=== PATIENT | male | born 1935 | race Caucasian/White ===

== ENCOUNTER 2017-11-22 22:45 | Inpatient (IN) | payer MEDICARE ==
[2017-11-22 22:46] VITALS: BMI 25.8
--- NOTE | 2017-11-22 23:19 | ED PDOC ---
HPI:STROKE - Time Time: 22:50 (on arrival in ED) - Historian Historian: Patient, Family (daughter) - Chief Complaint Chief Complaint: Weakness - Onset Date: 11/22/17 (82 year old male with altered mental status was brought into the ED by family members complaining of weakness onset three days ago. 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 Reports patient has decreased in response, PO intake, and is unresponsive. Patient take daily Plavix. ) NIHSS Stroke Scale - Date/Time Evaluation Performed Date Performed: 11/22/17 Time Performed: 22:50 When Was NIHSS Performed: Baseline - How Severe is the Stroke Level of Consciousness: 1=Drowsy LOC to Questions: 2=Neither correct LOC to commands: 2=Neither correct Best Gaze: 0=Normal Visual: 1=Partial hemianopia Facial: 0=Normal Motor Arm - Left: 1=Drift noted before 10 sec (from prior stroke) Motor Arm - Right: 0=No drift Motor Leg - Left: 1=Drift before 5 sec Motor Leg - Right: 0=No drift Limb Ataxia: 0=Absent Sensory: 1=Mild to moderate loss Best Language: 2=Severe aphasia Dysarthia: 2=Severe, near unintelligible or worse Extinction & Inattention (Neglect): 1=Partial neglect (mild partha-attention) Score: 14 Severity Of Stroke: 5-15 = Moderate Stroke rTPA Inclusion/Exclusion - Refusal of Treatment Patient Refused Treatment: No - Inclusion Criteria for Altepase Patient is 18 years or Older: Yes The Clinical Diagnosis of Ischemic Stroke That is Causing a Potentially Disabling Neurological Deficit: No Time of Onset is Well Established to be Less Than 270 Minute Before Treatment Would Begin: No Risk/Benefit Discussed With Patient/Family Member Present: No - Exclusion Criteria for Altepase Uncontrolled Hypertension at Time of Treatment (Systolic BP above 185 or Diastolic BP above 110 mmHg): No Active Internal Bleeding: No Known Bleeding Diathesis Including but Not Limited to: Platelets Below 100,000/ mm,PTT Above 40 sec After Heparin Use, Current Use of Oral Anitcoagulant With INR Greater Than 1.7 or PT Greater Than 15 secs: No Evidence of an Intracranial Hemorrhage: No Evidence of Major Acute Infarct With Signs Greater Than 1/3 MCA Territory: No Suspicion of Subarachnoid Hemorrhage on Pretreatment Evaluation Even if CT Head Negative For Hemorrhage: No - Warning to TPA With Conditions Following Conditions Weighed Against Anticipated Benefit: No Past Medical History Reviewed: Historical Data, Nursing Documentation, Vital Signs Vital Signs: Last Vital Signs Temp Pulse 74 11/22/17 23:05 Resp 18 11/22/17 23:05 BP 135/87 11/22/17 23:05 Pulse Ox 94 L 11/22/17 23:05 - Medical History PMH: CVA (2003), HTN Denies: Chronic Kidney Disease - Surgical History Surgical History: No Surg Hx - Family History Family History: States: Unknown Family Hx - Social History Current smoker - smoking cessation education provided: No Alcohol: None Drugs: Denies - Home Medications Home Medications: Ambulatory Orders Medication Instructions Recorded Clopidogrel [Plavix] 75 mg PO DAILY #0 tab 02/11/15 Metoprolol Succinate [Toprol XL] 50 mg PO DAILY #0 tab 02/11/15 - Allergies Allergies/Adverse Reactions: Allergies Allergy/AdvReac Type Severity Reaction Status Date / Time No Known Allergies Allergy Verified 02/08/15 17:24 Review of Systems ROS Statement: Except As Marked, All Systems Reviewed And Found Negative Gastrointestinal: Positive for: Other (decreased PO intake) Neurological: Positive for: Weakness, Other (decreased response; unresponsive) Psych: Negative for: Suicidal ideation (homicidal ideation) Physical Exam - Reviewed Nursing Documentation Reviewed: Yes Vital Signs Reviewed: Yes - Physical Exam Appears: Positive for: Well, No Acute Distress (thin elderly male) Head Exam: Positive for: ATRAUMATIC, NORMAL INSPECTION, NORMOCEPHALIC Skin: Positive for: Normal Color, Dry (dry mucous membranes) Eye Exam: Positive for: EOMI, Normal appearance, PERRL Neck: Positive for: Normal, Painless ROM Cardiovascular/Chest: Positive for: Regular Rate, Rhythm Respiratory: Positive for: Decreased Breath Sounds Gastrointestinal/Abdominal: Positive for: Normal Exam, Soft Neurologic/Psych: Negative for: Alert, Oriented - Laboratory Results Result Diagrams: 11/23/17 05:10 11/23/17 05:10 - ECG O2 Sat by Pulse Oximetry: 94 (RA) Pulse Ox Interpretation: Normal - Critical Care Total Time (In Min): 30 Medical Decision Making Medical Decision Making: Time: 2304 Initial Plan: altered mental status, apahasia for 3 days rule out stroke rule out electrolye abnormalities rule out infection --BBK --Head w/o (code stroke) [CT] --EKG --CMP --Hemoglobin A1C --Lipid Panel --Troponin I --CBC w/ differential --Partial Thromboplastin Time [COAG] --Prothrombin Time [COAG] --Chest portable [RAD] --Glucose, POC Routine --awake overnight monitor --ED obtain labs --Glucose, Blood, POC --Nursing Swallow Screen once --Vital Signs --Swallow Eval & Treat Routine --Reevaluation Time: 2329 EXAM: CT Head Without Intravenous Contrast FINDINGS: Brain: Prominence of the sulci and ventricular system consistent with atrophy. Diffuse hypodensity throughout the white matter consistent with chronic small vessel disease. No intracranial mass, mass effect, or midline shift. No hemorrhage. Ventricles: See above. Bones/joints: Unremarkable. No acute fracture. Soft tissues: Unremarkable. Sinuses: Left maxillary sinus mucous retention cyst versus polyp. Mastoid air cells: Unremarkable as visualized. No mastoid effusion. IMPRESSION: 1. No acute intracranial abnormality. 2. Remainder of findings as above. Time: [address] Ojeda. service correspondent Dr. Ojeda wanted to administer 300mg ASA rectally and perform MRI of the brain and CTA in the morning. Time: [address] Enriquez and intensive care dr , Dr. Haider who will accept patient. Time: 99 Rectal temperature was 96 so bear-huggers placed. fole yplace for urine as well. iv fluids ordered NA resulted 160. pt hypernatremic, with renal failure as well. VBG shows acidosis. ordered ABG as well. changed fluids to 1/2NS due to hypernatremia. Dr Haider came to bedside to see patient. DX hypernatremia, alterred mental status Scribe Attestation: Documented by Rakesh Willett, acting as a scribe for Makenzie Johnson MD Provider Scribe Attestation: All medical record entries made by the Scribe were at my direction and personally dictated by me. I have reviewed the chart and agree that the record accurately reflects my personal performance of the history, physical exam, medical decision making, and the department course for this patient. I have also personally directed, reviewed, and agree with the discharge instructions and disposition. Disposition - Clinical Impression Clinical Impression: Acute renal failure, Hypernatremia - Patient ED Disposition Is Patient to be Admitted: Yes - Disposition Disposition Time: 00:00 Condition: SERIOUS
[2017-11-22] MEDS ORDERED: Sodium Chloride 0.9% 1,000 ML IV STA (23:24)
--- NOTE | 2017-11-22 23:30 | CT ---
EXAM: CT Head Without Intravenous Contrast CLINICAL HISTORY: 82 years old, male; Signs and symptoms; Altered mental status/memory loss; Other: Weakness; Patient HX: HX of aneurysm; Additional info: Altered mental status for 3 days TECHNIQUE: Axial computed tomography images of the head/brain without intravenous contrast. All CT scans at this facility use one or more dose reduction techniques, viz.: automated exposure control; ma/kV adjustment per patient size (including targeted exams where dose is matched to indication; i.e. head); or iterative reconstruction technique. Coronal and sagittal reformatted images were created and reviewed. COMPARISON: No relevant prior studies available. FINDINGS: Brain: Prominence of the sulci and ventricular system consistent with atrophy. Diffuse hypodensity throughout the white matter consistent with chronic small vessel disease. No intracranial mass, mass effect, or midline shift. No hemorrhage. Ventricles: See above. Bones/joints: Unremarkable. No acute fracture. Soft tissues: Unremarkable. Sinuses: Left maxillary sinus mucous retention cyst versus polyp. Mastoid air cells: Unremarkable as visualized. No mastoid effusion. IMPRESSION: 1. No acute intracranial abnormality. 2. Remainder of findings as above.
[2017-11-22 23:37] LABS: BASO % 0.4 % (0.0-2.0); HEMOGLOBIN 19.4 g/dL (12.0-18.0); LYMPH # 1.3 K/uL (1.0-4.3); LYMPH % 9.8 % (20.0-40.0); MEAN CELL VOLUME 93.8 fl (80.0-94.0); MEAN CORPUSCULAR HEMOGLOBIN 30.2 pg (27.0-31.0); MEAN CORPUSCULAR HGB CONC 32.2 g/dL (33.0-37.0); MONO # 0.8 K/uL (0.0-0.8); MONO % 6.1 % (0.0-10.0); NEUT # 11.3 K/uL (1.8-7.0); NEUT % 83.7 % (50.0-75.0); PLATELET COUNT 167 K/uL (130-400); RBC 6.41 Mil/uL (4.40-5.90); RED CELL DISTRIBUTION WIDTH 13.9 % (11.5-14.5); WHITE BLOOD COUNT 13.5 K/uL (4.8-10.8)
[2017-11-23 00:01] LABS: TROPONIN I 0.102 ng/mL (0.00-0.120)
[2017-11-23 00:26] LABS: ALB/GLOB RATIO 0.9 (1.0-2.1); ALBUMIN 4.6 g/dL (3.5-5.0); CALCIUM 10.3 mg/dL (8.4-10.2)
--- NOTE | 2017-11-23 00:55 | CP.PCM.CON ---
History of Present Illness - History of Present Illness History of Present Illness: CC: AMS History obtained from family HPI: This is an 82 y/o male with prior CVA and L sided paralysis and HTN who was brought in by family after they noted him to not be eating very well the last 3 days and becoming significantly less communicative since this AM. Per family, patient has not complained of anything specific -- no CP, no f/c/n/v/d. Patient has not been drinking much fluid last few days either. ROS: Patient cannot perform due to AMS MHx: CVA in 2003 with L side paralysis, HTN SHx: None noted Allergies: NKDA Medications: Per med rec, completion pending Family Hx: Cannot provide, prior history in chart notes no important family Hx Social Hx: Lives with family, no tobacco or EtOH Past Patient History - Past Medical History & Family History Past Medical History?: Yes - Past Social History Alcohol: None Drugs: Denies - CARDIAC Hx Hypertension: Yes - PULMONARY Hx Respiratory Disorders: No - NEUROLOGICAL HX Cerebrovascular Accident: Yes (CVA 2003) - HEENT Hx HEENT Problems: No - RENAL Hx Chronic Kidney Disease: No - ENDOCRINE/METABOLIC Hx Endocrine Disorders: No - HEMATOLOGICAL/ONCOLOGICAL Hx Blood Disorders: No - INTEGUMENTARY Hx Dermatological Problems: No - MUSCULOSKELETAL/RHEUMATOLOGICAL Hx Musculoskeletal Disorders: No Hx Falls: No - GASTROINTESTINAL Hx Gastrointestinal Disorders: No - GENITOURINARY/GYNECOLOGICAL Hx Genitourinary Disorders: No - PSYCHIATRIC Hx Psychophysiologic Disorder: No Hx Substance Use: No - SURGICAL HISTORY Hx Surgeries: No - ANESTHESIA Hx Anesthesia: Yes Hx Anesthesia Reactions: No Hx Malignant Hyperthermia: No Meds Allergies/Adverse Reactions: Allergies Allergy/AdvReac Type Severity Reaction Status Date / Time No Known Allergies Allergy Verified 02/08/15 17:24 - Medications Medications: Current Medications Aspirin (Aspirin Supp) 300 mg NV DAILY ALANNAH Heparin Sodium (Porcine) (Heparin) 5,000 units SC Q8 ALANNAH PRN Reason: Protocol Sodium Chloride (Sodium Chloride 0.45%) 1,000 mls @ 200 mls/hr IV .Q5H ALANNAH Stop: 11/23/17 10:59 Insulin Human Lispro (Humalog) 0 units SC Q6H ALANNAH PRN Reason: Protocol Physical Exam - Constitutional Appears: Confused - Head Exam Head Exam: ATRAUMATIC, NORMOCEPHALIC - Eye Exam Eye Exam: EOMI, PERRL - ENT Exam ENT Exam: Mucous Membranes Dry - Neck Exam Neck exam: Positive for: Full Rom - Respiratory Exam Respiratory Exam: Clear to Auscultation Bilateral, NORMAL BREATHING PATTERN - Cardiovascular Exam Cardiovascular Exam: REGULAR RHYTHM, +S1, +S2 - GI/Abdominal Exam GI & Abdominal Exam: Normal Bowel Sounds, Soft - Extremities Exam Additional comments: Patient with paralysis of L side of body - Neurological Exam Additional comments: altered, does not answer questions, but does follow some commands - Skin Skin Exam: Dry, Warm Results - Vital Signs Recent Vital Signs: Last Vital Signs Temp Pulse 109 H 11/22/17 23:37 Resp 18 11/22/17 23:37 BP 109/76 11/22/17 23:37 Pulse Ox 94 L 11/23/17 00:43 - Labs Result Diagrams: 11/22/17 23:34 11/22/17 23:34 Labs: Laboratory Results - last 24 hr 11/22/17 11/22/17 11/22/17 22:58 23:34 23:34 WBC 13.5 H RBC 6.41 H Hgb 19.4 H Hct 60.1 H MCV 93.8 MCH 30.2 MCHC 32.2 L RDW 13.9 Plt Count 167 MPV 12.0 H Neut % (Auto) 83.7 H Lymph % (Auto) 9.8 L [place] % (Auto) 6.1 Eos % (Auto) 0.0 Baso % (Auto) 0.4 Neut # (Auto) 11.3 H Lymph # (Auto) 1.3 [place] # (Auto) 0.8 Eos # (Auto) 0.0 Baso # (Auto) 0.0 Sodium 166 H* Potassium 4.2 Chloride 114 H Carbon Dioxide 18 L Anion Gap 38 H BUN 99 H Creatinine 2.6 H Est GFR ( Amer) 29 Est GFR (Non-Af Amer) 24 POC Glucose (mg/dL) 188 H Random Glucose 249 H Calcium 10.3 H Total Bilirubin 1.6 H AST 96 H ALT 65 Alkaline Phosphatase 123 Troponin I 0.1020 Total Protein 9.7 H Albumin 4.6 Globulin 5.2 H Albumin/Globulin Ratio 0.9 L Triglycerides 217 H Cholesterol 232 H LDL Cholesterol Direct 140 H HDL Cholesterol 42 - Imaging and Cardiology CT scan - head Status: Image reviewed by me, Report reviewed by me (IMPRESSION:) Assessment & Plan (1) Altered mental status Assessment and Plan: 82 y/o male with AMS being admitted to ICU because of severe hypernatremia, possible CVA. 1) AMS/possible CVA vs. electrolyte abnormality -admit ICU -NPO, IVF for now -ASA 300 NV x 1 now -Neuro Consult (Ojeda) in AM -Possible CTA and MRI (some of this may depend on renal function) -Consider Carotid doppler if unable to do CTA, and obtain echo as well -Serial trops -Swallow eval in AM given patient with difficulty swallowing 2) Likely ARF as well as electrolyte abn (hypernatremia) -Per calculation, FW deficit is about 5 L; will use 1/2 NS for now, which will require about 10 L total; to correct at only 0.5 mEq/hr and avoid complication do to overly rapid correction, max per hour is 240 cc; will start at 200 cc/hr and repeat BMP this AM and re-assess -UA, Ulytes, UCr, Uosms, serum osms 3) DM2 -NPO for now -q6h accucheck with SSI 4) DVT PPx -- SQ heparin Status: Acute (2) CVA (cerebral vascular accident) Status: Acute (3) Hypernatremia Status: Acute (4) Acute renal failure Status: Acute (5) DM2 (diabetes mellitus, type 2) Status: Acute (6) DVT prophylaxis Status: Acute
[2017-11-23] MEDS ORDERED: Insulin Lispro (humaLOG) 100 Units/ml Inj SC SCH (01:00)
[2017-11-23] MEDS ORDERED: Sodium Chloride 0.45% 1,000 ML IV SCH (01:00)
[2017-11-23 01:14] LABS: VENOUS BLOOD GAS BASE EXCESS -9.9 mmol/L (0.0-2.0); VENOUS BLOOD GAS PCO2 79 mmHg (40-60); VENOUS BLOOD GAS PO2 39 mm/Hg (30-55); VENOUS BLOOD PH 7.07 (7.32-7.43)
[2017-11-23 01:20] LABS: INR 1.2 (0.9-1.2); PARTIAL THROMBOPLASTIN TIME 31.3 Seconds (25.6-37.1); PROTHROMBIN TIME 12.8 Seconds (9.8-13.1); SQUAMOUS EPITHIAL < 1 /hpf (0-5); URINE BACTERIA RARE (<OCC); URINE BILIRUBIN NEGATIVE (NEGATIVE); URINE BLOOD SMALL (NEGATIVE); URINE CLARITY SLIGHTY-CLOUDY (Clear); URINE COLOR AMBER (YELLOW); URINE GLUCOSE (UA) NEG (Normal); URINE LEUKOCYTE ESTERASE NEG Leu/uL (Negative); URINE PROTEIN 30 mg/dL (NEGATIVE)
[2017-11-23 01:56] LABS: ANISOCYTOSIS SLIGHT; LYMPHOCYTE 9 % (20-50); MONOCYTE 1 % (0-10); NEUTROPHIL 88 % (42-75); PLATELET ESTIMATE NORMAL (NORMAL); REACTIVE LYMPHOCYTES 2 % (0-0); TEARDROP CELLS SLIGHT; TOTAL CELLS COUNTED 100
[2017-11-23 02:00] LABS: CREATININE, RANDOM URINE 314.5 mg/dL
[2017-11-23 05:59] LABS: HEMOGLOBIN 16.9 g/dL (12.0-18.0); MEAN CELL VOLUME 93.5 fl (80.0-94.0); MEAN CORPUSCULAR HEMOGLOBIN 30.1 pg (27.0-31.0); MEAN CORPUSCULAR HGB CONC 32.2 g/dL (33.0-37.0); RBC 5.59 Mil/uL (4.40-5.90); RED CELL DISTRIBUTION WIDTH 13.9 % (11.5-14.5); WHITE BLOOD COUNT 12.3 K/uL (4.8-10.8)
[2017-11-23 06:27] LABS: CALCIUM 8.1 mg/dL (8.4-10.2)
--- NOTE | 2017-11-23 09:09 | RAD ---
HISTORY: Code Stroke COMPARISON: No prior. FINDINGS: LUNGS: No active pulmonary disease. PLEURA: No significant pleural effusion identified, no pneumothorax apparent. CARDIOVASCULAR: Atherosclerotic aortic calcifications. Cardiomediastinal silhouette within normal limits. OSSEOUS STRUCTURES: Degenerative changes. VISUALIZED UPPER ABDOMEN: Normal. OTHER FINDINGS: None. IMPRESSION: No active disease.
[2017-11-23] MEDS: Insulin Lispro (humaLOG) 100 Units/ml Inj SC SCH ×3 (12:00→23:15)
--- NOTE | 2017-11-23 12:28 | CP.PCM.HP ---
History of Present Illness - History of Present Illness History of Present Illness: Cc: Weakness An 82 y/o male with prior CVA and L sided paralysis and HTN who was brought in by family after they noted him to not be eating very well the last 3 days and becoming significantly less communicative since this AM. Per family, patient has not complained of anything specific -- no CP, no f/c/n/v/d. Patient has not been drinking much fluid past few days. Present on Admission - Present on Admission Any Indicators Present on Admission: No Review of Systems - Review of Systems Review of Systems: Unable to perform ROS because patient cannot provide information Past Patient History - Past Medical History & Family History Past Medical History?: Yes - Past Social History Alcohol: None Drugs: Denies - CARDIAC Hx Hypertension: Yes - PULMONARY Hx Respiratory Disorders: No - NEUROLOGICAL HX Cerebrovascular Accident: Yes (CVA 2003) - HEENT Hx HEENT Problems: No - RENAL Hx Chronic Kidney Disease: No - ENDOCRINE/METABOLIC Hx Endocrine Disorders: No - HEMATOLOGICAL/ONCOLOGICAL Hx Blood Disorders: No Hx AIDS: No Hx Human Immunodeficiency Virus (HIV): No - INTEGUMENTARY Hx Dermatological Problems: No - MUSCULOSKELETAL/RHEUMATOLOGICAL Hx Musculoskeletal Disorders: No Hx Falls: No - GASTROINTESTINAL Hx Gastrointestinal Disorders: No - GENITOURINARY/GYNECOLOGICAL Hx Genitourinary Disorders: No - PSYCHIATRIC Hx Psychophysiologic Disorder: No Hx Substance Use: No - SURGICAL HISTORY Hx Surgeries: No - ANESTHESIA Hx Anesthesia: Yes Hx Anesthesia Reactions: No Hx Malignant Hyperthermia: No Meds Allergies/Adverse Reactions: Allergies Allergy/AdvReac Type Severity Reaction Status Date / Time No Known Allergies Allergy Verified 02/08/15 17:24 Physical Exam - Constitutional Appears: Well, No Acute Distress - Head Exam Head Exam: ATRAUMATIC, NORMOCEPHALIC - Eye Exam Eye Exam: EOMI, Normal appearance - ENT Exam ENT Exam: Mucous Membranes Moist - Neck Exam Neck exam: Positive for: Normal Inspection - Respiratory Exam Respiratory Exam: Clear to Auscultation Bilateral, NORMAL BREATHING PATTERN - Cardiovascular Exam Cardiovascular Exam: REGULAR RHYTHM, +S1, +S2 - GI/Abdominal Exam GI & Abdominal Exam: Normal Bowel Sounds, Soft - Extremities Exam Additional comments: moves extremities but has left sided weakness - Back Exam Back exam: NORMAL INSPECTION - Neurological Exam Neurological exam: Altered - Skin Skin Exam: Normal Color, Warm Results - Vital Signs Recent Vital Signs: Last Vital Signs Temp 97.6 F 04/20/18 08:00 Pulse 93 H 11/23/17 10:00 Resp 16 11/23/17 10:00 BP 114/81 11/23/17 10:00 Pulse Ox 98 11/23/17 10:00 - Labs Result Diagrams: 11/26/17 05:00 11/26/17 05:00 Labs: Laboratory Results - last 24 hr 11/22/17 11/22/17 11/22/17 22:58 23:34 23:34 WBC 13.5 H RBC 6.41 H Hgb 19.4 H Hct 60.1 H MCV 93.8 MCH 30.2 MCHC 32.2 L RDW 13.9 Plt Count 167 MPV 12.0 H Neut % (Auto) 83.7 H Lymph % (Auto) 9.8 L [place] % (Auto) 6.1 Eos % (Auto) 0.0 Baso % (Auto) 0.4 Neut # (Auto) 11.3 H Lymph # (Auto) 1.3 [place] # (Auto) 0.8 Eos # (Auto) 0.0 Baso # (Auto) 0.0 Neutrophils % (Manual) 88 H Lymphocytes % (Manual) 9 L Reactive Lymphs % 2 H Monocytes % (Manual) 1 Platelet Estimate Normal Anisocytosis (manual) Slight Tear Drop Cells Slight PT INR APTT pO2 ABG Carboxyhemoglobin POC ABG HHb (Measured) ABG Methemoglobin VBG pH VBG pCO2 VBG HCO3 VBG O2 Sat (Calc) VBG Base Excess VBG Hgb O2 Saturation Hemoglobin Crit Value Called To Crit Value Called By Crit Value Read Back Blood Gas Notified Time Sodium 166 H* Potassium 4.2 Chloride 114 H Carbon Dioxide 18 L Anion Gap 38 H BUN 99 H Creatinine 2.6 H Est GFR ( Amer) 29 Est GFR (Non-Af Amer) 24 POC Glucose (mg/dL) 188 H Random Glucose 249 H Serum Osmolality Calcium 10.3 H Total Bilirubin 1.6 H AST 96 H ALT 65 Alkaline Phosphatase 123 Troponin I 0.1020 Total Protein 9.7 H Albumin 4.6 Globulin 5.2 H Albumin/Globulin Ratio 0.9 L Triglycerides 217 H Cholesterol 232 H LDL Cholesterol Direct 140 H HDL Cholesterol 42 Urine Color Urine Clarity Urine pH Ur Specific [place] Urine Protein Urine Glucose (UA) Urine Ketones Urine Blood Urine Nitrate Urine Bilirubin Urine Urobilinogen Ur Leukocyte Esterase Urine RBC (Auto) Urine Microscopic WBC Ur Squamous Epith Cells Urine Bacteria Hyaline Casts Urine Osmolality Ur Random Creatinine Ur Random Sodium Ur Random Potassium Blood Type Blood Type Confirm Antibody Screen BBK History Checked 11/23/17 11/23/17 11/23/17 00:50 01:09 01:09 WBC RBC Hgb Hct MCV MCH MCHC RDW Plt Count MPV Neut % (Auto) Lymph % (Auto) [place] % (Auto) Eos % (Auto) Baso % (Auto) Neut # (Auto) Lymph # (Auto) [place] # (Auto) Eos # (Auto) Baso # (Auto) Neutrophils % (Manual) Lymphocytes % (Manual) Reactive Lymphs % Monocytes % (Manual) Platelet Estimate Anisocytosis (manual) Tear Drop Cells PT 12.8 INR 1.2 APTT 31.3 pO2 ABG Carboxyhemoglobin POC ABG HHb (Measured) ABG Methemoglobin VBG pH VBG pCO2 VBG HCO3 VBG O2 Sat (Calc) VBG Base Excess VBG Hgb O2 Saturation Hemoglobin Crit Value Called To Crit Value Called By Crit Value Read Back Blood Gas Notified Time Sodium Potassium Chloride Carbon Dioxide Anion Gap BUN Creatinine Est GFR ( Amer) Est GFR (Non-Af Amer) POC Glucose (mg/dL) Random Glucose Serum Osmolality Calcium Total Bilirubin AST ALT Alkaline Phosphatase Troponin I Total Protein Albumin Globulin Albumin/Globulin Ratio Triglycerides Cholesterol LDL Cholesterol Direct HDL Cholesterol Urine Color [place] Urine Clarity Slighty-cloudy Urine pH 5.0 Ur Specific [place] 1.025 Urine Protein 30 Urine Glucose (UA) Neg Urine Ketones Negative Urine Blood Small Urine Nitrate Negative Urine Bilirubin Negative Urine Urobilinogen 2.0 Ur Leukocyte Esterase Neg Urine RBC (Auto) 2 Urine Microscopic WBC 3 Ur Squamous Epith Cells < 1 Urine Bacteria Rare Hyaline Casts 11-20 H Urine Osmolality Ur Random Creatinine Ur Random Sodium Ur Random Potassium Blood Type O POSITIVE Blood Type Confirm Antibody Screen Negative BBK History Checked No verified bt 11/23/17 11/23/17 11/23/17 01:09 01:27 02:37 WBC RBC Hgb Hct MCV MCH MCHC RDW Plt Count MPV Neut % (Auto) Lymph % (Auto) [place] % (Auto) Eos % (Auto) Baso % (Auto) Neut # (Auto) Lymph # (Auto) [place] # (Auto) Eos # (Auto) Baso # (Auto) Neutrophils % (Manual) Lymphocytes % (Manual) Reactive Lymphs % Monocytes % (Manual) Platelet Estimate Anisocytosis (manual) Tear Drop Cells PT INR APTT pO2 39 ABG Carboxyhemoglobin 2.2 H POC ABG HHb (Measured) 37.8 H ABG Methemoglobin 2.5 VBG pH 7.07 L* VBG pCO2 79 H* VBG HCO3 15.6 VBG O2 Sat (Calc) 60.3 VBG Base Excess -9.9 L VBG Hgb O2 Saturation 57.5 L Hemoglobin 19.6 H Crit Value Called To Dr lottie gracia Crit Value Called By 292 Crit Value Read Back Y Blood Gas Notified Time 114 Sodium Potassium Chloride Carbon Dioxide Anion Gap BUN Creatinine Est GFR ( Amer) Est GFR (Non-Af Amer) POC Glucose (mg/dL) 211 H Random Glucose Serum Osmolality Calcium Total Bilirubin AST ALT Alkaline Phosphatase Troponin I Total Protein Albumin Globulin Albumin/Globulin Ratio Triglycerides Cholesterol LDL Cholesterol Direct HDL Cholesterol Urine Color Urine Clarity Urine pH Ur Specific [place] Urine Protein Urine Glucose (UA) Urine Ketones Urine Blood Urine Nitrate Urine Bilirubin Urine Urobilinogen Ur Leukocyte Esterase Urine RBC (Auto) Urine Microscopic WBC Ur Squamous Epith Cells Urine Bacteria Hyaline Casts Urine Osmolality 725 Ur Random Creatinine 314.5 Ur Random Sodium 10 Ur Random Potassium 67.5 Blood Type Blood Type Confirm Antibody Screen BBK History Checked 11/23/17 11/23/17 11/23/17 05:10 05:10 05:10 WBC 12.3 H RBC 5.59 Hgb 16.9 D Hct 52.3 H MCV 93.5 MCH 30.1 MCHC 32.2 L RDW 13.9 Plt Count 135 MPV Neut % (Auto) Lymph % (Auto) [place] % (Auto) Eos % (Auto) Baso % (Auto) Neut # (Auto) Lymph # (Auto) [place] # (Auto) Eos # (Auto) Baso # (Auto) Neutrophils % (Manual) Lymphocytes % (Manual) Reactive Lymphs % Monocytes % (Manual) Platelet Estimate Anisocytosis (manual) Tear Drop Cells PT INR APTT pO2 ABG Carboxyhemoglobin POC ABG HHb (Measured) ABG Methemoglobin VBG pH VBG pCO2 VBG HCO3 VBG O2 Sat (Calc) VBG Base Excess VBG Hgb O2 Saturation Hemoglobin Crit Value Called To Crit Value Called By Crit Value Read Back Blood Gas Notified Time Sodium 153 H Potassium 3.2 L Chloride 107 Carbon Dioxide 25 Anion Gap 24 H BUN 90 H Creatinine 2.1 H Est GFR ( Amer) 37 Est GFR (Non-Af Amer) 31 POC Glucose (mg/dL) Random Glucose 198 H Serum Osmolality 349 H Calcium 8.1 L Total Bilirubin AST ALT Alkaline Phosphatase Troponin I Total Protein Albumin Globulin Albumin/Globulin Ratio Triglycerides Cholesterol LDL Cholesterol Direct HDL Cholesterol Urine Color Urine Clarity Urine pH Ur Specific [place] Urine Protein Urine Glucose (UA) Urine Ketones Urine Blood Urine Nitrate Urine Bilirubin Urine Urobilinogen Ur Leukocyte Esterase Urine RBC (Auto) Urine Microscopic WBC Ur Squamous Epith Cells Urine Bacteria Hyaline Casts Urine Osmolality Ur Random Creatinine Ur Random Sodium Ur Random Potassium Blood Type Blood Type Confirm Antibody Screen BBK History Checked 11/23/17 11/23/17 11/23/17 05:15 06:30 06:47 WBC RBC Hgb Hct MCV MCH MCHC RDW Plt Count MPV Neut % (Auto) Lymph % (Auto) [place] % (Auto) Eos % (Auto) Baso % (Auto) Neut # (Auto) Lymph # (Auto) [place] # (Auto) Eos # (Auto) Baso # (Auto) Neutrophils % (Manual) Lymphocytes % (Manual) Reactive Lymphs % Monocytes % (Manual) Platelet Estimate Anisocytosis (manual) Tear Drop Cells PT INR APTT pO2 ABG Carboxyhemoglobin POC ABG HHb (Measured) ABG Methemoglobin VBG pH VBG pCO2 VBG HCO3 VBG O2 Sat (Calc) VBG Base Excess VBG Hgb O2 Saturation Hemoglobin Crit Value Called To Crit Value Called By Crit Value Read Back Blood Gas Notified Time Sodium Potassium Chloride Carbon Dioxide Anion Gap BUN Creatinine Est GFR ( Amer) Est GFR (Non-Af Amer) POC Glucose (mg/dL) 195 H Random Glucose Serum Osmolality Calcium Total Bilirubin AST ALT Alkaline Phosphatase Troponin I 0.0960 Total Protein Albumin Globulin Albumin/Globulin Ratio Triglycerides Cholesterol LDL Cholesterol Direct HDL Cholesterol Urine Color Urine Clarity Urine pH Ur Specific [place] Urine Protein Urine Glucose (UA) Urine Ketones Urine Blood Urine Nitrate Urine Bilirubin Urine Urobilinogen Ur Leukocyte Esterase Urine RBC (Auto) Urine Microscopic WBC Ur Squamous Epith Cells Urine Bacteria Hyaline Casts Urine Osmolality Ur Random Creatinine Ur Random Sodium Ur Random Potassium Blood Type Blood Type Confirm O POSITIVE Antibody Screen BBK History Checked 11/23/17 11:59 WBC RBC Hgb Hct MCV MCH MCHC RDW Plt Count MPV Neut % (Auto) Lymph % (Auto) [place] % (Auto) Eos % (Auto) Baso % (Auto) Neut # (Auto) Lymph # (Auto) [place] # (Auto) Eos # (Auto) Baso # (Auto) Neutrophils % (Manual) Lymphocytes % (Manual) Reactive Lymphs % Monocytes % (Manual) Platelet Estimate Anisocytosis (manual) Tear Drop Cells PT INR APTT pO2 ABG Carboxyhemoglobin POC ABG HHb (Measured) ABG Methemoglobin VBG pH VBG pCO2 VBG HCO3 VBG O2 Sat (Calc) VBG Base Excess VBG Hgb O2 Saturation Hemoglobin Crit Value Called To Crit Value Called By Crit Value Read Back Blood Gas Notified Time Sodium Potassium Chloride Carbon Dioxide Anion Gap BUN Creatinine Est GFR ( Amer) Est GFR (Non-Af Amer) POC Glucose (mg/dL) 191 H Random Glucose Serum Osmolality Calcium Total Bilirubin AST ALT Alkaline Phosphatase Troponin I Total Protein Albumin Globulin Albumin/Globulin Ratio Triglycerides Cholesterol LDL Cholesterol Direct HDL Cholesterol Urine Color Urine Clarity Urine pH Ur Specific [place] Urine Protein Urine Glucose (UA) Urine Ketones Urine Blood Urine Nitrate Urine Bilirubin Urine Urobilinogen Ur Leukocyte Esterase Urine RBC (Auto) Urine Microscopic WBC Ur Squamous Epith Cells Urine Bacteria Hyaline Casts Urine Osmolality Ur Random Creatinine Ur Random Sodium Ur Random Potassium Blood Type Blood Type Confirm Antibody Screen BBK History Checked - Imaging and Cardiology CT scan - head Additional comment: HEAD W/O CONTRAST Exam Date: 11/22/17 This imaging exam was performed at [facility] EXAM: CT Head Without Intravenous Contrast CLINICAL HISTORY: 82 years old, male; Signs and symptoms; Altered mental status/memory loss; Other: Weakness; Patient HX: HX of aneurysm; Additional info: Altered mental status for 3 days TECHNIQUE: Axial computed tomography images of the head/brain without intravenous contrast. All CT scans at this facility use one or more dose reduction techniques, viz.: automated exposure control; ma/kV adjustment per patient size (including targeted exams where dose is matched to indication; i.e. head); or iterative reconstruction technique. Coronal and sagittal reformatted images were created and reviewed. COMPARISON: No relevant prior studies available. FINDINGS: Brain: Prominence of the sulci and ventricular system consistent with atrophy. Diffuse hypodensity throughout the white matter consistent with chronic small vessel disease. No intracranial mass, mass effect, or midline shift. No hemorrhage. Ventricles: See above. Bones/joints: Unremarkable. No acute fracture. Soft tissues: Unremarkable. Sinuses: Left maxillary sinus mucous retention cyst versus polyp. Mastoid air cells: Unremarkable as visualized. No mastoid effusion. IMPRESSION: 1. No acute intracranial abnormality. 2. Remainder of findings as above. Assessment & Plan (1) Altered mental status Assessment and Plan: Metabolic due to Hypernatremia and Uremia Vs R/O CVA Less Likely Admit to ICU Neuro checks Neuro consult MRI of brain correct hypernatremia slowly Status: Acute Priority: High (2) Hypokalemia Assessment and Plan: Replenish potassium Status: Acute Priority: High (3) Dementia Status: Chronic Priority: Low (4) Acute renal failure Assessment and Plan: IVF Status: Acute Priority: High (5) DM2 (diabetes mellitus, type 2) Assessment and Plan: Insulin sliding scale Status: Chronic Priority: Medium (6) History of CVA with residual deficit Assessment and Plan: Old cva with left sided hemiplegia per family chronic Heparin SQ ASA daily Status: Chronic Priority: Medium
[2017-11-23] MEDS: Sodium Chloride 0.45% 1,000 ML IV SCH (12:36)
[2017-11-23] MEDS ORDERED: Pneumococcal 23-Valent Vaccine IM ONE (13:15)
--- NOTE | 2017-11-23 15:26 | MRI ---
PROCEDURE: MRI BRAIN WITHOUT CONTRAST HISTORY: aphasia for three days COMPARISON: Unenhanced head CT 11/22/2017 TECHNIQUE: Multiplanar, multisequence MR images of the brain were obtained without intravenous contrast enhancement. FINDINGS: HEMORRHAGE: Hemosiderin is identified related to prior to prior right temporal lobe/basal ganglia chronic infarct and laminar necrosis. 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 DWI: A small, acute or subacute infarct is identified at the medial left temporal lobe measuring approximately 1 cm size. No acute or subacute lobar brain infarction is identified. BRAIN PARENCHYMA: The posterior right basal ganglia and medial right temporal lobe chronic infarct is reiterated as well as diffuse cerebral atrophy chronic microangiopathy. Diffuse cerebral atrophy is reiterated. A small left periventricular chronic lacune is seen at the left frontal lobe superiorly. There is no interval mass effect and midline brain anatomy remains unremarkable with the exception of chronic microangiopathy in the fred. Numerous dilated perisplenic cyst identified in the bilateral basal ganglia with underlying chronic lacune infarcts not excluded. No suspicious extra-axial findings. VENTRICLES: Unremarkable. No hydrocephalus. CRANIUM: Unremarkable. ORBITS: Grossly unremarkable. PARANASAL SINUSES/MASTOIDS: Clear VASCULAR SYSTEM: Skull base flow voids intact. OTHER FINDINGS: None. IMPRESSION: 1. A very small acute or subacute infarction is seen at the medial left temporal lobe approaching the parietal lobe. No acute or subacute lobar brain infarction appreciable. 2. Chronic lobar infarction involving the right basal ganglia and temporal lobe reiterated including chronic hemosiderin deposition at the posteromedial margins. 3. Reiteration of age related neuro degenerative change.
--- NOTE | 2017-11-23 17:35 | CP.PCM.CON ---
History of Present Illness - History of Present Illness History of Present Illness: 82 year old male, pmh of hypertension and multiple right sided brain aneurysms (2003, 2005) altered mental status was brought into the ED by family members complaining of weakness onset three days ago with decreased PO intake. MRI Brain was done and shows a small acute to subacute stroke in the medial temporal lobe with a chronic basal ganglia stroke. On admission, patient was found to have hypernatremia and acute renal failure. There were no witnessed seizures as of yet. PMH/PSH: HTN, history of intracerebral aneurysms FH/SH: non contributory All: nkda on exam: Lethargic but arouseable. localizes well to sternal rub PERRL. +left sided ptosis, partial nonverbal but follows commands sporadically. 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 Past Patient History - Past Medical History & Family History Past Medical History?: Yes - Past Social History Alcohol: None Drugs: Denies - CARDIAC Hx Hypertension: Yes - PULMONARY Hx Respiratory Disorders: No - NEUROLOGICAL HX Cerebrovascular Accident: Yes (CVA 2003) - HEENT Hx HEENT Problems: No - RENAL Hx Chronic Kidney Disease: No - ENDOCRINE/METABOLIC Hx Endocrine Disorders: No - HEMATOLOGICAL/ONCOLOGICAL Hx Blood Disorders: No Hx AIDS: No Hx Human Immunodeficiency Virus (HIV): No - INTEGUMENTARY Hx Dermatological Problems: No - MUSCULOSKELETAL/RHEUMATOLOGICAL Hx Musculoskeletal Disorders: No Hx Falls: No - GASTROINTESTINAL Hx Gastrointestinal Disorders: No - GENITOURINARY/GYNECOLOGICAL Hx Genitourinary Disorders: No - PSYCHIATRIC Hx Psychophysiologic Disorder: No Hx Substance Use: No - SURGICAL HISTORY Hx Surgeries: No - ANESTHESIA Hx Anesthesia: Yes Hx Anesthesia Reactions: No Hx Malignant Hyperthermia: No Meds Allergies/Adverse Reactions: Allergies Allergy/AdvReac Type Severity Reaction Status Date / Time No Known Allergies Allergy Verified 02/08/15 17:24 - Medications Medications: Current Medications Aspirin (Aspirin Supp) 300 mg [place] DAILY ALANNAH Last Admin: 11/23/17 09:29 Dose: 300 mg Heparin Sodium (Porcine) (Heparin) 5,000 units SC Q8 ALANNAH PRN Reason: Protocol Last Admin: 11/23/17 09:27 Dose: 5,000 units Sodium Chloride (Sodium Chloride 0.45%) 1,000 mls @ 100 mls/hr IV .Q10H ALANNAH Stop: 04/21/18 12:20 Last Admin: 11/23/17 12:36 Dose: 100 mls/hr Insulin Human Lispro (Humalog) 0 units SC 0000,0600,1200,1800 ALANNAH PRN Reason: Protocol Last Admin: 11/23/17 12:00 Dose: 1 unit Results - Vital Signs Recent Vital Signs: Last Vital Signs Temp 98 F 11/23/17 12:00 Pulse 91 H 11/23/17 12:00 Resp 15 11/23/17 12:00 BP 121/83 11/23/17 12:00 Pulse Ox 99 11/23/17 12:00 - Labs Result Diagrams: 11/23/17 05:10 11/23/17 05:10 Labs: Laboratory Results - last 24 hr 11/22/17 11/22/17 11/22/17 22:58 23:34 23:34 WBC 13.5 H RBC 6.41 H Hgb 19.4 H Hct 60.1 H MCV 93.8 MCH 30.2 MCHC 32.2 L RDW 13.9 Plt Count 167 MPV 12.0 H Neut % (Auto) 83.7 H Lymph % (Auto) 9.8 L Mcleod % (Auto) 6.1 Eos % (Auto) 0.0 Baso % (Auto) 0.4 Neut # (Auto) 11.3 H Lymph # (Auto) 1.3 Mcleod # (Auto) 0.8 Eos # (Auto) 0.0 Baso # (Auto) 0.0 Neutrophils % (Manual) 88 H Lymphocytes % (Manual) 9 L Reactive Lymphs % 2 H Monocytes % (Manual) 1 Platelet Estimate Normal Anisocytosis (manual) Slight Tear Drop Cells Slight PT INR APTT pO2 ABG Carboxyhemoglobin POC ABG HHb (Measured) ABG Methemoglobin VBG pH VBG pCO2 VBG HCO3 VBG O2 Sat (Calc) VBG Base Excess VBG Hgb O2 Saturation Hemoglobin Crit Value Called To Crit Value Called By Crit Value Read Back Blood Gas Notified Time Sodium 166 H* Potassium 4.2 Chloride 114 H Carbon Dioxide 18 L Anion Gap 38 H BUN 99 H Creatinine 2.6 H Est GFR ( Amer) 29 Est GFR (Non-Af Amer) 24 POC Glucose (mg/dL) 188 H Random Glucose 249 H Hemoglobin A1c Serum Osmolality Calcium 10.3 H Total Bilirubin 1.6 H AST 96 H ALT 65 Alkaline Phosphatase 123 Troponin I 0.1020 Total Protein 9.7 H Albumin 4.6 Globulin 5.2 H Albumin/Globulin Ratio 0.9 L Triglycerides 217 H Cholesterol 232 H LDL Cholesterol Direct 140 H HDL Cholesterol 42 Urine Color Urine Clarity Urine pH Ur Specific [place] Urine Protein Urine Glucose (UA) Urine Ketones Urine Blood Urine Nitrate Urine Bilirubin Urine Urobilinogen Ur Leukocyte Esterase Urine RBC (Auto) Urine Microscopic WBC Ur Squamous Epith Cells Urine Bacteria Hyaline Casts Urine Osmolality Ur Random Creatinine Ur Random Sodium Ur Random Potassium Blood Type Blood Type Confirm Antibody Screen BBK History Checked 11/23/17 11/23/17 11/23/17 00:50 01:09 01:09 WBC RBC Hgb Hct MCV MCH MCHC RDW Plt Count MPV Neut % (Auto) Lymph % (Auto) Mcleod % (Auto) Eos % (Auto) Baso % (Auto) Neut # (Auto) Lymph # (Auto) Mcleod # (Auto) Eos # (Auto) Baso # (Auto) Neutrophils % (Manual) Lymphocytes % (Manual) Reactive Lymphs % Monocytes % (Manual) Platelet Estimate Anisocytosis (manual) Tear Drop Cells PT 12.8 INR 1.2 APTT 31.3 pO2 ABG Carboxyhemoglobin POC ABG HHb (Measured) ABG Methemoglobin VBG pH VBG pCO2 VBG HCO3 VBG O2 Sat (Calc) VBG Base Excess VBG Hgb O2 Saturation Hemoglobin Crit Value Called To Crit Value Called By Crit Value Read Back Blood Gas Notified Time Sodium Potassium Chloride Carbon Dioxide Anion Gap BUN Creatinine Est GFR ( Amer) Est GFR (Non-Af Amer) POC Glucose (mg/dL) Random Glucose Hemoglobin A1c 8.2 H Serum Osmolality Calcium Total Bilirubin AST ALT Alkaline Phosphatase Troponin I Total Protein Albumin Globulin Albumin/Globulin Ratio Triglycerides Cholesterol LDL Cholesterol Direct HDL Cholesterol Urine Color Urine Clarity Urine pH Ur Specific [place] Urine Protein Urine Glucose (UA) Urine Ketones Urine Blood Urine Nitrate Urine Bilirubin Urine Urobilinogen Ur Leukocyte Esterase Urine RBC (Auto) Urine Microscopic WBC Ur Squamous Epith Cells Urine Bacteria Hyaline Casts Urine Osmolality Ur Random Creatinine Ur Random Sodium Ur Random Potassium Blood Type O POSITIVE Blood Type Confirm Antibody Screen Negative BBK History Checked No verified bt 11/23/17 11/23/17 11/23/17 01:09 01:09 01:27 WBC RBC Hgb Hct MCV MCH MCHC RDW Plt Count MPV Neut % (Auto) Lymph % (Auto) Mcleod % (Auto) Eos % (Auto) Baso % (Auto) Neut # (Auto) Lymph # (Auto) Mcleod # (Auto) Eos # (Auto) Baso # (Auto) Neutrophils % (Manual) Lymphocytes % (Manual) Reactive Lymphs % Monocytes % (Manual) Platelet Estimate Anisocytosis (manual) Tear Drop Cells PT INR APTT pO2 39 ABG Carboxyhemoglobin 2.2 H POC ABG HHb (Measured) 37.8 H ABG Methemoglobin 2.5 VBG pH 7.07 L* VBG pCO2 79 H* VBG HCO3 15.6 VBG O2 Sat (Calc) 60.3 VBG Base Excess -9.9 L VBG Hgb O2 Saturation 57.5 L Hemoglobin 19.6 H Crit Value Called To Dr lottie gracia Crit Value Called By Frandy Crit Value Read Back Y Blood Gas Notified Time 114 Sodium Potassium Chloride Carbon Dioxide Anion Gap BUN Creatinine Est GFR ( Amer) Est GFR (Non-Af Amer) POC Glucose (mg/dL) Random Glucose Hemoglobin A1c Serum Osmolality Calcium Total Bilirubin AST ALT Alkaline Phosphatase Troponin I Total Protein Albumin Globulin Albumin/Globulin Ratio Triglycerides Cholesterol LDL Cholesterol Direct HDL Cholesterol Urine Color Opal Urine Clarity Slighty-cloudy Urine pH 5.0 Ur Specific [place] 1.025 Urine Protein 30 Urine Glucose (UA) Neg Urine Ketones Negative Urine Blood Small Urine Nitrate Negative Urine Bilirubin Negative Urine Urobilinogen 2.0 Ur Leukocyte Esterase Neg Urine RBC (Auto) 2 Urine Microscopic WBC 3 Ur Squamous Epith Cells < 1 Urine Bacteria Rare Hyaline Casts 11-20 H Urine Osmolality 725 Ur Random Creatinine 314.5 Ur Random Sodium 10 Ur Random Potassium 67.5 Blood Type Blood Type Confirm Antibody Screen BBK History Checked 11/23/17 11/23/17 11/23/17 02:37 05:10 05:10 WBC 12.3 H RBC 5.59 Hgb 16.9 D Hct 52.3 H MCV 93.5 MCH 30.1 MCHC 32.2 L RDW 13.9 Plt Count 135 MPV Neut % (Auto) Lymph % (Auto) Mcleod % (Auto) Eos % (Auto) Baso % (Auto) Neut # (Auto) Lymph # (Auto) Mcleod # (Auto) Eos # (Auto) Baso # (Auto) Neutrophils % (Manual) Lymphocytes % (Manual) Reactive Lymphs % Monocytes % (Manual) Platelet Estimate Anisocytosis (manual) Tear Drop Cells PT INR APTT pO2 ABG Carboxyhemoglobin POC ABG HHb (Measured) ABG Methemoglobin VBG pH VBG pCO2 VBG HCO3 VBG O2 Sat (Calc) VBG Base Excess VBG Hgb O2 Saturation Hemoglobin Crit Value Called To Crit Value Called By Crit Value Read Back Blood Gas Notified Time Sodium Potassium Chloride Carbon Dioxide Anion Gap BUN Creatinine Est GFR ( Amer) Est GFR (Non-Af Amer) POC Glucose (mg/dL) 211 H Random Glucose Hemoglobin A1c Serum Osmolality 349 H Calcium Total Bilirubin AST ALT Alkaline Phosphatase Troponin I Total Protein Albumin Globulin Albumin/Globulin Ratio Triglycerides Cholesterol LDL Cholesterol Direct HDL Cholesterol Urine Color Urine Clarity Urine pH Ur Specific [place] Urine Protein Urine Glucose (UA) Urine Ketones Urine Blood Urine Nitrate Urine Bilirubin Urine Urobilinogen Ur Leukocyte Esterase Urine RBC (Auto) Urine Microscopic WBC Ur Squamous Epith Cells Urine Bacteria Hyaline Casts Urine Osmolality Ur Random Creatinine Ur Random Sodium Ur Random Potassium Blood Type Blood Type Confirm Antibody Screen BBK History Checked 11/23/17 11/23/17 11/23/17 05:10 05:15 06:30 WBC RBC Hgb Hct MCV MCH MCHC RDW Plt Count MPV Neut % (Auto) Lymph % (Auto) Mcleod % (Auto) Eos % (Auto) Baso % (Auto) Neut # (Auto) Lymph # (Auto) Mcleod # (Auto) Eos # (Auto) Baso # (Auto) Neutrophils % (Manual) Lymphocytes % (Manual) Reactive Lymphs % Monocytes % (Manual) Platelet Estimate Anisocytosis (manual) Tear Drop Cells PT INR APTT pO2 ABG Carboxyhemoglobin POC ABG HHb (Measured) ABG Methemoglobin VBG pH VBG pCO2 VBG HCO3 VBG O2 Sat (Calc) VBG Base Excess VBG Hgb O2 Saturation Hemoglobin Crit Value Called To Crit Value Called By Crit Value Read Back Blood Gas Notified Time Sodium 153 H Potassium 3.2 L Chloride 107 Carbon Dioxide 25 Anion Gap 24 H BUN 90 H Creatinine 2.1 H Est GFR ( Amer) 37 Est GFR (Non-Af Amer) 31 POC Glucose (mg/dL) Random Glucose 198 H Hemoglobin A1c Serum Osmolality Calcium 8.1 L Total Bilirubin AST ALT Alkaline Phosphatase Troponin I 0.0960 Total Protein Albumin Globulin Albumin/Globulin Ratio Triglycerides Cholesterol LDL Cholesterol Direct HDL Cholesterol Urine Color Urine Clarity Urine pH Ur Specific [place] Urine Protein Urine Glucose (UA) Urine Ketones Urine Blood Urine Nitrate Urine Bilirubin Urine Urobilinogen Ur Leukocyte Esterase Urine RBC (Auto) Urine Microscopic WBC Ur Squamous Epith Cells Urine Bacteria Hyaline Casts Urine Osmolality Ur Random Creatinine Ur Random Sodium Ur Random Potassium Blood Type Blood Type Confirm O POSITIVE Antibody Screen BBK History Checked 11/23/17 11/23/17 06:47 11:59 WBC RBC Hgb Hct MCV MCH MCHC RDW Plt Count MPV Neut % (Auto) Lymph % (Auto) Mcleod % (Auto) Eos % (Auto) Baso % (Auto) Neut # (Auto) Lymph # (Auto) Mcleod # (Auto) Eos # (Auto) Baso # (Auto) Neutrophils % (Manual) Lymphocytes % (Manual) Reactive Lymphs % Monocytes % (Manual) Platelet Estimate Anisocytosis (manual) Tear Drop Cells PT INR APTT pO2 ABG Carboxyhemoglobin POC ABG HHb (Measured) ABG Methemoglobin VBG pH VBG pCO2 VBG HCO3 VBG O2 Sat (Calc) VBG Base Excess VBG Hgb O2 Saturation Hemoglobin Crit Value Called To Crit Value Called By Crit Value Read Back Blood Gas Notified Time Sodium Potassium Chloride Carbon Dioxide Anion Gap BUN Creatinine Est GFR ( Amer) Est GFR (Non-Af Amer) POC Glucose (mg/dL) 195 H 191 H Random Glucose Hemoglobin A1c Serum Osmolality Calcium Total Bilirubin AST ALT Alkaline Phosphatase Troponin I Total Protein Albumin Globulin Albumin/Globulin Ratio Triglycerides Cholesterol LDL Cholesterol Direct HDL Cholesterol Urine Color Urine Clarity Urine pH Ur Specific [place] Urine Protein Urine Glucose (UA) Urine Ketones Urine Blood Urine Nitrate Urine Bilirubin Urine Urobilinogen Ur Leukocyte Esterase Urine RBC (Auto) Urine Microscopic WBC Ur Squamous Epith Cells Urine Bacteria Hyaline Casts Urine Osmolality Ur Random Creatinine Ur Random Sodium Ur Random Potassium Blood Type Blood Type Confirm Antibody Screen BBK History Checked Assessment & Plan - Assessment and Plan (Free Text) Assessment: 82 yr old male with acute stroke left medial temporal lobe, small which most likely is contributing to metabolic encephalopathy from hypernatremia and acute renal failure. There were no seizures noted, and I would not start antiepileptic medications. PLan: 1. ECHO 2. Start aspirin 325 mg po daily. 3. correct sodium slowly 4. would not start aeds at this time. Thank you. Dr. Rusty MD
[2017-11-24] MEDS: Sodium Chloride 0.45% 1,000 ML IV SCH (00:11)
[2017-11-24] MEDS: Insulin Lispro (humaLOG) 100 Units/ml Inj SC SCH ×3 (05:31→17:11)
[2017-11-24 06:16] LABS: HEMOGLOBIN 16.5 g/dL (12.0-18.0); MEAN CORPUSCULAR HGB CONC 32.3 g/dL (33.0-37.0); RBC 5.5 Mil/uL (4.40-5.90); RED CELL DISTRIBUTION WIDTH 13.8 % (11.5-14.5); WHITE BLOOD COUNT 9.4 K/uL (4.8-10.8)
[2017-11-24 06:35] LABS: CALCIUM 8.2 mg/dL (8.4-10.2)
--- NOTE | 2017-11-24 08:36 | CP.CCUPN ---
CCU Subjective - Physician Review Events Since Last Encounter (Free Text): 11/24/17 08:32 Patient aqwake, lethergic, no distress, no fever, no vomiting, events reviewed CCU Objective - Vital Signs / Intake & Output Vital Signs (Last 4 hours): Vital Signs Temp Pulse Resp BP Pulse Ox 11/24/17 08:00 98.1 F 91 H 18 128/77 94 L 11/24/17 06:00 95 H 16 120/75 95 11/24/17 05:00 91 H 10 L 115/71 98 Intake and Output (Last 8hrs): Intake & Output 11/23/17 11/24/17 11/24/17 22:59 06:59 14:59 Intake Total 700 900 Output Total 150 800 Balance 550 100 Intake: IV 700 900 Oral 0 0 Output: Urine 150 800 Urethral (Bro) 150 800 Other: # Bowel Movements 0 - Physical Exam Head: Positive for: Atraumatic, Normocephalic Pupils: Positive for: PERRL Conjunctiva: Positive for: Normal Mouth: Positive for: Dry Nose (External): Positive for: Atraumatic Neck: Positive for: Normal Range of Motion Respiratory/Chest: Positive for: Clear to Auscultation Cardiovascular: Positive for: Regular Rate and Rhythm Abdomen: Positive for: Normal Bowel Sounds Upper Extremity: Positive for: Normal Inspection Lower Extremity: Positive for: Normal Inspection Psychiatric: Positive for: Other (awake, lethergic) - Medications Active Medications: Active Medications Generic Name Dose Route Start Last Admin Trade Name Freq PRN Reason Stop Dose Admin Aspirin 300 mg 11/23/17 09:00 11/23/17 09:29 Aspirin Supp [place] 300 mg DAILY ALANNAH Administration Heparin Sodium (Porcine) 5,000 units 11/23/17 01:00 11/24/17 00:10 Heparin SC 5,000 units Q8 ALANNAH Administration Protocol Sodium Chloride 1,000 mls @ 100 mls/hr 11/23/17 12:30 11/24/17 00:11 Sodium Chloride 0.45% IV 11/24/17 12:20 100 mls/hr .Q10H ALANNAH Administration Insulin Human Lispro 0 units 11/23/17 06:45 11/24/17 05:31 Humalog SC 1 unit 0000,0600,1200,1800 ALANNAH Administration Protocol - Patient Studies Lab Studies: Microbiology Studies 11/23/17 06:03 Blood Culture - Preliminary Blood NO GROWTH AFTER 24 HOURS 11/23/17 06:03 Blood Culture - Preliminary Blood NO GROWTH AFTER 24 HOURS Lab Studies 11/24/17 11/24/17 11/24/17 Range/Units 05:30 05:30 05:27 WBC 9.4 (4.8-10.8) K/uL RBC 5.50 (4.40-5.90) Mil/uL Hgb 16.5 (12.0-18.0) g/dL Hct 51.2 H (35.0-51.0) % MCV 93.0 (80.0-94.0) fl MCH 30.0 (27.0-31.0) pg MCHC 32.3 L (33.0-37.0) g/dL RDW 13.8 (11.5-14.5) % Plt Count 119 L (130-400) K/uL Sodium 161 H* (132-148) mmol/l Potassium 3.6 (3.6-5.0) MMOL/L Chloride 115 H (98-107) mmol/L Carbon Dioxide 26 (22-30) mmol/L Anion Gap 24 H (10-20) BUN 79 H (9-20) mg/dl Creatinine 1.6 H (0.8-1.5) mg/dl Est GFR ( Amer) 51 Est GFR (Non-Af Amer) 42 POC Glucose (mg/dL) 173 H (65-110) mg/dL Random Glucose 197 H (75-110) mg/dL Hemoglobin A1c (4.2-6.5) % Calcium 8.2 L (8.4-10.2) mg/dL Triglycerides 207 H (0-149) mg/DL Cholesterol 168 (0-199) mg/dL LDL Cholesterol Direct 98 (0-129) mg/dL HDL Cholesterol 34 (30-70) MG/DL 11/23/17 11/23/17 11/23/17 Range/Units 23:13 16:58 11:59 WBC (4.8-10.8) K/uL RBC (4.40-5.90) Mil/uL Hgb (12.0-18.0) g/dL Hct (35.0-51.0) % MCV (80.0-94.0) fl MCH (27.0-31.0) pg MCHC (33.0-37.0) g/dL RDW (11.5-14.5) % Plt Count (130-400) K/uL Sodium (132-148) mmol/l Potassium (3.6-5.0) MMOL/L Chloride (98-107) mmol/L Carbon Dioxide (22-30) mmol/L Anion Gap (10-20) BUN (9-20) mg/dl Creatinine (0.8-1.5) mg/dl Est GFR ( Amer) Est GFR (Non-Af Amer) POC Glucose (mg/dL) 173 H 175 H 191 H (65-110) mg/dL Random Glucose (75-110) mg/dL Hemoglobin A1c (4.2-6.5) % Calcium (8.4-10.2) mg/dL Triglycerides (0-149) mg/DL Cholesterol (0-199) mg/dL LDL Cholesterol Direct (0-129) mg/dL HDL Cholesterol (30-70) MG/DL 11/23/17 Range/Units 01:09 WBC (4.8-10.8) K/uL RBC (4.40-5.90) Mil/uL Hgb (12.0-18.0) g/dL Hct (35.0-51.0) % MCV (80.0-94.0) fl MCH (27.0-31.0) pg MCHC (33.0-37.0) g/dL RDW (11.5-14.5) % Plt Count (130-400) K/uL Sodium (132-148) mmol/l Potassium (3.6-5.0) MMOL/L Chloride (98-107) mmol/L Carbon Dioxide (22-30) mmol/L Anion Gap (10-20) BUN (9-20) mg/dl Creatinine (0.8-1.5) mg/dl Est GFR ( Amer) Est GFR (Non-Af Amer) POC Glucose (mg/dL) (65-110) mg/dL Random Glucose (75-110) mg/dL Hemoglobin A1c 8.2 H (4.2-6.5) % Calcium (8.4-10.2) mg/dL Triglycerides (0-149) mg/DL Cholesterol (0-199) mg/dL LDL Cholesterol Direct (0-129) mg/dL HDL Cholesterol (30-70) MG/DL Laboratory Results - last 24 hr 11/23/17 11/23/17 11/23/17 01:09 11:59 16:58 WBC RBC Hgb Hct MCV MCH MCHC RDW Plt Count Sodium Potassium Chloride Carbon Dioxide Anion Gap BUN Creatinine Est GFR ( Amer) Est GFR (Non-Af Amer) POC Glucose (mg/dL) 191 H 175 H Random Glucose Hemoglobin A1c 8.2 H Calcium Triglycerides Cholesterol LDL Cholesterol Direct HDL Cholesterol 11/23/17 11/24/17 11/24/17 23:13 05:27 05:30 WBC 9.4 RBC 5.50 Hgb 16.5 Hct 51.2 H MCV 93.0 MCH 30.0 MCHC 32.3 L RDW 13.8 Plt Count 119 L Sodium Potassium Chloride Carbon Dioxide Anion Gap BUN Creatinine Est GFR ( Amer) Est GFR (Non-Af Amer) POC Glucose (mg/dL) 173 H 173 H Random Glucose Hemoglobin A1c Calcium Triglycerides Cholesterol LDL Cholesterol Direct HDL Cholesterol 11/24/17 05:30 WBC RBC Hgb Hct MCV MCH MCHC RDW Plt Count Sodium 161 H* Potassium 3.6 Chloride 115 H Carbon Dioxide 26 Anion Gap 24 H BUN 79 H Creatinine 1.6 H Est GFR ( Amer) 51 Est GFR (Non-Af Amer) 42 POC Glucose (mg/dL) Random Glucose 197 H Hemoglobin A1c Calcium 8.2 L Triglycerides 207 H Cholesterol 168 LDL Cholesterol Direct 98 HDL Cholesterol 34 Fingerstick Blood Sugar Results: 173 Critical Care Progress Note - Nutrition Nutrition: Nutrition Category Date Time Status NPO Diet [DIET] Diets 11/23/17 Breakfast Active Assessment/Plan - Assessment and Plan (Free Text) Assessment: A/P Altered mental status, hypernatremia, CVA, acute renal failure, DM - IV fluid - Follow up labs - Neurology follow up - Renal follow up - Continue meds
--- NOTE | 2017-11-24 09:21 | CP.PCM.PN ---
Subjective - Date & Time of Evaluation Date of Evaluation: 11/24/17 Time of Evaluation: 07:00 - Subjective Subjective: Pt in bed, lethargic, able to open eyes. Moves RUE and lower extremities Objective - Vital Signs/Intake and Output Vital Signs (last 24 hours): Temp Pulse Resp BP Pulse Ox 98.1 F 91 H 18 128/77 94 L 11/24/17 08:00 11/24/17 08:00 11/24/17 08:00 11/24/17 08:00 11/24/17 08:00 Intake and Output: 11/24/17 11/24/17 06:59 18:59 Intake Total 1200 Output Total 800 Balance 400 - Medications Medications: Current Medications Aspirin (Aspirin Supp) 300 mg [place] DAILY [facility] Last Admin: 11/24/17 09:00 Dose: 300 mg Heparin Sodium (Porcine) (Heparin) 5,000 units SC Q8 ALANNAH PRN Reason: Protocol Last Admin: 11/24/17 08:58 Dose: 5,000 units Sodium Chloride (Sodium Chloride 0.45%) 1,000 mls @ 100 mls/hr IV .Q10H ALANNAH Stop: 11/24/17 12:20 Last Admin: 11/24/17 00:11 Dose: 100 mls/hr Insulin Human Lispro (Humalog) 0 units SC 0000,0600,1200,1800 ALANNAH PRN Reason: Protocol Last Admin: 11/24/17 05:31 Dose: 1 unit - Labs Labs: 11/24/17 05:30 11/24/17 05:30 PT 12.8 Seconds (9.8-13.1) 11/23/17 01:09 INR 1.2 (0.9-1.2) 11/23/17 01:09 APTT 31.3 Seconds (25.6-37.1) 11/23/17 01:09 - Constitutional Appears: Well, No Acute Distress - Head Exam Head Exam: ATRAUMATIC - Respiratory Exam Respiratory Exam: Clear to Ausculation Bilateral, NORMAL BREATHING PATTERN - Cardiovascular Exam Cardiovascular Exam: REGULAR RHYTHM, +S1, +S2 - GI/Abdominal Exam GI & Abdominal Exam: Soft, Normal Bowel Sounds - Extremities Exam Additional comments: left sided weakness and hemiplegia - Neurological Exam Neurological Exam: Altered - Skin Skin Exam: Normal Color, Warm Assessment and Plan (1) Altered mental status Assessment & Plan: Metabolic due to hypernatremia and Uremia Vs R/O CVA Less Likely Monitor in ICU Neuro checks Neuro on board F/u MRI brain Correct hypernatremia slow IVF Status: Acute (2) Hypokalemia Assessment & Plan: Replace potassium Status: Acute (3) Dementia Status: Chronic (4) Acute renal failure Assessment & Plan: IVF Status: Acute (5) DM2 (diabetes mellitus, type 2) Assessment & Plan: Insulin ss Status: Chronic (6) History of CVA with residual deficit Assessment & Plan: left sided hemiplegia, chronic Heparin ASA daily Status: Chronic
--- NOTE | 2017-11-24 10:48 | CARD ---
APPROVED REPORT EXAM: Two-dimensional and M-mode echocardiogram with Doppler and color Doppler. Other Information Quality : PoorRhythm : NSR Technically limited study due to NO ECHOcardiographic Window INDICATION Altered Mental Status Mitral Valve E/A ratio0.0 TDI E/Lateral E'0.0E/Medial E'0.0 LEFT VENTRICLE The left ventricle is normal size. Not Visualized The left ventricular function is normal. The left ventricular ejection fraction is within the normal range. There is normal LV segmental wall motion. Not Visualized RIGHT VENTRICLE Not Visualized Not Visualized ATRIA Not Visualized Not Visualized AORTIC VALVE Not Visualized Not Visualized Not Visualized MITRAL VALVE Not Visualized Not Visualized Not Visualized TRICUSPID VALVE Not Visualized Not Visualized Not Visualized PULMONIC VALVE Not Visualized Not Visualized GREAT VESSELS Not Visualized Not Visualized PERICARDIAL EFFUSION Not Visualized <Conclusion> Extremely poor/limited study The left ventricle is normal size. The left ventricular function is normal. The left ventricular ejection fraction is within the normal range.
--- NOTE | 2017-11-24 11:35 | CARD ---
APPROVED REPORT EKG Measurement Heart [id number] <Conclusion> Sinus tachycardia with premature atrial complexes Inferior infarct, age undetermined ST & T wave abnormality, consider lateral ischemia Abnormal ECG
[2017-11-24 21:55] LABS: BLOOD UREA NITROGEN 61 mg/dl (9-20); CALCIUM 8.4 mg/dL (8.4-10.2); GFR AFRICAN-AMERICAN > 60; GFR NON-AFRICAN AMERICAN 53
[2017-11-25] MEDS: Insulin Lispro (humaLOG) 100 Units/ml Inj SC SCH ×4 (00:11→22:26)
[2017-11-25 05:01] LABS: CALCIUM 8.3 mg/dL (8.4-10.2); GFR AFRICAN-AMERICAN > 60; GFR NON-AFRICAN AMERICAN 53
[2017-11-25 05:16] LABS: BLOOD UREA NITROGEN 55 mg/dl (9-20)
--- NOTE | 2017-11-25 07:58 | CP.CCUPN ---
CCU Subjective - Physician Review Events Since Last Encounter (Free Text): Patient awake, lethargic, no distress, no fever, no vomiting, events reviewed CCU Objective - Vital Signs / Intake & Output Vital Signs (Last 4 hours): Vital Signs Temp Pulse Resp BP Pulse Ox 11/25/17 06:00 96 H 17 113/75 96 11/25/17 04:00 98.9 F 88 19 120/68 97 Intake and Output (Last 8hrs): Intake & Output 11/24/17 11/25/17 11/25/17 22:59 06:59 14:59 Intake Total 600 875 Output Total 600 550 Balance 0 325 Intake: IV 600 875 Output: Urine 600 550 Urethral (Bro) 600 550 - Physical Exam Head: Positive for: Atraumatic, Normocephalic Pupils: Positive for: PERRL Conjunctiva: Positive for: Normal Mouth: Positive for: Dry Nose (External): Positive for: Atraumatic Neck: Positive for: Normal Range of Motion Respiratory/Chest: Positive for: Clear to Auscultation Cardiovascular: Positive for: Regular Rate and Rhythm Abdomen: Positive for: Normal Bowel Sounds Upper Extremity: Positive for: Normal Inspection Lower Extremity: Positive for: Normal Inspection Psychiatric: Positive for: Other (awake, lethergic) - Medications Active Medications: Active Medications Generic Name Dose Route Start Last Admin Trade Name Freq PRN Reason Stop Dose Admin Aspirin 300 mg 11/23/17 09:00 11/24/17 09:00 Aspirin Supp [place] 300 mg DAILY ALANNAH Administration Heparin Sodium (Porcine) 5,000 units 11/23/17 01:00 11/25/17 00:11 Heparin SC 5,000 units Q8 ALANNAH Administration Protocol Dextrose 1,000 mls @ 75 mls/hr 11/25/17 05:23 11/25/17 05:56 Dextrose 5% In Water 1000 Ml IV 11/25/17 22:06 75 mls/hr .[id number] ALANNAH Administration Insulin Human Lispro 0 units 11/23/17 06:45 11/25/17 05:13 Humalog SC 3 unit 0000,0600,1200,1800 ALANNAH Administration Protocol - Patient Studies Lab Studies: Microbiology Studies 11/23/17 06:03 Blood Culture - Preliminary Blood NO GROWTH AFTER 48 HOURS 11/23/17 06:03 Blood Culture - Preliminary Blood NO GROWTH AFTER 48 HOURS 11/23/17 06:03 Urine Culture - Final Urine No Growth (<1,000 CFU/ML) 11/23/17 06:16 MRSA Culture (Admit) - Final Nose MRSA NOT DETECTED Lab Studies 11/25/17 11/25/17 11/25/17 Range/Units 05:13 04:50 00:08 Sodium 156 H (132-148) mmol/l Potassium 4.7 (3.6-5.0) MMOL/L Chloride 116 H (98-107) mmol/L Carbon Dioxide 24 (22-30) mmol/L Anion Gap 21 H (10-20) BUN 55 H (9-20) mg/dl Creatinine 1.3 (0.8-1.5) mg/dl Est GFR ( Amer) > 60 Est GFR (Non-Af Amer) 53 POC Glucose (mg/dL) 257 H 190 H (65-110) mg/dL Random Glucose 281 H (75-110) mg/dL Calcium 8.3 L (8.4-10.2) mg/dL 11/24/17 11/24/17 11/24/17 Range/Units 21:30 16:08 12:24 Sodium 160 H* (132-148) mmol/l Potassium 4.1 (3.6-5.0) MMOL/L Chloride 116 H (98-107) mmol/L Carbon Dioxide 26 (22-30) mmol/L Anion Gap 22 H (10-20) BUN 61 H (9-20) mg/dl Creatinine 1.3 (0.8-1.5) mg/dl Est GFR ( Amer) > 60 Est GFR (Non-Af Amer) 53 POC Glucose (mg/dL) 185 H 203 H (65-110) mg/dL Random Glucose 193 H (75-110) mg/dL Calcium 8.4 (8.4-10.2) mg/dL Laboratory Results - last 24 hr 11/24/17 11/24/17 11/24/17 12:24 16:08 21:30 Sodium 160 H* Potassium 4.1 Chloride 116 H Carbon Dioxide 26 Anion Gap 22 H BUN 61 H Creatinine 1.3 Est GFR ( Amer) > 60 Est GFR (Non-Af Amer) 53 POC Glucose (mg/dL) 203 H 185 H Random Glucose 193 H Calcium 8.4 04/11/25/17 11/25/17 00:08 04:50 05:13 Sodium 156 H Potassium 4.7 Chloride 116 H Carbon Dioxide 24 Anion Gap 21 H BUN 55 H Creatinine 1.3 Est GFR ( Amer) > 60 Est GFR (Non-Af Amer) 53 POC Glucose (mg/dL) 190 H 257 H Random Glucose 281 H Calcium 8.3 L Fingerstick Blood Sugar Results: 257 Critical Care Progress Note - Nutrition Nutrition: Nutrition Category Date Time Status NPO Diet [DIET] Diets 11/23/17 Breakfast Active Assessment/Plan - Assessment and Plan (Free Text) Assessment: A/P Altered mental status, hypernatremia, CVA, acute renal failure, DM - IV fluid - Follow up labs - Neurology follow up - Renal follow up - Continue meds
[2017-11-25 08:36] LABS: HEMOGLOBIN 16.4 g/dL (12.0-18.0); MEAN CELL VOLUME 95.3 fl (80.0-94.0); MEAN CORPUSCULAR HEMOGLOBIN 30.4 pg (27.0-31.0); MEAN CORPUSCULAR HGB CONC 31.9 g/dL (33.0-37.0); RBC 5.38 Mil/uL (4.40-5.90); WHITE BLOOD COUNT 10.9 K/uL (4.8-10.8)
--- NOTE | 2017-11-25 08:40 | CP.PCM.PN ---
Subjective - Date & Time of Evaluation Date of Evaluation: 11/25/17 Time of Evaluation: 08:38 - Subjective Subjective: Mr. Cheatham was seen and examined at the bedside in ICU. He is non-verbal, opens his eyes spontaneously and withdraws any extremity as a response to noxious stimuli. Pupils are sluggish to react to light accommodation. He has left side flaccidity from his previous CVA. The patient is tolerating IVF. There was no untoward events overnight. Objective - Vital Signs/Intake and Output Vital Signs (last 24 hours): Temp Pulse Resp BP Pulse Ox 100.1 F H 86 23 100/66 95 11/25/17 08:00 11/25/17 08:00 11/25/17 08:00 11/25/17 08:00 11/25/17 08:00 Intake and Output: 11/25/17 11/25/17 06:59 18:59 Intake Total 1175 Output Total 550 Balance 625 - Medications Medications: Current Medications Acetaminophen (Tylenol 650 Mg Supp) 650 mg [place] Q6 PRN PRN Reason: temp >100.2 Aspirin (Aspirin Supp) 300 mg [place] DAILY [facility] Last Admin: 11/24/17 09:00 Dose: 300 mg Heparin Sodium (Porcine) (Heparin) 5,000 units SC Q8 ALANNAH PRN Reason: Protocol Last Admin: 11/25/17 00:11 Dose: 5,000 units Dextrose (Dextrose 5% In Water 1000 Ml) 1,000 mls @ 75 mls/hr IV .[id number] [facility] Stop: 11/25/17 22:06 Last Admin: 11/25/17 05:56 Dose: 75 mls/hr Insulin Human Lispro (Humalog) 0 units SC 0000,0600,1200,1800 ALANNAH PRN Reason: Protocol Last Admin: 11/25/17 05:13 Dose: 3 unit - Labs Labs: 11/25/17 05:20 11/25/17 04:50 PT 12.8 Seconds (9.8-13.1) 11/23/17 01:09 INR 1.2 (0.9-1.2) 11/23/17 01:09 APTT 31.3 Seconds (25.6-37.1) 11/23/17 01:09 - Constitutional Appears: No Acute Distress - Head Exam Head Exam: NORMAL INSPECTION - Eye Exam Pupil Exam: Miosis, PERRL - Neurological Exam Neuro motor strength exam: Left Upper Extremity: 0, Right Upper Extremity: 2/1, Left Lower Extremity: 2/1, Right Lower Extremity: 2/1 Additional comments: He is non- verbal, unable to participate during assessment.Patient opens his eyes spontaneously and withdraws any extremity as a response to noxious stimuli. Pupils are sluggish to react to light accommodation Assessment and Plan (1) Hypernatremia Assessment & Plan: Case discussed with Dr. Ojeda, continue all current medical regimen. Recommend treating electrolyte abnormality. Status: Acute
--- NOTE | 2017-11-25 21:51 | CP.PCM.PN ---
Subjective - Date & Time of Evaluation Date of Evaluation: 11/25/17 Time of Evaluation: 12:00 - Subjective Subjective: In bed, lethargic, no acute distress noted. Opens eyes, no overnight events Objective - Vital Signs/Intake and Output Vital Signs (last 24 hours): Temp Pulse Resp BP Pulse Ox 98.6 F 80 19 96/69 L 94 L 11/25/17 16:00 11/25/17 19:25 11/25/17 19:25 11/25/17 19:25 11/25/17 19:25 Intake and Output: 11/25/17 11/26/17 18:59 06:59 Intake Total 900 75 Balance 900 75 - Medications Medications: Current Medications Acetaminophen (Tylenol 650 Mg Supp) 650 mg [place] Q6 PRN PRN Reason: temp >100.2 Last Admin: 11/25/17 09:11 Dose: 650 mg Aspirin (Aspirin Supp) 300 mg [place] DAILY [facility] Last Admin: 11/25/17 09:12 Dose: 300 mg Heparin Sodium (Porcine) (Heparin) 5,000 units SC Q8 ALANNAH PRN Reason: Protocol Last Admin: 11/25/17 16:34 Dose: 5,000 units Dextrose (Dextrose 5% In Water 1000 Ml) 1,000 mls @ 75 mls/hr IV .[id number] ALANNAH Stop: 11/25/17 22:06 Last Admin: 11/25/17 19:27 Dose: 75 mls/hr Insulin Human Lispro (Humalog) 0 units SC 0000,0600,1200,1800 ALANNAH PRN Reason: Protocol Last Admin: 11/25/17 13:00 Dose: 2 unit - Labs Labs: 11/25/17 05:20 11/25/17 04:50 PT 12.8 Seconds (9.8-13.1) 11/23/17 01:09 INR 1.2 (0.9-1.2) 11/23/17 01:09 APTT 31.3 Seconds (25.6-37.1) 11/23/17 01:09 - Constitutional Appears: Well, No Acute Distress - Head Exam Head Exam: ATRAUMATIC - Respiratory Exam Respiratory Exam: Clear to Ausculation Bilateral, NORMAL BREATHING PATTERN - Cardiovascular Exam Cardiovascular Exam: REGULAR RHYTHM, +S1, +S2 - GI/Abdominal Exam GI & Abdominal Exam: Normal Bowel Sounds - Extremities Exam Additional comments: left sided weakness - Neurological Exam Neurological Exam: Altered - Skin Skin Exam: Normal Color, Warm Assessment and Plan (1) Altered mental status Assessment & Plan: Metabolic due to Hypernatremia and Uremia Monitor in ICU Neuro checks Neuro consult appreciated correct hypernatremia IVF Status: Acute (2) Hypokalemia Assessment & Plan: Potassium has corrected Status: Acute (3) Dementia Status: Chronic (4) Acute renal failure Assessment & Plan: Imrpoving continue IVF Status: Acute (5) DM2 (diabetes mellitus, type 2) Assessment & Plan: continue insulin ss Status: Chronic (6) History of CVA with residual deficit Assessment & Plan: On heparin ASA PT/OT Status: Chronic
[2017-11-26 06:05] LABS: HEMOGLOBIN 14.1 g/dL (12.0-18.0); MEAN CELL VOLUME 93.4 fl (80.0-94.0); MEAN CORPUSCULAR HEMOGLOBIN 30.2 pg (27.0-31.0); MEAN CORPUSCULAR HGB CONC 32.3 g/dL (33.0-37.0); RBC 4.66 Mil/uL (4.40-5.90); RED CELL DISTRIBUTION WIDTH 13.4 % (11.5-14.5); WHITE BLOOD COUNT 12.2 K/uL (4.8-10.8)
[2017-11-26] MEDS: Insulin Lispro (humaLOG) 100 Units/ml Inj SC SCH ×6 (06:29→23:54)
[2017-11-26 06:55] LABS: BLOOD UREA NITROGEN 42 mg/dl (9-20); CALCIUM 8.2 mg/dL (8.4-10.2); GFR AFRICAN-AMERICAN > 60; GFR NON-AFRICAN AMERICAN 58
--- NOTE | 2017-11-26 09:39 | CP.PCM.PN ---
Subjective - Date & Time of Evaluation Date of Evaluation: 11/26/17 Time of Evaluation: 09:37 - Subjective Subjective: Mr. Fowler was seen and examined at the bedside. He attempts to open his eyes with both verbal and noxious stimuli. He is able to move his right upper extremity and move/ withdraw his bilateral lower extremities in response to noxious stimuli. His left upper extremity remains flaccid. He tries to mumble words but it is incomprehensible. He is able to follow one command squeezing his right hand and raise it up, but not raising from elbow to shoulder. Latest Na-154 There was no untoward events overnight. Objective - Vital Signs/Intake and Output Vital Signs (last 24 hours): Temp Pulse Resp BP Pulse Ox 99 F 85 12 107/70 95 11/26/17 08:00 11/26/17 08:00 11/26/17 08:00 11/26/17 08:00 11/26/17 08:00 Intake and Output: 11/26/17 11/26/17 06:59 18:59 Intake Total 900 Output Total 400 Balance 500 - Medications Medications: Current Medications Acetaminophen (Tylenol 650 Mg Supp) 650 mg [place] Q6 PRN PRN Reason: temp >100.2 Last Admin: 11/25/17 09:11 Dose: 650 mg Aspirin (Aspirin Supp) 300 mg [place] DAILY [facility] Last Admin: 11/26/17 09:20 Dose: 300 mg Heparin Sodium (Porcine) (Heparin) 5,000 units SC Q8 ALANNAH PRN Reason: Protocol Last Admin: 11/26/17 09:18 Dose: 5,000 units Insulin Human Lispro (Humalog) 0 units SC 0000,0600,1200,1800 ALANNAH PRN Reason: Protocol Last Admin: 11/26/17 06:31 Dose: 2 unit - Labs Labs: 11/26/17 05:00 11/26/17 05:00 PT 12.8 Seconds (9.8-13.1) 11/23/17 01:09 INR 1.2 (0.9-1.2) 11/23/17 01:09 APTT 31.3 Seconds (25.6-37.1) 11/23/17 01:09 - Constitutional Appears: No Acute Distress - Head Exam Head Exam: NORMAL INSPECTION - Neurological Exam Neurological Exam: Awake Neuro motor strength exam: Left Upper Extremity: 0, Right Upper Extremity: 4, Left Lower Extremity: 2/1, Right Lower Extremity: 3 Additional comments: Neurological unchanged from previous examination. Assessment and Plan (1) Acute metabolic encephalopathy Assessment & Plan: Case discussed with Dr. Melton, continue medical regimen for hypernatremia, treat any other electrolyte abnormalities. If patient mental status decline to repeat CT scan of the head without contrast. Status: Acute
--- NOTE | 2017-11-26 15:52 | CP.CCUPN ---
CCU Subjective - Physician Review Events Since Last Encounter (Free Text): 11/26/17 15:55 The patient was Seen/interviewed and examined by me at the bedside during ICU round, Medical records reviewed and Management issues were discussed and formulated with the house staff. Events reviewed 82 Years old Male with PMHx of HTN, Diabetes, Dementia and prior CVA with L sided paralysis Who was brought in by family with altered mental status, family members noted him to not be eating very well the last 3 days and becoming significantly less communicative since the AM. Patient has not been drinking much fluid last few days either. He was admitted to ICU with Altered mental status due to Metabolic from Hypernatremia and Uremia Vs CVA (Less Likely) Awake, but lethargic comfortable, NAD Afebrile, NSR on the monitor Last 24H I&O 1800/400 This morning labs revealed Leucocytosis trending down, improved renal function BUN/Cr down to 42/1.2 CCU Objective - Vital Signs / Intake & Output Vital Signs (Last 4 hours): Vital Signs Temp Pulse Resp BP Pulse Ox 11/26/17 14:00 80 17 126/74 98 11/26/17 12:00 98.9 F 89 19 122/73 94 L Intake and Output (Last 8hrs): Intake & Output 11/26/17 11/26/17 11/26/17 06:59 14:59 22:59 Intake Total 675 525 Output Total 400 375 Balance 275 150 Intake: IV 525 525 Intake, Piggyback 150 Oral 0 Output: Urine 400 375 Urethral (Bro) 400 375 Other: # Bowel Movements 0 - Physical Exam Head: Positive for: Atraumatic, Normocephalic Pupils: Positive for: PERRL Conjunctiva: Positive for: Normal Mouth: Positive for: Dry Nose (External): Positive for: Atraumatic Neck: Positive for: Normal Range of Motion Respiratory/Chest: Positive for: Clear to Auscultation Cardiovascular: Positive for: Regular Rate and Rhythm Abdomen: Positive for: Normal Bowel Sounds Upper Extremity: Positive for: Normal Inspection Lower Extremity: Positive for: Normal Inspection Psychiatric: Positive for: Other (awake, lethergic) - Medications Active Medications: Active Medications Generic Name Dose Route Start Last Admin Trade Name Freq PRN Reason Stop Dose Admin Acetaminophen 650 mg 11/25/17 08:15 11/25/17 09:11 Tylenol 650 Mg Supp [place] 650 mg Q6 PRN Administration temp >100.2 Aspirin 300 mg 11/23/17 09:00 11/26/17 09:20 Aspirin Supp [place] 300 mg DAILY ALANNAH Administration Heparin Sodium (Porcine) 5,000 units 11/23/17 01:00 11/26/17 09:18 Heparin SC 5,000 units Q8 ALANNAH Administration Protocol Insulin Human Lispro 0 units 11/23/17 06:45 11/26/17 12:34 Humalog SC 1 unit 0000,0600,1200,1800 ALANNAH Administration Protocol - Patient Studies Lab Studies: Microbiology Studies 11/23/17 06:03 Blood Culture - Preliminary Blood NO GROWTH AFTER 3 DAYS 11/23/17 06:03 Blood Culture - Preliminary Blood NO GROWTH AFTER 3 DAYS Lab Studies 11/26/17 11/26/17 11/26/17 Range/Units 11:45 05:00 05:00 WBC 12.2 H (4.8-10.8) K/uL RBC 4.66 (4.40-5.90) Mil/uL Hgb 14.1 D (12.0-18.0) g/dL Hct 43.6 (35.0-51.0) % MCV 93.4 (80.0-94.0) fl MCH 30.2 (27.0-31.0) pg MCHC 32.3 L (33.0-37.0) g/dL RDW 13.4 (11.5-14.5) % Plt Count 83 L (130-400) K/uL Sodium 154 H (132-148) mmol/l Potassium 3.3 L (3.6-5.0) MMOL/L Chloride 110 H (98-107) mmol/L Carbon Dioxide 29 (22-30) mmol/L Anion Gap 18 (10-20) BUN 42 H (9-20) mg/dl Creatinine 1.2 (0.8-1.5) mg/dl Est GFR ( Amer) > 60 Est GFR (Non-Af Amer) 58 POC Glucose (mg/dL) 197 H (65-110) mg/dL Random Glucose 216 H (75-110) mg/dL Calcium 8.2 L (8.4-10.2) mg/dL 11/26/17 11/26/17 11/25/17 Range/Units 04:57 01:14 21:47 WBC (4.8-10.8) K/uL RBC (4.40-5.90) Mil/uL Hgb (12.0-18.0) g/dL Hct (35.0-51.0) % MCV (80.0-94.0) fl MCH (27.0-31.0) pg MCHC (33.0-37.0) g/dL RDW (11.5-14.5) % Plt Count (130-400) K/uL Sodium (132-148) mmol/l Potassium (3.6-5.0) MMOL/L Chloride (98-107) mmol/L Carbon Dioxide (22-30) mmol/L Anion Gap (10-20) BUN (9-20) mg/dl Creatinine (0.8-1.5) mg/dl Est GFR ( Amer) Est GFR (Non-Af Amer) POC Glucose (mg/dL) 201 H 210 H 222 H (65-110) mg/dL Random Glucose (75-110) mg/dL Calcium (8.4-10.2) mg/dL 11/25/17 Range/Units 16:33 WBC (4.8-10.8) K/uL RBC (4.40-5.90) Mil/uL Hgb (12.0-18.0) g/dL Hct (35.0-51.0) % MCV (80.0-94.0) fl MCH (27.0-31.0) pg MCHC (33.0-37.0) g/dL RDW (11.5-14.5) % Plt Count (130-400) K/uL Sodium (132-148) mmol/l Potassium (3.6-5.0) MMOL/L Chloride (98-107) mmol/L Carbon Dioxide (22-30) mmol/L Anion Gap (10-20) BUN (9-20) mg/dl Creatinine (0.8-1.5) mg/dl Est GFR ( Amer) Est GFR (Non-Af Amer) POC Glucose (mg/dL) 225 H (65-110) mg/dL Random Glucose (75-110) mg/dL Calcium (8.4-10.2) mg/dL Laboratory Results - last 24 hr 11/25/17 11/25/17 11/26/17 16:33 21:47 01:14 WBC RBC Hgb Hct MCV MCH MCHC RDW Plt Count Sodium Potassium Chloride Carbon Dioxide Anion Gap BUN Creatinine Est GFR ( Amer) Est GFR (Non-Af Amer) POC Glucose (mg/dL) 225 H 222 H 210 H Random Glucose Calcium 11/26/17 11/26/17 11/26/17 04:57 05:00 05:00 WBC 12.2 H RBC 4.66 Hgb 14.1 D Hct 43.6 MCV 93.4 MCH 30.2 MCHC 32.3 L RDW 13.4 Plt Count 83 L Sodium 154 H Potassium 3.3 L Chloride 110 H Carbon Dioxide 29 Anion Gap 18 BUN 42 H Creatinine 1.2 Est GFR ( Amer) > 60 Est GFR (Non-Af Amer) 58 POC Glucose (mg/dL) 201 H Random Glucose 216 H Calcium 8.2 L 11/26/17 11:45 WBC RBC Hgb Hct MCV MCH MCHC RDW Plt Count Sodium Potassium Chloride Carbon Dioxide Anion Gap BUN Creatinine Est GFR ( Amer) Est GFR (Non-Af Amer) POC Glucose (mg/dL) 197 H Random Glucose Calcium Fingerstick Blood Sugar Results: 197 Critical Care Progress Note - Extremities/Vascular Does the Patient have a Central Venous Catheter?: No Does the Patient need a Central Venous Catheter?: No Does the Patient have a Bro Catheter?: No Does the Patient need a Bro Catheter?: No - Nutrition Nutrition: Nutrition Category Date Time Status NPO Diet [DIET] Diets 11/23/17 Breakfast Active Assessment/Plan (1) Acute metabolic encephalopathy Current Visit: Yes Status: Acute Priority: High Comment: - IV fluid - Follow up labs - Neuro check (2) Acute renal failure Current Visit: Yes Status: Acute Priority: High Comment: Improving This morning labs revealed improved renal function BUN/Cr down to 42/1.2 Continue hydrations (3) Hypernatremia Current Visit: Yes Status: Acute (4) Hypokalemia Current Visit: Yes Status: Acute Priority: High (5) DM2 (diabetes mellitus, type 2) Current Visit: Yes Status: Chronic Priority: Medium (6) Dementia Current Visit: Yes Status: Chronic Priority: Low (7) HTN (hypertension) Current Visit: No Status: Acute Priority: Medium (8) Prophylactic measure Current Visit: No Status: Acute Comment: SCDs ASA 325 mg Protonix 40mg heparin 5000 units SC Q 8H
--- NOTE | 2017-11-26 19:10 | CP.PCM.PN ---
Subjective - Date & Time of Evaluation Date of Evaluation: 11/26/17 Time of Evaluation: 17:00 - Subjective Subjective: Seen and examined at the bed side. Pt in bed, lethargic, able to open eyes. Moves RUE and lower extremities Objective - Vital Signs/Intake and Output Vital Signs (last 24 hours): Temp Pulse Resp BP Pulse Ox 99 F 85 15 119/68 95 11/26/17 16:00 11/26/17 18:00 11/26/17 18:00 11/26/17 18:00 11/26/17 18:00 Intake and Output: 11/26/17 11/27/17 18:59 06:59 Intake Total 825 Output Total 450 Balance 375 - Medications Medications: Current Medications Acetaminophen (Tylenol 650 Mg Supp) 650 mg [place] Q6 PRN PRN Reason: temp >100.2 Last Admin: 11/25/17 09:11 Dose: 650 mg Aspirin (Aspirin Supp) 300 mg [place] DAILY [facility] Last Admin: 11/26/17 09:20 Dose: 300 mg Heparin Sodium (Porcine) (Heparin) 5,000 units SC Q8 ALANNAH PRN Reason: Protocol Last Admin: 11/26/17 17:01 Dose: 5,000 units Insulin Human Lispro (Humalog) 0 units SC 0000,0600,1200,1800 ALANNAH PRN Reason: Protocol Last Admin: 11/26/17 17:01 Dose: 1 unit - Labs Labs: 11/26/17 05:00 11/26/17 05:00 PT 12.8 Seconds (9.8-13.1) 11/23/17 01:09 INR 1.2 (0.9-1.2) 11/23/17 01:09 APTT 31.3 Seconds (25.6-37.1) 11/23/17 01:09 - Constitutional Appears: Well, No Acute Distress - Head Exam Head Exam: ATRAUMATIC - Respiratory Exam Respiratory Exam: Clear to Ausculation Bilateral, NORMAL BREATHING PATTERN - Cardiovascular Exam Cardiovascular Exam: REGULAR RHYTHM, +S1, +S2 - GI/Abdominal Exam GI & Abdominal Exam: Soft, Normal Bowel Sounds - Neurological Exam Neurological Exam: Altered - Skin Skin Exam: Normal Color, Warm Assessment and Plan (1) Altered mental status Assessment & Plan: Metabolic due to Hypernatremia and Uremia Hypernatremia improving Continue IVF ICU monitor Neuro checks Neuro consult appreciated Status: Acute (2) Hypokalemia Assessment & Plan: Potassium replacement Status: Acute (3) Dementia Status: Chronic (4) Acute renal failure Assessment & Plan: Improving continue IVF Status: Acute (5) DM2 (diabetes mellitus, type 2) Assessment & Plan: Continue medications Status: Chronic (6) History of CVA with residual deficit Assessment & Plan: On Heparin ASA PT Status: Chronic
[2017-11-26] MEDS ORDERED: Potassium Chl 40mEq & D5W 1,000 ML IV SCH ×2 (20:15→20:30)
[2017-11-26] MEDS: Potassium Chl 20mEq & D5W 1,000 ML IV SCH (20:54)
[2017-11-27 05:44] LABS: HEMOGLOBIN 14.4 g/dL (12.0-18.0); MEAN CELL VOLUME 92.7 fl (80.0-94.0); MEAN CORPUSCULAR HEMOGLOBIN 30.4 pg (27.0-31.0); MEAN CORPUSCULAR HGB CONC 32.7 g/dL (33.0-37.0); RBC 4.74 Mil/uL (4.40-5.90); RED CELL DISTRIBUTION WIDTH 13.7 % (11.5-14.5); WHITE BLOOD COUNT 10.9 K/uL (4.8-10.8)
[2017-11-27 05:55] LABS: BLOOD UREA NITROGEN 37 mg/dl (9-20); CALCIUM 8.2 mg/dL (8.4-10.2); GFR AFRICAN-AMERICAN > 60; GFR NON-AFRICAN AMERICAN > 60
[2017-11-27] MEDS: Insulin Lispro (humaLOG) 100 Units/ml Inj SC SCH ×3 (06:16→17:13)
[2017-11-27] MEDS: Potassium Chl 20mEq & D5W 1,000 ML IV SCH ×2 (06:56→21:50)
--- NOTE | 2017-11-27 10:59 | CP.CCUPN ---
CCU Subjective - Physician Review Events Since Last Encounter (Free Text): 11/27/17 10:53 The patient was Seen/interviewed and examined by me at the bedside during ICU round, Medical records reviewed and Management issues were discussed and formulated with the house staff. Events reviewed 82 Years old Male with PMHx of HTN, Diabetes, Dementia and prior CVA with L sided paralysis Who was brought in by family with altered mental status, family members noted him to not be eating very well the last 3 days and becoming significantly less communicative since the AM. Patient has not been drinking much fluid last few days either. He was admitted to ICU with Altered mental status due to Metabolic from Hypernatremia and Uremia Vs CVA (Less Likely) Awake, less lethargic comfortable, NAD Afebrile, NSR on the monitor Last 24H I&O 1900/1050 This morning labs revealed Leucocytosis trending down 12.0-->10.9, improved renal function BUN/Cr down to 42/1.2-->37/1.1 Soduium level improved, down to 146. K 3.6 Remains NPO, Failed Swallow evaluation, will re-evaluated today Continued on D5w [Potassium Chl 20 Meq In D5w on 100/H Patient seen by physical therapy this morning Will discontinue Bro today CCU Objective - Vital Signs / Intake & Output Vital Signs (Last 4 hours): Vital Signs Temp Pulse Resp BP Pulse Ox 11/27/17 08:00 99.5 F 84 17 127/49 L 100 Intake and Output (Last 8hrs): Intake & Output 11/26/17 11/27/17 11/27/17 22:59 06:59 14:59 Intake Total 575 800 Output Total 75 600 Balance 500 200 Weight 161 lb Intake: IV 575 800 Oral 0 0 Output: Urine 75 600 Urethral (Bro) 75 600 - Physical Exam Physical Exam Limitations: Positive for: Altered Mental Status, Clinical Condition Head: Positive for: Atraumatic, Normocephalic Pupils: Positive for: PERRL Conjunctiva: Positive for: Normal Mouth: Positive for: Dry Nose (External): Positive for: Atraumatic Neck: Positive for: Normal Range of Motion Respiratory/Chest: Positive for: Clear to Auscultation Cardiovascular: Positive for: Regular Rate and Rhythm Abdomen: Positive for: Normal Bowel Sounds Upper Extremity: Positive for: Normal Inspection Lower Extremity: Positive for: Normal Inspection Psychiatric: Positive for: Other (awake, lethergic) - Medications Active Medications: Active Medications Generic Name Dose Route Start Last Admin Trade Name Joana PRN Reason Stop Dose Admin Acetaminophen 650 mg 11/25/17 08:15 11/25/17 09:11 Tylenol 650 Mg Supp OK 650 mg Q6 PRN Administration temp >100.2 Aspirin 300 mg 11/23/17 09:00 11/27/17 08:32 Aspirin Supp OK 300 mg DAILY ALANNAH Administration Heparin Sodium (Porcine) 5,000 units 11/23/17 01:00 11/27/17 08:31 Heparin SC 5,000 units Q8 ALANNAH Administration Protocol Potassium Chloride/Dextrose 1,000 mls @ 100 mls/hr 11/26/17 20:30 11/27/17 06 :56 Potassium Chl 20 Meq In D5w IV 100 mls/hr .Q10H ALANNAH Administration Insulin Human Lispro 0 units 11/23/17 06:45 11/27/17 06:16 Humalog SC 2 unit 0000,0600,1200,1800 ALANNAH Administration Protocol - Patient Studies Lab Studies: Microbiology Studies 11/23/17 06:03 Blood Culture - Preliminary Blood NO GROWTH AFTER 4 DAYS 11/23/17 06:03 Blood Culture - Preliminary Blood NO GROWTH AFTER 4 DAYS Lab Studies 11/27/17 11/27/17 11/27/17 Range/Units 05:00 04:20 04:20 WBC 10.9 H (4.8-10.8) K/uL RBC 4.74 (4.40-5.90) Mil/uL Hgb 14.4 (12.0-18.0) g/dL Hct 43.9 (35.0-51.0) % MCV 92.7 (80.0-94.0) fl MCH 30.4 (27.0-31.0) pg MCHC 32.7 L (33.0-37.0) g/dL RDW 13.7 (11.5-14.5) % Plt Count 96 L (130-400) K/uL Sodium 146 (132-148) mmol/l Potassium 3.6 (3.6-5.0) MMOL/L Chloride 106 (98-107) mmol/L Carbon Dioxide 30 (22-30) mmol/L Anion Gap 14 (10-20) BUN 37 H (9-20) mg/dl Creatinine 1.1 (0.8-1.5) mg/dl Est GFR ( Amer) > 60 Est GFR (Non-Af Amer) > 60 POC Glucose (mg/dL) 210 H (65-110) mg/dL Random Glucose 233 H (75-110) mg/dL Calcium 8.2 L (8.4-10.2) mg/dL 11/26/17 11/26/17 11/26/17 Range/Units 23:19 16:59 11:45 WBC (4.8-10.8) K/uL RBC (4.40-5.90) Mil/uL Hgb (12.0-18.0) g/dL Hct (35.0-51.0) % MCV (80.0-94.0) fl MCH (27.0-31.0) pg MCHC (33.0-37.0) g/dL RDW (11.5-14.5) % Plt Count (130-400) K/uL Sodium (132-148) mmol/l Potassium (3.6-5.0) MMOL/L Chloride (98-107) mmol/L Carbon Dioxide (22-30) mmol/L Anion Gap (10-20) BUN (9-20) mg/dl Creatinine (0.8-1.5) mg/dl Est GFR ( Amer) Est GFR (Non-Af Amer) POC Glucose (mg/dL) 200 H 189 H 197 H (65-110) mg/dL Random Glucose (75-110) mg/dL Calcium (8.4-10.2) mg/dL Laboratory Results - last 24 hr 11/26/17 11/26/17 11/26/17 11:45 16:59 23:19 WBC RBC Hgb Hct MCV MCH MCHC RDW Plt Count Sodium Potassium Chloride Carbon Dioxide Anion Gap BUN Creatinine Est GFR ( Amer) Est GFR (Non-Af Amer) POC Glucose (mg/dL) 197 H 189 H 200 H Random Glucose Calcium 11/27/17 11/27/17 11/27/17 04:20 04:20 05:00 WBC 10.9 H RBC 4.74 Hgb 14.4 Hct 43.9 MCV 92.7 MCH 30.4 MCHC 32.7 L RDW 13.7 Plt Count 96 L Sodium 146 Potassium 3.6 Chloride 106 Carbon Dioxide 30 Anion Gap 14 BUN 37 H Creatinine 1.1 Est GFR ( Amer) > 60 Est GFR (Non-Af Amer) > 60 POC Glucose (mg/dL) 210 H Random Glucose 233 H Calcium 8.2 L Fingerstick Blood Sugar Results: 210 Critical Care Progress Note - Extremities/Vascular Does the Patient have a Central Venous Catheter?: No Does the Patient need a Central Venous Catheter?: No Does the Patient have a Bro Catheter?: Yes Does the Patient need a Bro Catheter?: No (Will discoontinue today) - Nutrition Nutrition: Nutrition Category Date Time Status NPO Diet [DIET] Diets 11/23/17 Breakfast Active Assessment/Plan (1) Acute metabolic encephalopathy Current Visit: Yes Status: Acute Priority: High Comment: - IV fluid - Follow up labs - Neuro check (2) Acute renal failure Current Visit: Yes Status: Acute Priority: High Comment: Improving This morning labs revealed improved renal function BUN/Cr down to 42/1.2 Continue hydrations (3) Hypernatremia Current Visit: Yes Status: Acute (4) Hypokalemia Current Visit: Yes Status: Acute Priority: High (5) DM2 (diabetes mellitus, type 2) Current Visit: Yes Status: Chronic Priority: Medium (6) Dementia Current Visit: Yes Status: Chronic Priority: Low (7) HTN (hypertension) Current Visit: No Status: Acute Priority: Medium (8) Prophylactic measure Current Visit: No Status: Acute Comment: SCDs ASA 325 mg Protonix 40mg heparin 5000 units SC Q 8H
--- NOTE | 2017-11-27 22:10 | CP.PCM.PN ---
Subjective - Date & Time of Evaluation Date of Evaluation: 11/27/17 Time of Evaluation: 17:30 - Subjective Subjective: Pt seen and examined at bedside. Able to open eyes, less lethargic today Objective - Vital Signs/Intake and Output Vital Signs (last 24 hours): Temp Pulse Resp BP Pulse Ox 99.2 F 83 19 140/80 100 11/27/17 20:00 11/27/17 20:00 11/27/17 20:00 11/27/17 20:00 11/27/17 20:00 Intake and Output: 11/27/17 11/28/17 18:59 06:59 Intake Total 1100 200 Output Total 360 Balance 740 200 - Medications Medications: Current Medications Acetaminophen (Tylenol 650 Mg Supp) 650 mg [place] Q6 PRN PRN Reason: temp >100.2 Last Admin: 11/25/17 09:11 Dose: 650 mg Aspirin (Aspirin Supp) 300 mg [place] DAILY ALANNAH Last Admin: 11/27/17 08:32 Dose: 300 mg Heparin Sodium (Porcine) (Heparin) 5,000 units SC Q8 ALANNAH PRN Reason: Protocol Last Admin: 11/27/17 17:14 Dose: 5,000 units Potassium Chloride/Dextrose (Potassium Chl 20 Meq In D5w) 1,000 mls @ 100 mls/ hr IV .Q10H ALANNAH Last Admin: 11/27/17 21:50 Dose: 100 mls/hr Insulin Human Lispro (Humalog) 0 units SC 0000,0600,1200,1800 ALANNAH PRN Reason: Protocol Last Admin: 11/27/17 17:13 Dose: 2 unit - Labs Labs: 11/27/17 04:20 11/27/17 04:20 PT 12.8 Seconds (9.8-13.1) 11/23/17 01:09 INR 1.2 (0.9-1.2) 11/23/17 01:09 APTT 31.3 Seconds (25.6-37.1) 11/23/17 01:09 - Constitutional Appears: Well, No Acute Distress - Head Exam Head Exam: ATRAUMATIC - Respiratory Exam Respiratory Exam: Clear to Ausculation Bilateral, NORMAL BREATHING PATTERN - Cardiovascular Exam Cardiovascular Exam: REGULAR RHYTHM, +S1, +S2 - GI/Abdominal Exam GI & Abdominal Exam: Soft, Normal Bowel Sounds - Neurological Exam Neurological Exam: Altered - Psychiatric Exam Psychiatric exam: Normal Affect - Skin Skin Exam: Normal Color, Warm Assessment and Plan (1) Altered mental status Assessment & Plan: Metabolic due to Hypernatremia and Uremia Hypernatremia improved, Na level WNL Failed swallow evaluation Continue IVF Re-evaluate ICU monitor Neuro checks Neuro on board Status: Acute (2) Hypokalemia Assessment & Plan: Normal potassium level today Monitor labs Status: Acute (3) Dementia Status: Chronic (4) Acute renal failure Assessment & Plan: Improved. Continue IVF Status: Acute (5) DM2 (diabetes mellitus, type 2) Assessment & Plan: Insulin ss Status: Chronic (6) History of CVA with residual deficit Assessment & Plan: On heparin ASA PT Status: Chronic
[2017-11-28] MEDS: Insulin Lispro (humaLOG) 100 Units/ml Inj SC SCH ×4 (00:30→17:58)
[2017-11-28 05:36] LABS: HEMOGLOBIN 14.4 g/dL (12.0-18.0); MEAN CELL VOLUME 91.8 fl (80.0-94.0); MEAN CORPUSCULAR HEMOGLOBIN 30.3 pg (27.0-31.0); RBC 4.74 Mil/uL (4.40-5.90); RED CELL DISTRIBUTION WIDTH 13.5 % (11.5-14.5); WHITE BLOOD COUNT 13.4 K/uL (4.8-10.8)
[2017-11-28 05:51] LABS: BLOOD UREA NITROGEN 34 mg/dl (9-20); CALCIUM 7.9 mg/dL (8.4-10.2); GFR AFRICAN-AMERICAN > 60; GFR NON-AFRICAN AMERICAN > 60
--- NOTE | 2017-11-28 09:53 | CP.PCM.PN ---
Subjective - Date & Time of Evaluation Date of Evaluation: 11/28/17 Time of Evaluation: 09:53 - Subjective Subjective: Mr. Fowler was seen and examined at the bedside. He attempts to open his eyes with both verbal and noxious stimuli. He is able to move his right upper extremity and move/ withdraw his bilateral lower extremities in response to noxious stimuli. His left upper extremity remains flaccid. He tries to mumble words but it is incomprehensible. He is able to follow one command squeezing his right hand and raise it up, but not raising from elbow to shoulder. He spontaneously move his right side but not the left side. According to staff, the patient failed several attempts of swallowing evaluation. Patient has been NPO for almost 5 days.His sodium level is normal 142, but his WBC is increasing. There was no untoward events overnight. Objective - Vital Signs/Intake and Output Vital Signs (last 24 hours): Temp Pulse Resp BP Pulse Ox 98.8 F 95 H 16 112/64 98 11/28/17 04:00 11/28/17 06:00 11/28/17 06:00 11/28/17 06:00 11/28/17 06:00 Intake and Output: 11/28/17 11/28/17 06:59 18:59 Intake Total 1100 Balance 1100 - Medications Medications: Current Medications Acetaminophen (Tylenol 650 Mg Supp) 650 mg NV Q6 PRN PRN Reason: temp >100.2 Last Admin: 11/25/17 09:11 Dose: 650 mg Aspirin (Aspirin Supp) 300 mg NV DAILY ALANNAH Last Admin: 11/27/17 08:32 Dose: 300 mg Potassium Chloride/Dextrose/Sod Cl (Potassium Chl 20 Meq In D5-1/2ns) 1,000 mls @ 100 mls/hr IV .Q10H ALANNAH Stop: 11/29/17 07:06 Insulin Human Lispro (Humalog) 0 units SC 0000,0600,1200,1800 ALANNAH PRN Reason: Protocol Last Admin: 11/28/17 05:14 Dose: 3 unit - Labs Labs: 11/28/17 04:40 11/28/17 04:40 PT 12.8 Seconds (9.8-13.1) 11/23/17 01:09 INR 1.2 (0.9-1.2) 11/23/17 01:09 APTT 31.3 Seconds (25.6-37.1) 11/23/17 01:09 - Constitutional Appears: No Acute Distress - Head Exam Head Exam: NORMAL INSPECTION - Neurological Exam Neuro motor strength exam: Left Upper Extremity: 0, Right Upper Extremity: 5, Left Lower Extremity: 2/1, Right Lower Extremity: 4 Additional comments: Neurological unchanged from previous examination. Assessment and Plan (1) Acute metabolic encephalopathy Assessment & Plan: Case discussed with Dr. Melton, continue all current medical, physical, occupational, and speech therapies. Recommend to evaluate and treat elevated WBC. explore other options for feeding and medication administration. Recommend statin to keep LDL< 70. MRI of the brain to monitor and evaluate new infarction. Status: Acute
[2017-11-28] MEDS: Potassium Ch 20mEq in D5-1/2NS 1,000 ML IV SCH ×2 (10:37→22:30)
--- NOTE | 2017-11-28 10:52 | CP.CCUPN ---
CCU Subjective - Physician Review Subjective (Free Text): Lethargic, opens eyes to loud name calling, nonverbal, not distressed, otherwise non-interactive. Other VS and I/Os reviewed. No fever spikes since 11/25 at 100.1F. ROS: No other pertinent negs or positives on 10+ system review obtainable from intubated and sedated patient. PMSFH: All other Nursing and physician documentation reviewed to date; no new pertinent info noted relevant to current medical problems. EXAM- HEENT: no icterus, no gaze preference, pupils equal and reactive, no icterus NECK: No JVD, supple, carotids equal upstroke bilat/no bruits CHEST: decreased BS bases, no wheezes audible HEART: regular tachy, distant, S1S2, no rubs. ABD: soft, mild distention, no tympany, no palp tenderness, BS hypoactive. EXT: No peripheral/ digital cyanosis, no calf tenderness or palpable cords, distal pulses intact and symmetrical. NEURO: decreased tone in all extremities, left side is flaccid, withdraws RUE, RLE to pain. SKIN: no rashes, warm and dry. LABS: WBC= 13.4 HGB= 14.4 PLTs= 96 K INR= 1.2 on 11/23. Na= 142 K= 3.9 CL= 104 HCO3= 26 BUN/Cr= 34/1.0 BS= 237 IMPRESSION / MAJOR PROBLEMS NOW: 1. Acute / Subacute CVA involving Left Temporal area; old R basal ganglia CVA. 2. Metabolic encephalopathy 2 severe hypernatremia ( Na levels now normalized) 3. Azotemia 2 Dehydration 4. New Thrombocytopenia, evident since 11/24. 5. Uncontrolled Hyperglycemia, r/o new onset DM II; HNKC. PLAN: 1. Discussed with neuro and PMD: repeat brain imaging. 2. Change IVF components. 3. Stop Heparin. 4. SCDs ordered today. 5. HGBA1c, Serum osmolarity. 6. May need NGT for enteral nutritional support, has failed dysphagia eval twice, NPO since day of admission. Will also be an acceptable route for free water administration. 7. Clarify any Advance Directives. 8. See orders. CCU Objective - Vital Signs / Intake & Output Vital Signs (Last 4 hours): 124/72, HR 90, sinus, RR 16, SPO2 98% on NC, Afebrile Intake and Output (Last 8hrs): Intake & Output 11/27/17 11/28/17 11/28/17 22:59 06:59 14:59 Intake Total 600 800 400 Output Total 120 Balance 480 800 400 Intake: IV 600 800 400 Output: Urine 120 Urethral (Bro) 120
[2017-11-28] MEDS ORDERED: Chlorhexidine Gluconate 1 APPL/PKT TP ONE (11:13)
--- NOTE | 2017-11-28 16:50 | MRI ---
PROCEDURE: MRI BRAIN WITHOUT CONTRAST HISTORY: Follow-up of new stroke COMPARISON: Comparison made with prior MRI brain 11/23/2017. . TECHNIQUE: Multiplanar, multisequence MR images of the brain were obtained without intravenous contrast enhancement. FINDINGS: HEMORRHAGE: No acute parenchymal, subarachnoid nor extra-axial hemorrhage. . Large area of hemosiderin deposition in the right basal ganglia extending posteriorly and superiorly into the right coronal radiata consistent with sequela of old hemorrhage. There is also small foci of presumed hemosiderin deposition in the left inferior and left posterior temporal lobes. DWI: Re- demonstrated is a small curvilinear acute/subacute infarct in the medial aspect left temporal lobe and another rounded acute/ subacute infarct in the left posterior superior basal ganglia/ coronal radiata junction and an additional very tiny focus of restricted diffusion in the left posterior temporoparietal watershed zone, region the latter of which was not seen on the prior study. The 1st two acute - subacute infarct changes mentioned above, appear essentially unchanged allowing for differences in patient positioning and slice placement and technique. . BRAIN PARENCHYMA: Moderate to fairly significant chronic periventricular white matter ischemic changes again seen extending peripherally into the deep and subcortical white matter both cerebral hemispheres. Chronic appearing ischemic changes also seen within both basal nuclei and brainstem. Moderate to significant generalized volume loss. There is also localized area of Wallerian degeneration involving the right cerebral peduncle due to the aforementioned chronic right basal ganglia hemorrhage VENTRICLES: No obstructive hydrocephalus CRANIUM: Unremarkable. ORBITS: Orbits and contents unremarkable. PARANASAL SINUSES/MASTOIDS: Re- demonstrated is a small focal area polypoid like mucosal thickening left maxillary antrum. VASCULAR SYSTEM: Visualized major vascular flow voids at skull base patent. OTHER FINDINGS: None. IMPRESSION: Re- demonstrated are small acute infarcts seen in the left medial and left posterior temporal lobes with a tiny acute/subacute infarct in the left posterior temporoparietal watershed zone. Moderate to significant chronic white matter, basal nuclei and brainstem ischemic changes. Moderate to significant atrophy. Large area of hemosiderin deposition within the right basal ganglia extending superiorly and posterior along the right coronal radiata. There are also 2 tiny focal areas of hemosiderin deposition in the left inferior temporal and left posterior temporal lobes.
--- NOTE | 2017-11-28 16:59 | PCM.EEG ---
Electroencephalogram Report - Electroencephalogram Report Procedure Date: 11/26/17 Interpretation: Preliminary report : diffuse generalized slowing with no seizures or interictal epileptiform discharges. Slow pdr no sleep Impression: abnormal eeg --indicates severe encephalopathy
[2017-11-28] MEDS ORDERED: Insulin Detemir 100 Units/ml Inj SC SCH (22:00)
[2017-11-29 05:04] LABS: ABG ALLEN TEST YES; ARTERIAL BLOOD GAS HCO3 28.9 mmol/L (21-28); ARTERIAL BLOOD GAS HEMOGLOBIN 12.6 g/dL (11.7-17.4); ARTERIAL BLOOD GAS O2 CAPACITY 17.1 mL/dL (16-24); ARTERIAL BLOOD GAS O2 CONTENT 16.4 ML/dL (15-23); ARTERIAL BLOOD GAS O2 SAT 95.7 % (95-98); ARTERIAL BLOOD GAS PCO2 43 mm/Hg (35-45); ARTERIAL BLOOD GAS PH 7.45 (7.35-7.45); ARTERIAL BLOOD GAS PO2 65 mm/Hg (80-100); ARTERIAL BLOOD GAS TCO2 31.2 mmol/L (22-28)
[2017-11-29] MEDS: Insulin Lispro (humaLOG) 100 Units/ml Inj SC SCH ×4 (06:48→17:27)
[2017-11-29 07:13] LABS: BASO % 0.2 % (0.0-2.0); EOS # 0.2 K/uL (0.0-0.7); EOS % 1.7 % (0.0-4.0); HEMOGLOBIN 12.9 g/dL (12.0-18.0); LYMPH % 8.6 % (20.0-40.0); MEAN CELL VOLUME 91.6 fl (80.0-94.0); MEAN CORPUSCULAR HEMOGLOBIN 30.2 pg (27.0-31.0); MEAN PLATELET VOLUME 11.5 fl (7.2-11.7); MONO # 0.6 K/uL (0.0-0.8); MONO % 5.1 % (0.0-10.0); NEUT # 9.8 K/uL (1.8-7.0); NEUT % 84.4 % (50.0-75.0); PLATELET COUNT 102 K/uL (130-400); RBC 4.27 Mil/uL (4.40-5.90); RED CELL DISTRIBUTION WIDTH 13.1 % (11.5-14.5); WHITE BLOOD COUNT 11.6 K/uL (4.8-10.8)
[2017-11-29 07:18] LABS: INR 1.2 (0.9-1.2); PROTHROMBIN TIME 13.2 Seconds (9.8-13.1)
[2017-11-29 07:19] LABS: PARTIAL THROMBOPLASTIN TIME 36.5 Seconds (25.6-37.1)
--- NOTE | 2017-11-29 07:41 | CP.CCUPN ---
CCU Subjective - Physician Review Subjective (Free Text): Lethargic, opens eyes to loud name calling, nonverbal, not distressed, otherwise non-interactive. He did receive one dose of IV Ativan yesterday pre- MRI. Other VS and I/Os reviewed. No fever spikes since 11/25 at 100.1F. ROS: No other pertinent negs or positives on 10+ system review obtainable from intubated and sedated patient. PMSFH: All other Nursing and physician documentation reviewed to date; no new pertinent info noted relevant to current medical problems. EXAM- HEENT: no icterus, no gaze preference, pupils equal and reactive, no icterus NECK: No JVD, supple, carotids equal upstroke bilat/no bruits CHEST: decreased BS bases, no wheezes audible HEART: regular tachy, distant, S1S2, no rubs. ABD: soft, mild distention, no tympany, no palp tenderness, BS hypoactive. EXT: No peripheral/ digital cyanosis, no calf tenderness or palpable cords, distal pulses intact and symmetrical. NEURO: decreased tone in all extremities, left side is flaccid, withdraws RUE, RLE to pain. SKIN: no rashes, warm and dry. LABS: WBC= 11.6 HGB= 12.9 PLTs= 102K Na= 142 K= 3.9 CL= 104 HCO3= 26 BUN/Cr= 34/1.0 BS= 237 IMPRESSION / MAJOR PROBLEMS NOW: 1. Multiple Acute/subacute bilateral CVAs 2. Metabolic encephalopathy 2 severe hypernatremia ( Na levels now normalized) 3. Azotemia 2 Dehydration 4. New Thrombocytopenia, evident since 11/24. 5. Uncontrolled Hyperglycemia, r/o new onset DM II; HNKC. PLAN: 1. Discussed with neuro and PMD: repeat brain imaging with MRI results reviewed. 2. Changed IVF components. 3. Stop Heparin. Platelet counts still low, but not worse, at approx 100K. 4. HGBA1c, Serum osmolarity. Levemir started, increase to 12 U QHS. 5. May need NGT for enteral nutritional support, has failed dysphagia eval twice, NPO since day of admission. Will also be an acceptable route for free water administration. 6. Clarify any Advance Directives. 7. PT eval for rehab potential. 8. See orders. CCU Objective - Vital Signs / Intake & Output Vital Signs (Last 4 hours): Vital Signs Temp Pulse Resp BP Pulse Ox 11/29/17 06:00 89 16 110/64 97 11/29/17 04:00 993.6 F H 88 18 128/68 94 L Intake and Output (Last 8hrs): Intake & Output 11/28/17 11/29/17 11/29/17 22:59 06:59 14:59 Intake Total 1085 1070 Balance 1085 1070 Intake: IV 700 800 Oral 25 Tube Feeding 210 120 Free Water Flush 150 150 Other: # Voids Urine, Voided 1 - Physical Exam Psychiatric: Positive for: Other (awake, lethergic)
[2017-11-29 07:44] LABS: ALB/GLOB RATIO 0.8 (1.0-2.1); ALT/SGPT 49 U/L (21-72); AST/SGOT 68 U/L (17-59); BLOOD UREA NITROGEN 23 mg/dl (9-20); CALCIUM 8.1 mg/dL (8.4-10.2); GFR AFRICAN-AMERICAN > 60; GFR NON-AFRICAN AMERICAN > 60
[2017-11-29] MEDS: Insulin Detemir 100 Units/ml Inj SC SCH ×2 (08:58→21:03)
--- NOTE | 2017-11-29 09:47 | CP.PCM.PN ---
Subjective - Date & Time of Evaluation Date of Evaluation: 11/29/17 Time of Evaluation: 09:47 - Subjective Subjective: Mr. Fowler was seen and examined at the bedside. He attempts to open his eyes with both verbal and noxious stimuli. He is able to move his right upper extremity and move/ withdraw his bilateral lower extremities in response to noxious stimuli. His left upper extremity remains flaccid. He tries to mumble words but it is incomprehensible. He is able to follow one command squeezing his right hand and raise it up, but not raising from elbow to shoulder. He spontaneously move his right side but not the left side. He has NGT inserted in his nose and tolerating NGT feeding, no coughing. Repeat MRI of the brain done 11/28/2017 showed re-demonstration are small acute infarcts seen in the left medial and left posterior temporal lobes with tiny acute/subacute infarct in the left posterior temporoparietal watershed zone. Moderate to significant chronic white matter, basal nuclei, and brainstem ischemic changes. Moderate to significant atrophy. Large area of hemosiderin deposition within the right basal ganglia extending superiorly and posterior along the right coronal radiata. There are also 2 tiny focal areas of hemosiderin deposition in the left inferior temporal and posterior temporal lobes. He has bilateral lower extremities SCD'sThere is no new untoward events overnight. Objective - Vital Signs/Intake and Output Vital Signs (last 24 hours): Temp Pulse Resp BP Pulse Ox 100.1 F H 87 19 106/57 L 97 11/29/17 08:00 11/29/17 08:00 11/29/17 08:00 11/29/17 08:00 11/29/17 08:00 Intake and Output: 11/29/17 11/29/17 06:59 18:59 Intake Total 1680 Balance 1680 - Medications Medications: Current Medications Acetaminophen (Tylenol 650 Mg Supp) 650 mg [place] Q6 PRN PRN Reason: temp >100.2 Last Admin: 11/25/17 09:11 Dose: 650 mg Aspirin (Aspirin Supp) 300 mg [place] DAILY [facility] Last Admin: 11/28/17 10:42 Dose: 300 mg Aspirin (Aspirin) 325 mg NG DAILY [facility] Last Admin: 11/29/17 08:57 Dose: 325 mg Famotidine (Pepcid) 20 mg PO DAILY [facility] Last Admin: 11/29/17 09:01 Dose: 20 mg Insulin Detemir (Levemir) 12 units SC HS ALANNAH Last Admin: 11/29/17 08:58 Dose: 12 units Insulin Human Lispro (Humalog) 0 units SC 0000,0600,1200,1800 ALANNAH PRN Reason: Protocol Last Admin: 11/29/17 06:48 Dose: 1 unit - Labs Labs: 11/29/17 06:00 11/29/17 06:00 PT 13.2 Seconds (9.8-13.1) H 11/29/17 06:00 INR 1.2 (0.9-1.2) 11/29/17 06:00 APTT 36.5 Seconds (25.6-37.1) 11/29/17 06:00 - Constitutional Appears: No Acute Distress - Head Exam Head Exam: NORMAL INSPECTION - Neurological Exam Neuro motor strength exam: Left Upper Extremity: 0, Right Upper Extremity: 3, Left Lower Extremity: 0, Right Lower Extremity: 2/1 Additional comments: He remains non-verbal, withdraws to pain stimuli Assessment and Plan (1) Acute metabolic encephalopathy Assessment & Plan: Case discussed with Dr. Melton, continue all current medical, physical, occupational, and speech therapies. Recommend statin to keep LDL <70, lipitor 10 mg via NGT daily. Recommend glycemic control. Status: Acute
--- NOTE | 2017-11-29 10:04 | CP.PCM.PN ---
Subjective - Date & Time of Evaluation Date of Evaluation: 11/28/17 Time of Evaluation: 11:35 - Subjective Subjective: Seen and examined at bedside. Remains lethargic. Able to open eyes when called out loud. No fever. No over night events per nursing staff Objective - Vital Signs/Intake and Output Vital Signs (last 24 hours): Temp Pulse Resp BP Pulse Ox 100.1 F H 87 19 106/57 L 97 11/29/17 08:00 11/29/17 08:00 11/29/17 08:00 11/29/17 08:00 11/29/17 08:00 Intake and Output: 11/29/17 11/29/17 06:59 18:59 Intake Total 1680 Balance 1680 - Medications Medications: Current Medications Acetaminophen (Tylenol 650 Mg Supp) 650 mg [place] Q6 PRN PRN Reason: temp >100.2 Last Admin: 11/25/17 09:11 Dose: 650 mg Aspirin (Aspirin Supp) 300 mg [place] DAILY [facility] Last Admin: 11/28/17 10:42 Dose: 300 mg Aspirin (Aspirin) 325 mg NG DAILY [facility] Last Admin: 11/29/17 08:57 Dose: 325 mg Famotidine (Pepcid) 20 mg PO DAILY [facility] Last Admin: 11/29/17 09:01 Dose: 20 mg Insulin Detemir (Levemir) 12 units SC HS [facility] Last Admin: 11/29/17 08:58 Dose: 12 units Insulin Human Lispro (Humalog) 0 units SC 0000,0600,1200,1800 [facility] PRN Reason: Protocol Last Admin: 11/29/17 06:48 Dose: 1 unit - Labs Labs: 11/29/17 06:00 11/29/17 06:00 PT 13.2 Seconds (9.8-13.1) H 11/29/17 06:00 INR 1.2 (0.9-1.2) 11/29/17 06:00 APTT 36.5 Seconds (25.6-37.1) 11/29/17 06:00 - Constitutional Appears: No Acute Distress, Chronically Ill - Head Exam Head Exam: ATRAUMATIC - Respiratory Exam Respiratory Exam: Clear to Ausculation Bilateral, NORMAL BREATHING PATTERN - Cardiovascular Exam Cardiovascular Exam: REGULAR RHYTHM, +S1, +S2 - GI/Abdominal Exam GI & Abdominal Exam: Soft, Normal Bowel Sounds - Neurological Exam Neurological Exam: Altered - Skin Skin Exam: Dry, Warm Assessment and Plan (1) Altered mental status Assessment & Plan: AMS secondary to hypenatremia now resolved Has NGT, tube feeds were started IVF Neuro consult appreciated Continue ICU monitor Status: Acute (2) Hypokalemia Assessment & Plan: Resolved Status: Acute (3) Dementia Status: Chronic (4) Acute renal failure Assessment & Plan: Renal function improving IVF Status: Acute (5) DM2 (diabetes mellitus, type 2) Assessment & Plan: Continue insulin ss and Levemir F/u Hgb A1c Status: Chronic (6) History of CVA with residual deficit Assessment & Plan: continue ASA PT/OT Status: Chronic
[2017-11-29 10:17] LABS: BANDS 1 % (0-2); EOSINOPHIL 2 % (0-7); LYMPHOCYTE 11 % (20-50); MONOCYTE 5 % (0-10); NEUTROPHIL 81 % (42-75); TOTAL CELLS COUNTED 100
[2017-11-29 10:18] LABS: PLATELET ESTIMATE DECREASED (NORMAL)
--- NOTE | 2017-11-29 10:48 | RAD ---
HISTORY: chest congestion/Febrile COMPARISON: Portable chest 11/22/2017 FINDINGS: LUNGS: Trace atelectasis is seen at the left base laterally. No right-sided infiltrate. No pleural effusion. Cardiomediastinal silhouette is stable with exception of a nasogastric tube the terminates in the distal esophagus but is not demonstrated in the stomach at this time. Advancing the tube being 15-20 cm further into the stomach and confirmation by radiography is advised. PLEURA: No significant pleural effusion identified, no pneumothorax apparent. CARDIOVASCULAR: Normal. OSSEOUS STRUCTURES: No significant abnormalities. VISUALIZED UPPER ABDOMEN: Normal. OTHER FINDINGS: None. IMPRESSION: Limited atelectasis left base with remaining lung wallis clear. NG tube terminates in the distal esophagus region. Advancing the catheter into the stomach as discussed above is advised follow-up by confirmation radiography.
[2017-11-29] MEDS: Potassium Ch 20mEq in D5-1/2NS 1,000 ML IV SCH (21:09)
[2017-11-29] MEDS: Acetaminophen 650mg/20.3ml solution UD PO PRN (23:38)
[2017-11-30] MEDS: Insulin Lispro (humaLOG) 100 Units/ml Inj SC SCH ×4 (00:56→17:16)
[2017-11-30 05:47] LABS: HEMOGLOBIN 12.6 g/dL (12.0-18.0); MEAN CELL VOLUME 91.8 fl (80.0-94.0); MEAN CORPUSCULAR HEMOGLOBIN 30.4 pg (27.0-31.0); MEAN CORPUSCULAR HGB CONC 33.1 g/dL (33.0-37.0); RBC 4.16 Mil/uL (4.40-5.90); RED CELL DISTRIBUTION WIDTH 13.3 % (11.5-14.5); WHITE BLOOD COUNT 9.3 K/uL (4.8-10.8)
[2017-11-30 06:14] LABS: ALB/GLOB RATIO 0.8 (1.0-2.1); ALBUMIN 2.9 g/dL (3.5-5.0); ALT/SGPT 67 U/L (21-72); AST/SGOT 85 U/L (17-59); BLOOD UREA NITROGEN 21 mg/dl (9-20); GFR AFRICAN-AMERICAN > 60; GFR NON-AFRICAN AMERICAN > 60
[2017-11-30] MEDS ORDERED: Potassium Chloride 20 mEq/15 ml LIQ UD PO ONE (06:36)
--- NOTE | 2017-11-30 08:11 | CP.PCM.PN ---
Subjective - Date & Time of Evaluation Date of Evaluation: 11/30/17 Time of Evaluation: 08:11 - Subjective Subjective: Mr. Fowler was seen and examined at the bedside. He attempts to open his eyes with both verbal and noxious stimuli, but not able to maintain. He is able to move his right upper extremity and move/ withdraw his bilateral lower extremities in response to noxious stimuli. His left upper extremity remains flaccid. He tries to mumble words but it is incomprehensible. He is able to follow one command squeezing his right hand and raise it up, but not raising from elbow to shoulder. He spontaneously move his right side but not the left side. He has NGT inserted in his nose and tolerating NGT feeding, no coughing. There was no untoward events overnight. Objective - Vital Signs/Intake and Output Vital Signs (last 24 hours): Temp Pulse Resp BP Pulse Ox 99.1 F 85 14 112/60 97 11/30/17 04:00 11/30/17 07:58 11/30/17 06:00 11/30/17 07:58 11/30/17 06:00 Intake and Output: 11/30/17 11/30/17 06:59 18:59 Intake Total 1065 110 Balance 1065 110 - Medications Medications: Current Medications Acetaminophen (Tylenol 650mg/20.3ml Solution Ud) 650 mg PO Q6 PRN PRN Reason: temp >100.2 F Last Admin: 11/29/17 23:38 Dose: 650 mg Amantadine HCl (Amantadine 100 Mg Cap) 100 mg NG DAILY [facility] Last Admin: 11/29/17 12:12 Dose: 100 mg Aspirin (Aspirin Supp) 300 mg RI DAILY [facility] Last Admin: 11/28/17 10:42 Dose: 300 mg Aspirin (Aspirin) 325 mg NG DAILY [facility] Last Admin: 11/29/17 08:57 Dose: 325 mg Atorvastatin Calcium (Lipitor) 10 mg NG DAILY [facility] Last Admin: 11/29/17 21:01 Dose: 10 mg Famotidine (Pepcid) 20 mg PO DAILY [facility] Last Admin: 11/29/17 09:01 Dose: 20 mg Insulin Detemir (Levemir) 12 units SC HS [facility] Last Admin: 11/29/17 21:03 Dose: 12 units Insulin Human Lispro (Humalog) 0 units SC 0000,0600,1200,1800 [facility] PRN Reason: Protocol Last Admin: 11/30/17 06:30 Dose: 1 unit - Labs Labs: 11/30/17 04:55 11/30/17 04:55 PT 13.2 Seconds (9.8-13.1) H 11/29/17 06:00 INR 1.2 (0.9-1.2) 11/29/17 06:00 APTT 36.5 Seconds (25.6-37.1) 11/29/17 06:00 - Constitutional Appears: No Acute Distress - Head Exam Head Exam: NORMAL INSPECTION - Neurological Exam Neuro motor strength exam: Left Upper Extremity: 0, Right Upper Extremity: 4, Left Lower Extremity: 2/1, Right Lower Extremity: 2/1 Additional comments: Neurological unchanged from previous examination. Assessment and Plan (1) Acute metabolic encephalopathy Assessment & Plan: Case discussed with Dr. Melton, continue all current medical, physical, occupational, and speech therapies. Recommend statin to keep LDL <70, lipitor 10 mg via NGT daily. Recommend glycemic control. Recommend Amantadine 100 mg via NGT daily to assist the patient with wakefulness. Status: Acute
--- NOTE | 2017-11-30 10:18 | CP.CCUPN ---
CCU Subjective - Physician Review Subjective (Free Text): Lethargic, no new chnages nor improvement in neuromental status: opens eyes to loud name calling, nonverbal, not distressed, otherwise non-interactive. Other VS and I/Os reviewed. Max temps up to 100.8F yesterday. ROS: No other pertinent negs or positives on 10+ system review obtainable from intubated and sedated patient. PMSFH: All other Nursing and physician documentation reviewed to date; no new pertinent info noted relevant to current medical problems. EXAM- HEENT: no icterus, no gaze preference, pupils equal and reactive, absent gag NECK: No JVD, supple, carotids equal upstroke bilat/no bruits CHEST: decreased BS bases, no wheezes audible HEART: regular tachy, distant, S1S2, no rubs. ABD: soft, mild distention, no tympany, no palp tenderness, BS hypoactive. EXT: No peripheral/ digital cyanosis, no calf tenderness or palpable cords, distal pulses intact and symmetrical. NEURO: decreased tone in all extremities, left arm is flaccid, slight withdrawal of left leg, withdraws RUE, RLE to pain. SKIN: no rashes, warm and dry. LABS: WBC= 9.3 HGB= 12.6 PLTs= 98K Na= 141 K= 3.5 CL= 101 HCO3= 28 BUN/Cr= 21/0.9 BS= 193 IMPRESSION / MAJOR PROBLEMS NOW: 1. Multiple Acute/subacute bilateral CVAs 2. Metabolic encephalopathy 2 severe hypernatremia ( Na levels now normalized) 3. Azotemia 2 Dehydration 4. New Thrombocytopenia, evident since 11/24. 5. Uncontrolled Hyperglycemia, 2' new onset DM II; r/o'ed HNKC. PLAN: 1. Stable for Telemetry bed, anticipate no interventional critical care issues planned or to address. 2. Stopped Heparin. Platelet counts still low, but not worse. 3. HGBA1c = 8.4%, last serum osmo = 308, so no HNK state. Glucose levels improved, could increase Levemir a bit higher to 10-12 units QD. 4. Clarify any Advance Directives. 5. PT eval for rehab potential. Needs eval for PEG. 6. See orders. CCU Objective - Vital Signs / Intake & Output Vital Signs (Last 4 hours): Vital Signs Temp Pulse Resp BP Pulse Ox 11/30/17 08:00 99.3 F 85 14 133/73 96 11/30/17 07:58 85 112/60 Intake and Output (Last 8hrs): Intake & Output 11/29/17 11/30/17 11/30/17 22:59 06:59 14:59 Intake Total 1095 740 110 Balance 1095 740 110 Weight 159 lb Intake: IV 210 Tube Feeding 585 440 110 Free Water Flush 300 300 Other: # Bowel Movements 1
[2017-11-30] MEDS: Acetaminophen 650mg/20.3ml solution UD PO PRN (20:57)
[2017-11-30] MEDS: Insulin Detemir 100 Units/ml Inj SC SCH (21:10)
--- NOTE | 2017-11-30 23:15 | CP.PCM.PN ---
Subjective - Date & Time of Evaluation Date of Evaluation: 11/28/17 Time of Evaluation: 07:30 - Subjective Subjective: Patient seen in bed, slightly less lethargic. Able to open eyes when called aloud. Able to move RUE and b/l LEs slightly when prompted Has no fever Objective - Vital Signs/Intake and Output Vital Signs (last 24 hours): Temp Pulse Resp BP Pulse Ox 101.4 F H 110 H 19 112/71 95 11/30/17 20:57 11/30/17 22:00 11/30/17 22:00 11/30/17 22:00 11/30/17 22:00 Intake and Output: 11/30/17 12/01/17 18:59 06:59 Intake Total 960 370 Balance 960 370 - Medications Medications: Current Medications Acetaminophen (Tylenol 650mg/20.3ml Solution Ud) 650 mg PO Q6 PRN PRN Reason: temp >100.2 F Last Admin: 11/30/17 20:57 Dose: 650 mg Amantadine HCl (Amantadine 100 Mg Cap) 100 mg NG DAILY [facility] Last Admin: 11/30/17 09:27 Dose: 100 mg Aspirin (Aspirin Supp) 300 mg [place] DAILY [facility] Last Admin: 11/28/17 10:42 Dose: 300 mg Aspirin (Aspirin) 325 mg NG DAILY [facility] Last Admin: 11/30/17 09:27 Dose: 325 mg Atorvastatin Calcium (Lipitor) 10 mg NG DAILY [facility] Last Admin: 11/30/17 09:27 Dose: 10 mg Famotidine (Pepcid) 20 mg PO DAILY [facility] Last Admin: 11/30/17 09:27 Dose: 20 mg Insulin Detemir (Levemir) 12 units SC HS [facility] Last Admin: 11/30/17 21:10 Dose: 12 units Insulin Human Lispro (Humalog) 0 units SC 0000,0600,1200,1800 [facility] PRN Reason: Protocol Last Admin: 11/30/17 17:16 Dose: 1 unit - Labs Labs: 11/30/17 04:55 11/30/17 04:55 PT 13.2 Seconds (9.8-13.1) H 11/29/17 06:00 INR 1.2 (0.9-1.2) 11/29/17 06:00 APTT 36.5 Seconds (25.6-37.1) 11/29/17 06:00 - Constitutional Appears: Well, No Acute Distress - Head Exam Head Exam: ATRAUMATIC - Respiratory Exam Respiratory Exam: Clear to Ausculation Bilateral, NORMAL BREATHING PATTERN - Cardiovascular Exam Cardiovascular Exam: REGULAR RHYTHM, +S1, +S2 - GI/Abdominal Exam GI & Abdominal Exam: Soft, Normal Bowel Sounds - Neurological Exam Neurological Exam: Altered (lethargic) - Skin Skin Exam: Dry, Warm Assessment and Plan (1) Altered mental status Assessment & Plan: AMS secondary to hypenatremia now resolved Failed swallow evaluation x 2 Maintain NPO, may require feeding tube IVF Neuro consult appreciated ICU monitor Status: Acute (2) Hypokalemia Assessment & Plan: Potassium has normalized Status: Acute (3) Dementia Status: Chronic (4) Acute renal failure Assessment & Plan: Azotemia secondary to dehydration Kidney function improving IVF F/u labs Status: Acute (5) DM2 (diabetes mellitus, type 2) Assessment & Plan: Continue insulin coverage Monitor glucose levels F/u Hgb A1c Status: Chronic (6) History of CVA with residual deficit Assessment & Plan: Heparin dc'd due to thrombocytopenia Continue ASA PT/OT Status: Chronic
--- NOTE | 2017-11-30 23:15 | CP.PCM.PN ---
Subjective - Date & Time of Evaluation Date of Evaluation: 11/30/17 Time of Evaluation: 17:00 - Subjective Subjective: Still lethargic, no improvement in mental status. Able to open eyes when called out aloud Objective - Vital Signs/Intake and Output Vital Signs (last 24 hours): Temp Pulse Resp BP Pulse Ox 101.4 F H 110 H 19 112/71 95 11/30/17 20:57 11/30/17 22:00 11/30/17 22:00 11/30/17 22:00 11/30/17 22:00 Intake and Output: 11/30/17 12/01/17 18:59 06:59 Intake Total 960 370 Balance 960 370 - Medications Medications: Current Medications Acetaminophen (Tylenol 650mg/20.3ml Solution Ud) 650 mg PO Q6 PRN PRN Reason: temp >100.2 F Last Admin: 11/30/17 20:57 Dose: 650 mg Amantadine HCl (Amantadine 100 Mg Cap) 100 mg NG DAILY [facility] Last Admin: 11/30/17 09:27 Dose: 100 mg Aspirin (Aspirin Supp) 300 mg [place] DAILY [facility] Last Admin: 11/28/17 10:42 Dose: 300 mg Aspirin (Aspirin) 325 mg NG DAILY [facility] Last Admin: 11/30/17 09:27 Dose: 325 mg Atorvastatin Calcium (Lipitor) 10 mg NG DAILY [facility] Last Admin: 11/30/17 09:27 Dose: 10 mg Famotidine (Pepcid) 20 mg PO DAILY [facility] Last Admin: 11/30/17 09:27 Dose: 20 mg Insulin Detemir (Levemir) 12 units SC HS [facility] Last Admin: 11/30/17 21:10 Dose: 12 units Insulin Human Lispro (Humalog) 0 units SC 0000,0600,1200,1800 [facility] PRN Reason: Protocol Last Admin: 11/30/17 17:16 Dose: 1 unit - Labs Labs: 11/30/17 04:55 11/30/17 04:55 PT 13.2 Seconds (9.8-13.1) H 11/29/17 06:00 INR 1.2 (0.9-1.2) 11/29/17 06:00 APTT 36.5 Seconds (25.6-37.1) 11/29/17 06:00 - Constitutional Appears: No Acute Distress, Chronically Ill - Head Exam Head Exam: ATRAUMATIC - Respiratory Exam Respiratory Exam: Decreased Breath Sounds, NORMAL BREATHING PATTERN - Cardiovascular Exam Cardiovascular Exam: REGULAR RHYTHM, +S1, +S2 - GI/Abdominal Exam GI & Abdominal Exam: Soft, Normal Bowel Sounds - Neurological Exam Neurological Exam: Altered - Skin Skin Exam: Dry, Warm Assessment and Plan (1) Altered mental status Assessment & Plan: AMS secondary to hypenatremia now resolved Has NGT, tube feeds were started IVF Neuro consult appreciated For transfer from ICU to telemetry Status: Acute (2) Hypokalemia Status: Acute (3) Dementia Status: Chronic (4) Acute renal failure Assessment & Plan: Improved continue to monitor Status: Acute (5) DM2 (diabetes mellitus, type 2) Assessment & Plan: Continue insulin ss and Levemir Status: Chronic (6) History of CVA with residual deficit Assessment & Plan: ASA PT/OT Status: Chronic
[2017-12-01] MEDS: Insulin Lispro (humaLOG) 100 Units/ml Inj SC SCH ×5 (00:54→23:55)
[2017-12-01 06:24] LABS: HEMOGLOBIN 12.5 g/dL (12.0-18.0); MEAN CELL VOLUME 90.4 fl (80.0-94.0); MEAN CORPUSCULAR HEMOGLOBIN 30.3 pg (27.0-31.0); MEAN CORPUSCULAR HGB CONC 33.5 g/dL (33.0-37.0); RBC 4.12 Mil/uL (4.40-5.90); RED CELL DISTRIBUTION WIDTH 13.2 % (11.5-14.5); WHITE BLOOD COUNT 10.2 K/uL (4.8-10.8)
[2017-12-01 06:54] LABS: BLOOD UREA NITROGEN 21 mg/dl (9-20); CALCIUM 7.9 mg/dL (8.4-10.2); GFR AFRICAN-AMERICAN > 60; GFR NON-AFRICAN AMERICAN > 60
[2017-12-01] MEDS ORDERED: Chlorhexidine Gluconate 1 APPL/PKT TP ONE ×2 (10:07→12:25)
[2017-12-01 16:16] LABS: ABG ALLEN TEST YES; ARTERIAL BLOOD GAS HCO3 30.5 mmol/L (21-28); ARTERIAL BLOOD GAS O2 SAT 96.7 % (95-98); ARTERIAL BLOOD GAS PCO2 34 mm/Hg (35-45); ARTERIAL BLOOD GAS PH 7.55 (7.35-7.45); ARTERIAL BLOOD GAS PO2 65 mm/Hg (80-100); ARTERIAL BLOOD GAS TCO2 30.7 mmol/L (22-28)
--- NOTE | 2017-12-01 16:44 | CP.CCUPN ---
CCU Subjective - Physician Review Subjective (Free Text): Much more lethargic today, unresponsive to pain, febrile, if not consistently, now up to 102.8F; but no new leukocytosis noted, had been transferred to 4N Tele bed, but MASTER CARPENTER called for new higher fevers, and hypoxemia, so transferred back to ICU for care. He is tachycardic top 120 in sinus rhythm, BP 120/70. Bro removed several days ago, and multiple nurses have attempted NGT re- placement but have been unsuccessful, congested upper airway breath sounds noted. Other VS and I/Os reviewed. ROS: No other pertinent negs or positives on 10+ system review obtainable from unresponsive patient. PMSFH: All other Nursing and physician documentation reviewed to date; no new pertinent info noted relevant to current medical problems. EXAM- HEENT: no icterus, no gaze preference, pupils equal and reactive, absent gag NECK: No JVD, supple, carotids equal upstroke bilat/no bruits CHEST: decreased BS bases, no wheezes audible HEART: regular tachy, distant, S1S2, no rubs. ABD: soft, mild distention, no tympany, no palp tenderness, BS hypoactive. EXT: No peripheral/ digital cyanosis, no calf tenderness or palpable cords, distal pulses intact and symmetrical. NEURO: decreased tone in all extremities, left arm is flaccid, slight withdrawal of left leg, does not withdraw RUE, RLE to pain as noted yesterday. SKIN: no rashes, warm and dry. LABS: ABG 7.55/34/65 on 40% oxygen LACTATE = 2.0 WBC= 10.2 HGB= 12.5 PLTs= 125K Na= 137 K= 4.0 CL= 97 HCO3= 33 BUN/Cr= 21/1.0 BS= 157 IMPRESSION / MAJOR PROBLEMS NOW: 1. Multiple Acute/subacute bilateral CVAs with previous Metabolic encephalopathy 2 severe hypernatremia ( Na levels now normalized) 2. Persistent Fevers, r/o Central/CHECKERER HAND etiology 2 CVAs versus other occult infection / Aspiration 3. Azotemia 2 Dehydration- resolved 4. Thrombocytopenia, evident since 11/24. 5. Uncontrolled Hyperglycemia, 2' new onset DM II; r/o'ed HN. PLAN: 1. Repeat CT Brain now. 2. Neurochecks, elevate HOB, Seizure precautions, CT brain as above, EEG. 3. Will need supplemental oxygen, too lethargic for BiPAP, will try increasing FiO2 via face mask since he breathes with mouth open, otherwise will need oral intubation for airway protection. 4. Consider empiric abx coverage now, though last PCT 2 days ago was normal. 5. Hold further attempts at NGT placement, possible impacting secretion clearance and adding to aspiration risk. Will need consideration for PEG. 6. Need to clarify any Advance Directives with family. CCU Objective - Vital Signs / Intake & Output Vital Signs (Last 4 hours): Vital Signs Temp Pulse Resp BP Pulse Ox 12/01/17 16:15 102.8 F H 130 H 17 119/72 94 L 12/01/17 14:00 130 H 22 134/75 99 Intake and Output (Last 8hrs): Intake & Output 12/01/17 12/01/17 12/01/17 06:59 14:59 22:59 Intake Total 740 480 Balance 740 480 Weight 159 lb Intake: Tube Feeding 440 330 Free Water Flush 300 150
--- NOTE | 2017-12-01 16:45 | PCM.RRT ---
SUBPOENA SERVER Nurse Assessment - Situation SUBPOENA SERVER Responder Arrival Time: 21:55 SUBPOENA SERVER Called By: RN (for fever) - IV IV Inserted during SUBPOENA SERVER?: No - Respiratory Oxygen Delivery Method: Nasal Cannula (4L) - Diagnostic Test Ordered Chest X-Ray: Yes - Stat Labs Ordered SUBPOENA SERVER Stat Labs Ordered: CBC, BMP, ABG SUBPOENA SERVER Other Labs Ordered: procalcitonin - Vital Signs Vital Signs: T 102.8 BP 120/82 HR 128 O2 99% on 4L NC I.Reason for SUBPOENA SERVER - A) Acute Change in Patient: (Select all that apply): Staff member or family is worried about patient - Neurological Status (Select all that apply): Lethargic - Respiratory Oxygen Delivery Method: Nasal Cannula @L/min (4L) - Constitutional Additional Comments: lethargic - Head Head Exam: ATRAUMATIC, NORMOCEPHALIC Additional Comments: NC noted - Eyes Additional Comments: Pupils equal and reacts to light - Respiratory Exam Respiratory Exam: NORMAL BREATHING PATTERN. absent: Rales, Wheezes - Cardiovascular Exam Cardiovascular Exam: Tachycardia, +S1, +S2 - GI/Abdominal Exam GI & Abdominal Exam: Soft, Normal Bowel Sounds. absent: Distended - Neurological Exam Additional exam: lethargic and sleepy. responds to verbal stimuli Plan - Assessment of Findings&Treatment Plan Assessment/Plan: 82 YO Male with multiple bilateral CVA with L sided paralysis, HTN and uncontrolled DM II was admitted to [facility] for AMS and hypernatremia. SUBPOENA SERVER was called by RN at 3:55 for fever 102.8. SUBPOENA SERVER team arrived by bedside with Dr. Cespedes and Dr. Mccoy. Pt was seen and noted be more lethargic then previously, T was 102.8. Pt was given Tylenol suppository, blood work was drawn and pt transferred to ICU. Fever of unknown origin -last wbc is 10.2 on 12/01/17 -cbc, cmp -ABG -procalcitonin -Tylenol suppository -CXR portable Pt was transferred to ICU for further management and closer monitoring
--- NOTE | 2017-12-01 16:47 | RAD ---
HISTORY: NETWORK ADMINISTRATOR COMPARISON: 11/29/2017. FINDINGS: LUNGS: There is airspace disease in the right lower lobe. The left lung is clear. PLEURA: No significant pleural effusion identified, no pneumothorax apparent. CARDIOVASCULAR: Normal. OSSEOUS STRUCTURES: No significant abnormalities. VISUALIZED UPPER ABDOMEN: Normal. OTHER FINDINGS: None. IMPRESSION: Suspect right lower lobe pneumonia. Follow-up to resolution is advised.
[2017-12-01 16:59] LABS: BASO % 0.2 % (0.0-2.0); EOS % 0.1 % (0.0-4.0); HEMOGLOBIN 14.2 g/dL (12.0-18.0); LYMPH # 0.5 K/uL (1.0-4.3); LYMPH % 4.1 % (20.0-40.0); MEAN CELL VOLUME 90.4 fl (80.0-94.0); MEAN CORPUSCULAR HGB CONC 33.1 g/dL (33.0-37.0); MEAN PLATELET VOLUME 10.4 fl (7.2-11.7); MONO # 0.3 K/uL (0.0-0.8); MONO % 2.5 % (0.0-10.0); NEUT % 93.1 % (50.0-75.0); NRBC % 0.1 % (0.0-0.0); PLATELET COUNT 165 K/uL (130-400); RBC 4.75 Mil/uL (4.40-5.90); RED CELL DISTRIBUTION WIDTH 13.3 % (11.5-14.5); WHITE BLOOD COUNT 12.8 K/uL (4.8-10.8)
[2017-12-01 17:05] LABS: ALB/GLOB RATIO 0.8 (1.0-2.1); ALBUMIN 3.1 g/dL (3.5-5.0); ALT/SGPT 101 U/L (21-72); AST/SGOT 146 U/L (17-59); BLOOD UREA NITROGEN 23 mg/dl (9-20); CALCIUM 8.3 mg/dL (8.4-10.2); GFR AFRICAN-AMERICAN > 60; GFR NON-AFRICAN AMERICAN > 60
[2017-12-01] MEDS: Sodium Chloride 0.9% 1,000 ML IV SCH (17:20)
[2017-12-01 17:45] LABS: ANISOCYTOSIS SLIGHT; BANDS 15 % (0-2); LYMPHOCYTE 5 % (20-50); MONOCYTE 1 % (0-10); NEUTROPHIL 78 % (42-75); PLATELET ESTIMATE NORMAL (NORMAL); REACTIVE LYMPHOCYTES 1 % (0-0); TOTAL CELLS COUNTED 100; TOXIC GRANULATION PRESENT
[2017-12-01 17:46] LABS: LARGE PLATELETS PRESENT; POIKILOCYTOSIS SLIGHT; STOMATOCYTES SLIGHT
--- NOTE | 2017-12-01 17:57 | CT ---
PROCEDURE: CT HEAD WITHOUT CONTRAST. HISTORY: r/o new CVA, bleed. COMPARISON: MRI brain without contrast from 11/28 2017. TECHNIQUE: Axial computed tomography images were obtained through the head/brain without intravenous contrast. Radiation dose: Total exam DLP = 883.98 mGy-cm. This CT exam was performed using one or more of the following dose reduction techniques: Automated exposure control, adjustment of the mA and/or kV according to patient size, and/or use of iterative reconstruction technique. FINDINGS: HEMORRHAGE: No intracranial hemorrhage. BRAIN: There are severe chronic microangiopathic changes. There is a subacute infarction in the left holder radiata. There are old lacunar infarctions in bilateral basal ganglia. There is an old hemorrhagic infarction in the right posterior basal ganglia and medial temporal lobe.There are coarse atherosclerotic calcifications in the cavernous carotid arteries. VENTRICLES: There is severe age-related global parenchymal volume loss and proportionate enlargement of the ventricles and cortical sulci. . CALVARIUM: Unremarkable. PARANASAL SINUSES: There is mild polypoid mucosal thickening in the left maxillary sinus and left sphenoid chamber. The remaining included paranasal sinuses are clear. MASTOID AIR CELLS: Predominantly clear. OTHER FINDINGS: None. IMPRESSION: No acute intracranial abnormality. If there is a persistent focal neurologic deficit and an ongoing clinical concern for acute infarction, an MRI of the brain without intravenous contrast would be a more sensitive modality for evaluation of hyperacute/acute ischemic infarction. Subacute infarction in the left holder radiata. Old hemorrhagic infarction in the right posterior basal ganglia and medial temporal lobe. Severe chronic microangiopathic changes and moderate age-related global parenchymal volume loss.
[2017-12-01 18:42] LABS: SQUAMOUS EPITHIAL < 1 /hpf (0-5); URINE AMORPHOUS SEDIMENT RARE /ul (<OCC); URINE BACTERIA RARE (<OCC); URINE BILIRUBIN NEGATIVE (NEGATIVE); URINE BLOOD NEGATIVE (NEGATIVE); URINE CLARITY CLOUDY (Clear); URINE COLOR AMBER (YELLOW); URINE GLUCOSE (UA) 50 mg/dL (Normal); URINE LEUKOCYTE ESTERASE NEG Leu/uL (Negative); URINE PROTEIN 30 mg/dL (NEGATIVE)
[2017-12-01] MEDS: Piperacillin/Tazobact 3.375 GM in Sodium Chloride 0.9% 100 ML IVPB SCH (21:22)
[2017-12-01] MEDS: Insulin Detemir 100 Units/ml Inj SC SCH (21:23)
[2017-12-02] MEDS: Piperacillin/Tazobact 3.375 GM in Sodium Chloride 0.9% 100 ML IVPB SCH ×4 (03:56→22:51)
[2017-12-02] MEDS: Sodium Chloride 0.9% 1,000 ML IV SCH ×2 (06:02→22:51)
[2017-12-02] MEDS: Insulin Lispro (humaLOG) 100 Units/ml Inj SC SCH ×3 (06:02→18:19)
[2017-12-02 06:20] LABS: HEMOGLOBIN 12.1 g/dL (12.0-18.0); MEAN CELL VOLUME 90.6 fl (80.0-94.0); MEAN CORPUSCULAR HEMOGLOBIN 29.9 pg (27.0-31.0); RBC 4.04 Mil/uL (4.40-5.90); RED CELL DISTRIBUTION WIDTH 13.4 % (11.5-14.5); WHITE BLOOD COUNT 10.2 K/uL (4.8-10.8)
[2017-12-02 06:29] LABS: BLOOD UREA NITROGEN 27 mg/dl (9-20); CALCIUM 7.8 mg/dL (8.4-10.2); GFR AFRICAN-AMERICAN > 60; GFR NON-AFRICAN AMERICAN 58
--- NOTE | 2017-12-02 08:09 | CP.CCUPN ---
CCU Subjective - Physician Review Subjective (Free Text): Remains lethargic with no improvement in neuro status since yesterday's POLISHER NUMERAL eval. Other VS and I/Os reviewed. ROS: No other pertinent negs or positives on 10+ system review obtainable from unresponsive patient. PMSFH: All other Nursing and physician documentation reviewed to date; no new pertinent info noted relevant to current medical problems. EXAM- HEENT: no icterus, no gaze preference, pupils equal and reactive, absent gag NECK: No JVD, supple, carotids equal upstroke bilat/no bruits CHEST: decreased BS bases, no wheezes audible HEART: regular tachy, distant, S1S2, no rubs. ABD: soft, mild distention, no tympany, no palp tenderness, BS hypoactive. EXT: No peripheral/ digital cyanosis, no calf tenderness or palpable cords, distal pulses intact and symmetrical. NEURO: decreased tone in all extremities, left arm is flaccid, slight withdrawal of left leg, does not withdraw RUE, RLE to pain as noted previously SKIN: no rashes, warm and dry. LABS: WBC= 10.2 HGB= 12.1 PLTs= 154K Na= 144 K= 4.3 CL= 100 HCO3= 31 BUN/Cr= 27/1.2 BS= 142 CXR: increased RLL and RML interstitial changes. IMPRESSION / MAJOR PROBLEMS NOW: 1. Multiple Acute/subacute bilateral CVAs with previous Metabolic encephalopathy 2 severe hypernatremia ( Na levels now normalized) 2. Persistent Fevers, r/o Central/NET DEVELOPMENT MANAGER etiology 2 CVAs versus other occult infection / Aspiration 3. Azotemia 2 Dehydration- resolved 4. Thrombocytopenia, evident since 11/24. 5. Uncontrolled Hyperglycemia, 2' new onset DM II; r/o'ed [facility]. PLAN: 1. Repeat CT Brain official results reviewed: will discuss with Neuro if a 3rd Brain MRI is needed. 2. Neurochecks, elevate HOB, Seizure precautions, consider EEG. 3. On supplemental oxygen, too lethargic for BiPAP, on 50% FiO2 via face mask , now DNI status noted. 4. Started empiric abx coverage, WBC elevation shows bandemia. 5. Hold further attempts at NGT placement, possible impacting secretion clearance and adding to aspiration risk. Will need consideration for PEG. 6. Copy of Advance Directives provided by family; placed on chart. CCU Objective - Vital Signs / Intake & Output Vital Signs (Last 4 hours): Vital Signs Pulse Resp BP Pulse Ox 12/02/17 04:00 98 H 14 134/47 L 100 Intake and Output (Last 8hrs): Intake & Output 12/01/17 12/02/17 12/02/17 22:59 06:59 14:59 Intake Total 400 600 Balance 400 600 Intake: IV 300 500 Intake, Piggyback 100 100
--- NOTE | 2017-12-02 08:53 | CP.PCM.PN ---
Subjective - Date & Time of Evaluation Date of Evaluation: 12/02/17 Time of Evaluation: 08:52 - Subjective Subjective: MR. Cheatham was seen and examined at the bedside in ICU. He is lethargic, on 50 % venti mask, unable to open his eyes spontaneously. He was transferred to telemetry, but had episode of febrile episode t- max- 102.8, at present, his temp 99.5. The patient has no NGT, with minimal response to pain stimuli. The patient was placed to DNR/DNI by his family. Hospice is being consulted for this patient. CT scan of the head done 12/01/2017 showed no acute intracranial abnormality. If there is a persistent focal neurologic deficit and on going clinical concern for acute infarction. There is subacute infarction in the left holder radiata. Old hemorrhagic infarction in the right posterior basal ganglia and medial temporal lobe. Severe chronic microangiopathic changes and moderate age-related global parenchymal volume loss. Objective - Vital Signs/Intake and Output Vital Signs (last 24 hours): Temp Pulse Resp BP Pulse Ox 99.5 F 85 16 92/54 L 100 12/02/17 00:00 12/02/17 06:00 12/02/17 06:00 12/02/17 06:00 12/02/17 06:00 Intake and Output: 12/02/17 12/02/17 06:59 18:59 Intake Total 1100 Output Total 300 Balance 800 - Medications Medications: Current Medications Acetaminophen (Tylenol 650mg/20.3ml Solution Ud) 650 mg PO Q6 PRN PRN Reason: temp >100.2 F Last Admin: 11/30/17 20:57 Dose: 650 mg Acetaminophen (Tylenol 650 Mg Supp) 650 mg DC Q6 PRN PRN Reason: temp Last Admin: 12/01/17 20:07 Dose: 650 mg Acetaminophen (Tylenol 650 Mg Supp) 650 mg DC ONCE PRN PRN Reason: Fever >100.4 F Aspirin (Aspirin Supp) 300 mg DC DAILY [facility] Last Admin: 11/28/17 10:42 Dose: 300 mg Aspirin (Aspirin) 325 mg NG DAILY [facility] Last Admin: 12/01/17 09:20 Dose: 325 mg Atorvastatin Calcium (Lipitor) 10 mg NG DAILY [facility] Last Admin: 12/01/17 09:19 Dose: 10 mg Famotidine (Pepcid) 20 mg PO DAILY [facility] Last Admin: 12/01/17 09:18 Dose: 20 mg Sodium Chloride (Sodium Chloride 0.9%) 1,000 mls @ 100 mls/hr IV .Q10H [facility] Stop: 12/02/17 16:48 Last Admin: 12/02/17 06:02 Dose: 100 mls/hr Piperacillin Sod/Tazobactam (Sod 3.375 gm/ Sodium Chloride) 100 mls @ 100 mls/ hr IVPB Q6 [facility] PRN Reason: Protocol Last Admin: 12/02/17 03:56 Dose: 100 mls/hr Vancomycin HCl 1 gm/ Sodium (Chloride) 250 mls @ 166.667 mls/hr IVPB DAILY [facility] PRN Reason: Protocol Last Admin: 12/01/17 18:29 Dose: 166.667 mls/hr Insulin Detemir (Levemir) 12 units SC HS [facility] Last Admin: 12/01/17 21:23 Dose: 12 units Insulin Human Lispro (Humalog) 0 units SC 0000,0600,1200,1800 [facility] PRN Reason: Protocol Last Admin: 12/02/17 06:02 Dose: 1 unit Pantoprazole Sodium (Protonix Inj) 40 mg IVP DAILY [facility] Last Admin: 12/01/17 18:32 Dose: 40 mg - Labs Labs: 12/02/17 06:04 12/02/17 06:04 PT 13.2 Seconds (9.8-13.1) H 11/29/17 06:00 INR 1.2 (0.9-1.2) 11/29/17 06:00 APTT 36.5 Seconds (25.6-37.1) 11/29/17 06:00 - Constitutional Appears: No Acute Distress - Head Exam Head Exam: NORMAL INSPECTION - Neurological Exam Neuro motor strength exam: Left Upper Extremity: 0, Right Upper Extremity: 0, Left Lower Extremity: 0, Right Lower Extremity: 0 Additional comments: He is lethargic, unable to follow any commands Assessment and Plan (1) Acute metabolic encephalopathy Assessment & Plan: Case discussed with Dr. Melton, continue all current medical regimen. Recommend palliative management. Status: Acute
--- NOTE | 2017-12-02 15:26 | CP.PCM.PN ---
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.8 Objective - Vital Signs/Intake and Output Vital Signs (last 24 hours): Temp Pulse Resp BP Pulse Ox 97.7 F 88 16 100/54 L 100 12/02/17 12:00 12/02/17 14:00 12/02/17 14:00 12/02/17 14:00 12/02/17 14:00 Intake and Output: 12/02/17 12/02/17 06:59 18:59 Intake Total 1100 1150 Output Total 300 Balance 800 1150 - Medications Medications: Current Medications Acetaminophen (Tylenol 650mg/20.3ml Solution Ud) 650 mg PO Q6 PRN PRN Reason: temp >100.2 F Last Admin: 11/30/17 20:57 Dose: 650 mg Acetaminophen (Tylenol 650 Mg Supp) 650 mg NH Q6 PRN PRN Reason: temp Last Admin: 12/01/17 20:07 Dose: 650 mg Acetaminophen (Tylenol 650 Mg Supp) 650 mg NH ONCE PRN PRN Reason: Fever >100.4 F Aspirin (Aspirin Supp) 300 mg NH DAILY [facility] Last Admin: 12/02/17 09:33 Dose: 300 mg Aspirin (Aspirin) 325 mg NG DAILY [facility] Last Admin: 12/01/17 09:20 Dose: 325 mg Atorvastatin Calcium (Lipitor) 10 mg NG DAILY [facility] Last Admin: 12/01/17 09:19 Dose: 10 mg Famotidine (Pepcid) 20 mg PO DAILY [facility] Last Admin: 12/01/17 09:18 Dose: 20 mg Sodium Chloride (Sodium Chloride 0.9%) 1,000 mls @ 100 mls/hr IV .Q10H [facility] Stop: 12/02/17 16:48 Last Admin: 12/02/17 06:02 Dose: 100 mls/hr Piperacillin Sod/Tazobactam (Sod 3.375 gm/ Sodium Chloride) 100 mls @ 100 mls/ hr IVPB Q6 [facility] PRN Reason: Protocol Last Admin: 12/02/17 10:00 Dose: 100 mls/hr Vancomycin HCl 1 gm/ Sodium (Chloride) 250 mls @ 166.667 mls/hr IVPB DAILY [facility] PRN Reason: Protocol Last Admin: 12/02/17 08:47 Dose: 166.667 mls/hr Insulin Detemir (Levemir) 12 units SC HS [facility] Last Admin: 12/01/17 21:23 Dose: 12 units Insulin Human Lispro (Humalog) 0 units SC 0000,0600,1200,1800 [facility] PRN Reason: Protocol Last Admin: 12/02/17 12:03 Dose: Not Given Pantoprazole Sodium (Protonix Inj) 40 mg IVP DAILY [facility] Last Admin: 12/02/17 08:46 Dose: 40 mg - Labs Labs: 12/02/17 06:04 12/02/17 06:04 PT 13.2 Seconds (9.8-13.1) H 11/29/17 06:00 INR 1.2 (0.9-1.2) 11/29/17 06:00 APTT 36.5 Seconds (25.6-37.1) 11/29/17 06:00 - Constitutional Appears: Confused, Chronically Ill - Head Exam Head Exam: ATRAUMATIC - Respiratory Exam Respiratory Exam: Decreased Breath Sounds, NORMAL BREATHING PATTERN - Cardiovascular Exam Cardiovascular Exam: Tachycardia, +S1, +S2 - GI/Abdominal Exam GI & Abdominal Exam: Soft, Normal Bowel Sounds - Neurological Exam Neurological Exam: Altered - Skin Skin Exam: Dry, Warm Assessment and Plan (1) Altered mental status Assessment & Plan: AMS secondary to hypernatremia now normalized Pt was tachycardic and had fever possible aspiration pna transferred back to ICU for closer monitoring Hold tube feeds NPO Cxr IV antibiotics Status: Acute (2) Hypokalemia Status: Acute (3) Dementia Status: Chronic (4) Acute renal failure Assessment & Plan: Stable renal function Status: Acute (5) DM2 (diabetes mellitus, type 2) Assessment & Plan: Blood sugar levels better controlled On insulin ss and Levemir at bedtime Status: Chronic (6) History of CVA with residual deficit Assessment & Plan: ASA PT/OT Status: Chronic
--- NOTE | 2017-12-02 20:35 | CP.PCM.PN ---
Subjective - Date & Time of Evaluation Date of Evaluation: 12/02/17 Time of Evaluation: 16:45 - Subjective Subjective: Lethargic, barely moves extremities or opens eyes. On 50%venti mask No fever today, last night had temp 101.5 Objective - Vital Signs/Intake and Output Vital Signs (last 24 hours): Temp Pulse Resp BP Pulse Ox 98.7 F 78 16 97/57 L 100 12/02/17 15:47 12/02/17 18:00 12/02/17 18:00 12/02/17 18:00 12/02/17 18:00 Intake and Output: 12/02/17 12/03/17 18:59 06:59 Intake Total 1550 Output Total 400 Balance 1150 - Medications Medications: Current Medications Acetaminophen (Tylenol 650mg/20.3ml Solution Ud) 650 mg PO Q6 PRN PRN Reason: temp >100.2 F Last Admin: 11/30/17 20:57 Dose: 650 mg Acetaminophen (Tylenol 650 Mg Supp) 650 mg [place] Q6 PRN PRN Reason: temp Last Admin: 12/01/17 20:07 Dose: 650 mg Acetaminophen (Tylenol 650 Mg Supp) 650 mg ME ONCE PRN PRN Reason: Fever >100.4 F Aspirin (Aspirin Supp) 300 mg ME DAILY [facility] Last Admin: 12/02/17 09:33 Dose: 300 mg Aspirin (Aspirin) 325 mg NG DAILY [facility] Last Admin: 12/01/17 09:20 Dose: 325 mg Atorvastatin Calcium (Lipitor) 10 mg NG DAILY [facility] Last Admin: 12/01/17 09:19 Dose: 10 mg Famotidine (Pepcid) 20 mg PO DAILY [facility] Last Admin: 12/01/17 09:18 Dose: 20 mg Piperacillin Sod/Tazobactam (Sod 3.375 gm/ Sodium Chloride) 100 mls @ 100 mls/ hr IVPB Q6 [facility] PRN Reason: Protocol Last Admin: 12/02/17 16:35 Dose: 100 mls/hr Vancomycin HCl 1 gm/ Sodium (Chloride) 250 mls @ 166.667 mls/hr IVPB DAILY [facility] PRN Reason: Protocol Last Admin: 12/02/17 08:47 Dose: 166.667 mls/hr Insulin Detemir (Levemir) 12 units SC [facility] Last Admin: 12/01/17 21:23 Dose: 12 units Insulin Human Lispro (Humalog) 0 units SC 0000,0600,1200,1800 [facility] PRN Reason: Protocol Last Admin: 12/02/17 18:19 Dose: Not Given Pantoprazole Sodium (Protonix Inj) 40 mg IVP DAILY [facility] Last Admin: 12/02/17 08:46 Dose: 40 mg - Labs Labs: 12/02/17 06:04 12/02/17 06:04 PT 13.2 Seconds (9.8-13.1) H 11/29/17 06:00 INR 1.2 (0.9-1.2) 11/29/17 06:00 APTT 36.5 Seconds (25.6-37.1) 11/29/17 06:00 - Constitutional Appears: Chronically Ill (lethargic) - Head Exam Head Exam: ATRAUMATIC - Respiratory Exam Respiratory Exam: Decreased Breath Sounds, NORMAL BREATHING PATTERN - Cardiovascular Exam Cardiovascular Exam: REGULAR RHYTHM, +S1, +S2 - GI/Abdominal Exam GI & Abdominal Exam: Soft, Normal Bowel Sounds - Neurological Exam Neurological Exam: Altered - Skin Skin Exam: Dry, Warm Assessment and Plan (1) Altered mental status Assessment & Plan: AMS secondary to hypernatremia now normalized Last fever was yesterday RLL pneumonia on cxr Antibiotics in progress NPO Code status DNR/DNI Hospice to evaluate Status: Acute (2) Hypokalemia Status: Acute (3) Dementia Status: Chronic (4) Acute renal failure Assessment & Plan: Stable renal function Status: Acute (5) DM2 (diabetes mellitus, type 2) Assessment & Plan: Continue same treatment Status: Chronic (6) History of CVA with residual deficit Assessment & Plan: On ASA Status: Chronic
[2017-12-02] MEDS: Insulin Detemir 100 Units/ml Inj SC SCH (21:28)
[2017-12-03] MEDS: Piperacillin/Tazobact 3.375 GM in Sodium Chloride 0.9% 100 ML IVPB SCH ×4 (04:30→21:30)
[2017-12-03 05:21] LABS: BASO % 0.3 % (0.0-2.0); EOS # 0.2 K/uL (0.0-0.7); EOS % 1.8 % (0.0-4.0); HEMOGLOBIN 11.8 g/dL (12.0-18.0); LYMPH % 9.6 % (20.0-40.0); MEAN CELL VOLUME 92.3 fl (80.0-94.0); MEAN CORPUSCULAR HEMOGLOBIN 30.6 pg (27.0-31.0); MEAN CORPUSCULAR HGB CONC 33.2 g/dL (33.0-37.0); MEAN PLATELET VOLUME 10.5 fl (7.2-11.7); MONO # 0.4 K/uL (0.0-0.8); MONO % 3.8 % (0.0-10.0); NEUT # 8.6 K/uL (1.8-7.0); NEUT % 84.5 % (50.0-75.0); NRBC % 0.1 % (0.0-0.0); RBC 3.85 Mil/uL (4.40-5.90); RED CELL DISTRIBUTION WIDTH 13.4 % (11.5-14.5); WHITE BLOOD COUNT 10.2 K/uL (4.8-10.8)
[2017-12-03 05:26] LABS: ALB/GLOB RATIO 0.7 (1.0-2.1); ALBUMIN 2.5 g/dL (3.5-5.0); ALT/SGPT 106 U/L (21-72); AST/SGOT 157 U/L (17-59); BLOOD UREA NITROGEN 26 mg/dl (9-20); CALCIUM 7.8 mg/dL (8.4-10.2); GFR AFRICAN-AMERICAN > 60; GFR NON-AFRICAN AMERICAN > 60
--- NOTE | 2017-12-03 07:28 | CP.CCUPN ---
CCU Subjective - Physician Review Events Since Last Encounter (Free Text): 12/03/17 The patient was Seen/interviewed and examined by me at the bedside during ICU round, Medical records reviewed and Management issues were discussed and formulated with the house staff. Events reviewed 82 Years old Male with PMHx of HTN, Diabetes, Dementia and prior CVA with L sided paralysis Who was brought in by family with altered mental status, family members noted him to not be eating very well the last 3 days and becoming significantly less communicative since the AM. Patient has not been drinking much fluid last few days either. He was admitted to ICU with Altered mental status due to Metabolic from Hypernatremia and Uremia Vs CVA (Less Likely) Pt condition improved and was transferred out of ICU 12/01, INSPECTOR TECHNICIAN was called by RN for fever 102.8, Pt was noted be more lethargic and febrile. Pt was given Tylenol suppository, blood work was drawn and was transferred back to ICU. Awake, but lethargic comfortable, NAD Afebrile, NSR on the monitor Last 24H I&O 2750/1150 This morning labs revealed Leucocytosis trending down, improved renal function BUN/Cr down to 26/1.1 12/03/17 The patient was made DNR/DNI by his family, and will be evaluated by hospice care. CCU Objective - Vital Signs / Intake & Output Vital Signs (Last 4 hours): Vital Signs Temp Pulse Resp BP Pulse Ox 12/03/17 06:00 79 15 104/60 100 12/03/17 04:00 98.7 F 78 13 105/58 L 100 Intake and Output (Last 8hrs): Intake & Output 12/02/17 12/03/17 12/03/17 22:59 06:59 14:59 Intake Total 800 800 Output Total 400 750 Balance 400 50 Intake: IV 700 700 Intake, Piggyback 100 100 Output: Urine 400 750 Urethral (Bro) 750 Urine, Voided 400 Other: # Bowel Movements 1 - Physical Exam Head: Positive for: Atraumatic, Normocephalic Pupils: Positive for: PERRL Conjunctiva: Positive for: Normal Mouth: Positive for: Dry Nose (External): Positive for: Atraumatic Neck: Positive for: Normal Range of Motion Respiratory/Chest: Positive for: Clear to Auscultation Cardiovascular: Positive for: Regular Rate and Rhythm Abdomen: Positive for: Normal Bowel Sounds Upper Extremity: Positive for: Normal Inspection Lower Extremity: Positive for: Normal Inspection Neurological: Positive for: Other (Left arm is flaccid, slight withdrawal of left leg) Psychiatric: Positive for: Other (awake, lethergic) - Medications Active Medications: Active Medications Generic Name Dose Route Start Last Admin Trade Name Freq PRN Reason Stop Dose Admin Acetaminophen 650 mg 11/29/17 23:26 11/30/17 20:57 Tylenol 650mg/20.3ml Solution Ud PO 650 mg Q6 PRN Administration temp >100.2 F Acetaminophen 650 mg 12/01/17 13:06 12/01/17 20:07 Tylenol 650 Mg Supp DC 650 mg Q6 PRN Administration temp Acetaminophen 650 mg 12/01/17 16:12 Tylenol 650 Mg Supp DC ONCE PRN Fever >100.4 F Aspirin 300 mg 11/23/17 09:00 12/02/17 09:33 Aspirin Supp DC 300 mg DAILY [facility] Administration Aspirin 325 mg 11/29/17 09:00 12/01/17 09:20 Aspirin NG 325 mg DAILY [facility] Administration Atorvastatin Calcium 10 mg 11/29/17 22:00 12/01/17 09:19 Lipitor NG 10 mg DAILY [facility] Administration Famotidine 20 mg 11/29/17 09:00 12/01/17 09:18 Pepcid PO 20 mg DAILY [facility] Administration Piperacillin Sod/Tazobactam 100 mls @ 100 mls/hr 12/01/17 22:00 12/03/17 04: 30 Sod 3.375 gm/ Sodium Chloride IVPB 100 mls/hr Q6 [facility] Administration Protocol Vancomycin HCl 1 gm/ Sodium 250 mls @ 166.667 mls/hr 12/01/17 17:48 12/02/17 08:47 Chloride IVPB 166.667 mls/hr DAILY [facility] Administration Protocol Insulin Detemir 12 units 11/29/17 07:45 12/02/17 21:28 Levemir SC Not Given HS [facility] Insulin Human Lispro 0 units 11/23/17 06:45 12/03/17 00:00 Humalog SC Not Given 0000,0600,1200,1800 [facility] Protocol Pantoprazole Sodium 40 mg 12/01/17 18:00 12/02/17 08:46 Protonix Inj IVP 40 mg DAILY [facility] Administration - Patient Studies Lab Studies: Microbiology Studies 12/01/17 16:45 MRSA Culture (Admit) - Final Naris MRSA NOT DETECTED Lab Studies 12/03/17 12/03/17 12/03/17 Range/Units 06:35 04:35 04:35 WBC 10.2 (4.8-10.8) K/uL RBC 3.85 L (4.40-5.90) Mil/uL Hgb 11.8 L (12.0-18.0) g/dL Hct 35.5 (35.0-51.0) % MCV 92.3 (80.0-94.0) fl MCH 30.6 (27.0-31.0) pg MCHC 33.2 (33.0-37.0) g/dL RDW 13.4 (11.5-14.5) % Plt Count 156 (130-400) K/uL MPV 10.5 (7.2-11.7) fl Neut % (Auto) 84.5 H (50.0-75.0) % Lymph % (Auto) 9.6 L (20.0-40.0) % [place] % (Auto) 3.8 (0.0-10.0) % Eos % (Auto) 1.8 (0.0-4.0) % Baso % (Auto) 0.3 (0.0-2.0) % Neut # (Auto) 8.6 H (1.8-7.0) K/uL Lymph # (Auto) 1.0 (1.0-4.3) K/uL [place] # (Auto) 0.4 (0.0-0.8) K/uL Eos # (Auto) 0.2 (0.0-0.7) K/uL Baso # (Auto) 0.0 (0.0-0.2) K/uL Sodium 143 (132-148) mmol/l Potassium 4.2 (3.6-5.0) MMOL/L Chloride 102 (98-107) mmol/L Carbon Dioxide 29 (22-30) mmol/L Anion Gap 16 (10-20) BUN 26 H (9-20) mg/dl Creatinine 1.1 (0.8-1.5) mg/dl Est GFR ( Amer) > 60 Est GFR (Non-Af Amer) > 60 POC Glucose (mg/dL) 146 H (65-110) mg/dL Random Glucose 98 (75-110) mg/dL Calcium 7.8 L (8.4-10.2) mg/dL Total Bilirubin 0.7 (0.2-1.3) mg/dl AST 157 H (17-59) U/L ALT 106 H (21-72) U/L Alkaline Phosphatase 285 H (38-126) U/L Total Protein 5.9 L (6.3-8.2) G/DL Albumin 2.5 L (3.5-5.0) g/dL Globulin 3.4 (2.2-3.9) gm/dL Albumin/Globulin Ratio 0.7 L (1.0-2.1) 12/02/17 12/02/17 12/02/17 Range/Units 20:46 18:09 11:59 WBC (4.8-10.8) K/uL RBC (4.40-5.90) Mil/uL Hgb (12.0-18.0) g/dL Hct (35.0-51.0) % MCV (80.0-94.0) fl MCH (27.0-31.0) pg MCHC (33.0-37.0) g/dL RDW (11.5-14.5) % Plt Count (130-400) K/uL MPV (7.2-11.7) fl Neut % (Auto) (50.0-75.0) % Lymph % (Auto) (20.0-40.0) % [place] % (Auto) (0.0-10.0) % Eos % (Auto) (0.0-4.0) % Baso % (Auto) (0.0-2.0) % Neut # (Auto) (1.8-7.0) K/uL Lymph # (Auto) (1.0-4.3) K/uL [place] # (Auto) (0.0-0.8) K/uL Eos # (Auto) (0.0-0.7) K/uL Baso # (Auto) (0.0-0.2) K/uL Sodium (132-148) mmol/l Potassium (3.6-5.0) MMOL/L Chloride (98-107) mmol/L Carbon Dioxide (22-30) mmol/L Anion Gap (10-20) BUN (9-20) mg/dl Creatinine (0.8-1.5) mg/dl Est GFR ( Amer) Est GFR (Non-Af Amer) POC Glucose (mg/dL) 108 110 101 (65-110) mg/dL Random Glucose (75-110) mg/dL Calcium (8.4-10.2) mg/dL Total Bilirubin (0.2-1.3) mg/dl AST (17-59) U/L ALT (21-72) U/L Alkaline Phosphatase (38-126) U/L Total Protein (6.3-8.2) G/DL Albumin (3.5-5.0) g/dL Globulin (2.2-3.9) gm/dL Albumin/Globulin Ratio (1.0-2.1) Laboratory Results - last 24 hr 12/02/17 12/02/17 12/02/17 11:59 18:09 20:46 WBC RBC Hgb Hct MCV MCH MCHC RDW Plt Count MPV Neut % (Auto) Lymph % (Auto) [place] % (Auto) Eos % (Auto) Baso % (Auto) Neut # (Auto) Lymph # (Auto) [place] # (Auto) Eos # (Auto) Baso # (Auto) Sodium Potassium Chloride Carbon Dioxide Anion Gap BUN Creatinine Est GFR ( Amer) Est GFR (Non-Af Amer) POC Glucose (mg/dL) 101 110 108 Random Glucose Calcium Total Bilirubin AST ALT Alkaline Phosphatase Total Protein Albumin Globulin Albumin/Globulin Ratio 12/03/17 12/03/17 12/03/17 04:35 04:35 06:35 WBC 10.2 RBC 3.85 L Hgb 11.8 L Hct 35.5 MCV 92.3 MCH 30.6 MCHC 33.2 RDW 13.4 Plt Count 156 MPV 10.5 Neut % (Auto) 84.5 H Lymph % (Auto) 9.6 L [place] % (Auto) 3.8 Eos % (Auto) 1.8 Baso % (Auto) 0.3 Neut # (Auto) 8.6 H Lymph # (Auto) 1.0 [place] # (Auto) 0.4 Eos # (Auto) 0.2 Baso # (Auto) 0.0 Sodium 143 Potassium 4.2 Chloride 102 Carbon Dioxide 29 Anion Gap 16 BUN 26 H Creatinine 1.1 Est GFR ( Amer) > 60 Est GFR (Non-Af Amer) > 60 POC Glucose (mg/dL) 146 H Random Glucose 98 Calcium 7.8 L Total Bilirubin 0.7 AST 157 H ALT 106 H Alkaline Phosphatase 285 H Total Protein 5.9 L Albumin 2.5 L Globulin 3.4 Albumin/Globulin Ratio 0.7 L Fingerstick Blood Sugar Results: 108 Review of Systems - Review of Systems Systems not reviewed;Unavailable: Altered Mental Status - Constitutional Constitutional: absent: Fever, Chills - Cardiovascular Cardiovascular: As Per HPI. absent: Chest Pain - Respiratory Respiratory: As Per HPI. absent: Cough, Dyspnea, Hemoptysis - Gastrointestinal Gastrointestinal: As Per HPI Critical Care Progress Note - Extremities/Vascular Does the Patient have a Central Venous Catheter?: No Does the Patient need a Central Venous Catheter?: No Does the Patient have a Bro Catheter?: No Does the Patient need a Bro Catheter?: No - Nutrition Nutrition: Nutrition Category Date Time Status NPO Diet [DIET] Diets 11/23/17 Breakfast Active Assessment/Plan (1) CVA (cerebral vascular accident) Current Visit: Yes Status: Acute Comment: Multiple Acute/subacute bilateral CVAs in the left holder radiata plus Old hemorrhagic Frequent Neurochecks, Seizure precautions (2) Acute metabolic encephalopathy Current Visit: Yes Status: Acute Priority: High Comment: - IV fluid - Follow up labs - Neuro check (3) Acute renal failure Current Visit: Yes Status: Acute Priority: High Comment: Improving This morning labs revealed improved renal function BUN/Cr down to 26/1.1 Continue hydrations (4) Hypernatremia Current Visit: Yes Status: Acute Comment: Improved, Sodium level 143 (5) DM2 (diabetes mellitus, type 2) Current Visit: Yes Status: Chronic Priority: Medium (6) Dementia Current Visit: Yes Status: Chronic Priority: Low (7) HTN (hypertension) Current Visit: No Status: Acute Priority: Medium (8) Prophylactic measure Current Visit: No Status: Acute Comment: SCDs ASA 325 mg Protonix 40mg
[2017-12-03] MEDS: Insulin Lispro (humaLOG) 100 Units/ml Inj SC SCH ×3 (12:54→17:17)
[2017-12-03] MEDS: Silver Sulfadiazine 1% CREAM (50 gm) TOP SCH (17:08)
--- NOTE | 2017-12-03 19:57 | CP.PCM.PN ---
Subjective - Date & Time of Evaluation Date of Evaluation: 12/03/17 Time of Evaluation: 16:00 - Subjective Subjective: Remains lethargic, on vent-mask. Unable to clear secretions No fever Objective - Vital Signs/Intake and Output Vital Signs (last 24 hours): Temp Pulse Resp BP Pulse Ox 98.6 F 82 8 L 148/61 100 12/03/17 16:59 12/03/17 16:59 12/03/17 16:59 12/03/17 16:59 12/03/17 16:59 Intake and Output: 12/03/17 12/04/17 18:59 06:59 Intake Total 1300 Output Total 700 Balance 600 - Medications Medications: Current Medications Acetaminophen (Tylenol 650mg/20.3ml Solution Ud) 650 mg PO Q6 PRN PRN Reason: temp >100.2 F Last Admin: 11/30/17 20:57 Dose: 650 mg Acetaminophen (Tylenol 650 Mg Supp) 650 mg [place] Q6 PRN PRN Reason: temp Last Admin: 12/01/17 20:07 Dose: 650 mg Acetaminophen (Tylenol 650 Mg Supp) 650 mg [place] ONCE PRN PRN Reason: Fever >100.4 F Aspirin (Aspirin Supp) 300 mg [place] DAILY [facility] Last Admin: 12/03/17 10:39 Dose: 300 mg Aspirin (Aspirin) 325 mg NG DAILY [facility] Last Admin: 12/01/17 09:20 Dose: 325 mg Atorvastatin Calcium (Lipitor) 10 mg NG DAILY [facility] Last Admin: 12/01/17 09:19 Dose: 10 mg Famotidine (Pepcid) 20 mg PO DAILY [facility] Last Admin: 12/01/17 09:18 Dose: 20 mg Piperacillin Sod/Tazobactam (Sod 3.375 gm/ Sodium Chloride) 100 mls @ 100 mls/ hr IVPB Q6 [facility] PRN Reason: Protocol Last Admin: 12/03/17 17:08 Dose: 100 mls/hr Vancomycin HCl 1 gm/ Sodium (Chloride) 250 mls @ 166.667 mls/hr IVPB DAILY [facility] PRN Reason: Protocol Last Admin: 12/03/17 10:41 Dose: 166.667 mls/hr Insulin Detemir (Levemir) 12 units SC [facility] Last Admin: 12/02/17 21:28 Dose: Not Given Insulin Human Lispro (Humalog) 0 units SC 0000,0600,1200,1800 [facility] PRN Reason: Protocol Last Admin: 12/03/17 17:17 Dose: Not Given Pantoprazole Sodium (Protonix Inj) 40 mg IVP DAILY [facility] Last Admin: 12/03/17 10:40 Dose: 40 mg Silver Sulfadiazine (Silvadene 1% 50 Gm) 0 applic TOP BID [facility] Last Admin: 12/03/17 17:08 Dose: 1 applic - Labs Labs: 12/03/17 04:35 12/03/17 04:35 PT 13.2 Seconds (9.8-13.1) H 11/29/17 06:00 INR 1.2 (0.9-1.2) 11/29/17 06:00 APTT 36.5 Seconds (25.6-37.1) 11/29/17 06:00 - Constitutional Appears: Confused, Chronically Ill (lethargic) - Head Exam Head Exam: ATRAUMATIC - Respiratory Exam Respiratory Exam: Decreased Breath Sounds, NORMAL BREATHING PATTERN - Cardiovascular Exam Cardiovascular Exam: REGULAR RHYTHM, +S1, +S2 - GI/Abdominal Exam GI & Abdominal Exam: Soft, Normal Bowel Sounds - Neurological Exam Neurological Exam: Altered - Skin Skin Exam: Dry, Warm Assessment and Plan (1) Altered mental status Assessment & Plan: AMS secondary to hypernatremia now normalized afebrile x 48 hrs RLL pneumonia on cxr Antibiotics in progress NPO Code status DNR/DNI For Hospice eval Discussed with family Status: Acute (2) Hypokalemia Status: Acute (3) Dementia Status: Chronic (4) Acute renal failure Assessment & Plan: Stable renal function Status: Acute (5) DM2 (diabetes mellitus, type 2) Assessment & Plan: On Insulin Status: Chronic (6) History of CVA with residual deficit Status: Chronic
[2017-12-03] MEDS: Insulin Detemir 100 Units/ml Inj SC SCH (22:00)
[2017-12-04] MEDS: Insulin Lispro (humaLOG) 100 Units/ml Inj SC SCH ×3 (00:46→18:19)
[2017-12-04] MEDS: Piperacillin/Tazobact 3.375 GM in Sodium Chloride 0.9% 100 ML IVPB SCH ×4 (04:30→22:14)
[2017-12-04 05:35] LABS: HEMOGLOBIN 11.5 g/dL (12.0-18.0); MEAN CELL VOLUME 92.9 fl (80.0-94.0); MEAN CORPUSCULAR HEMOGLOBIN 30.4 pg (27.0-31.0); MEAN CORPUSCULAR HGB CONC 32.7 g/dL (33.0-37.0); RBC 3.78 Mil/uL (4.40-5.90); RED CELL DISTRIBUTION WIDTH 13.1 % (11.5-14.5); WHITE BLOOD COUNT 7.1 K/uL (4.8-10.8)
[2017-12-04 05:37] LABS: BLOOD UREA NITROGEN 22 mg/dl (9-20); GFR AFRICAN-AMERICAN > 60; GFR NON-AFRICAN AMERICAN > 60
[2017-12-04] MEDS: Silver Sulfadiazine 1% CREAM (50 gm) TOP SCH ×2 (09:35→18:19)
--- NOTE | 2017-12-04 15:19 | PN ---
DATE: 12/04/2017 CRITICAL CARE PROGRESS NOTE LOCATION: The patient in ICU bed 425. TIME SPENT: 35 minutes. SUBJECTIVE: The patient is seen and evaluated at the bedside. Past medical, surgical and social and family history reviewed. An 82-year-old male with a history significant for hypertension, diabetes mellitus type 2, dementia, and prior CVA with left-sided weakness admitted with altered mental status and poor p.o. intake. The patient was admitted to ICU with altered mental status due to metabolic from hypernatremia and uremia versus CVA. Hypernatremia has been corrected. CT head showed no acute intracranial abnormality. EEG showed slow PDR, no sleep, diffuse generalized slowing with no seizures or interictal epileptiform discharges consistent with severe encephalopathy. The patient overnight telemetry sinus rhythm, normotensive, afebrile on oxygen supplement with Venti mask saturating at 100%. OBJECTIVE: VITAL SIGNS: Temperature 98.5, heart rate 65, blood pressure 107/56, respiratory rate 14, thoracoabdominal. INTAKE AND OUTPUT: Intake 2000, output of 1320, positive balance 680. Weight 168 pounds. HEENT: Pupils are reactive. Conjunctivae pink. Sclerae white. NECK: Supple. No JVD. No carotid bruits. CHEST: Bilateral breath sounds diminished in intensity. Clear to auscultation anteriorly and laterally. HEART: Rhythm regular. S1 and S2 normal. No audible murmur. ABDOMEN: Soft, mildly distended. tympanic. EXTREMITIES: No peripheral or digital cyanosis. No palpable cord. DP palpable. NEUROLOGIC: Decreased tone in all extremities, left more left than the right with respect to pain. SKIN: Without rash. CURRENT MEDICATIONS: Tylenol 650 every 6 hours p.r.n., aspirin 300 mg per rectum daily, aspirin 325 mg NG daily, Lipitor 10 mg NG daily, D5W at 75 mL per hour, Pepcid 20 mg p.o. daily, Levemir 12 units subcu at bedtime, Protonix 40 IV daily, Zosyn 3.375 g IV every 6 hours, and vancomycin 1 g IV daily. LABORATORY DATA: WBC 7.1, hemoglobin 11.5, hematocrit 35.1, and platelet count 206,000. PT , INR 1.2, and PTT 36.5. ABG; pH of 7.55, pCO2 of 34, pO2 of 65, and saturation 96.7 on FiO2 of 40%. SMA-7; sodium 138, potassium 4.2, chloride 102, CO2 29, blood urea nitrogen 22, creatinine 1, and random glucose 104. Urinalysis, RBC 11, WBC 4, and squamous epithelial cells less than 1. Microbiology, urine culture, no growth reported. Nasal smear MRSA negative. Blood culture no growth reported. Chest x-ray dated 11/29/2017, NG tube terminates in the distal esophagus region, atelectasis left base. IMPRESSION AND PLAN: 1. Cerebrovascular accident, with multiple acute subacute bilateral cerebrovascular accident in the left holder radiata plus old hemorrhagic. EEG showed no seizure activity. Closely monitor mental status. 2. Status post acute metabolic encephalopathy from hypernatremia currently corrected. Continue D5W at 75 mL/hour. 3. Acute renal failure improving with IV hydration with continued improvement of BUN and creatinine. 4. Diabetes mellitus type 2: Continue current coverage. 5. Dementia, chronic. 6. Hypertension, improved. 7. Continue DVT and GI prophylaxis. 8. Prognosis remains guarded. Currently DNR and DNI. Family concerned about possible hospice care pending discussion with the patient's . As the patient remains at high risk for aspiration, we would consider for PEG placement if it is okay with family. Ramone Melvin MD
[2017-12-04] MEDS: Insulin Detemir 100 Units/ml Inj SC SCH (22:13)
--- NOTE | 2017-12-04 22:22 | CP.PCM.PN ---
Subjective - Date & Time of Evaluation Date of Evaluation: 12/04/17 Time of Evaluation: 17:45 - Subjective Subjective: Remains lethargic. On venti mask. Family considering Hospice. Objective - Vital Signs/Intake and Output Vital Signs (last 24 hours): Temp Pulse Resp BP Pulse Ox 98.8 F 67 13 100/57 L 100 12/04/17 16:00 12/04/17 17:00 12/04/17 16:00 12/04/17 17:00 12/04/17 16:00 Intake and Output: 12/04/17 12/05/17 18:59 06:59 Intake Total 1250 Output Total 500 Balance 750 - Medications Medications: Current Medications Acetaminophen (Tylenol 650mg/20.3ml Solution Ud) 650 mg PO Q6 PRN PRN Reason: temp >100.2 F Last Admin: 11/30/17 20:57 Dose: 650 mg Acetaminophen (Tylenol 650 Mg Supp) 650 mg [place] Q6 PRN PRN Reason: temp Last Admin: 12/01/17 20:07 Dose: 650 mg Acetaminophen (Tylenol 650 Mg Supp) 650 mg [place] ONCE PRN PRN Reason: Fever >100.4 F Aspirin (Aspirin Supp) 300 mg [place] DAILY [facility] Last Admin: 12/04/17 09:33 Dose: 300 mg Aspirin (Aspirin) 325 mg NG DAILY [facility] Last Admin: 12/01/17 09:20 Dose: 325 mg Atorvastatin Calcium (Lipitor) 10 mg NG DAILY [facility] Last Admin: 12/01/17 09:19 Dose: 10 mg Famotidine (Pepcid) 20 mg PO DAILY [facility] Last Admin: 12/01/17 09:18 Dose: 20 mg Insulin Detemir (Levemir) 12 units SC HS [facility] Last Admin: 12/04/17 22:13 Dose: 12 units Insulin Human Lispro (Humalog) 0 units SC 0000,0600,1200,1800 [facility] PRN Reason: Protocol Last Admin: 12/04/17 18:19 Dose: Not Given Pantoprazole Sodium (Protonix Inj) 40 mg IVP DAILY [facility] Last Admin: 12/04/17 09:33 Dose: 40 mg Silver Sulfadiazine (Silvadene 1% 50 Gm) 0 applic TOP BID [facility] Last Admin: 12/04/17 18:19 Dose: 1 applic - Labs Labs: 12/04/17 04:20 12/04/17 04:20 PT 13.2 Seconds (9.8-13.1) H 11/29/17 06:00 INR 1.2 (0.9-1.2) 11/29/17 06:00 APTT 36.5 Seconds (25.6-37.1) 11/29/17 06:00 - Constitutional Appears: Confused, Chronically Ill - Head Exam Head Exam: ATRAUMATIC - Respiratory Exam Respiratory Exam: Decreased Breath Sounds, NORMAL BREATHING PATTERN - Cardiovascular Exam Cardiovascular Exam: REGULAR RHYTHM, +S1, +S2 - GI/Abdominal Exam GI & Abdominal Exam: Soft, Normal Bowel Sounds - Neurological Exam Neurological Exam: Altered - Skin Skin Exam: Dry, Warm Assessment and Plan (1) Altered mental status Assessment & Plan: AMS secondary to hypernatremia now normalized NPO maintained Code status DNR/DNI For Hospice eval Discussed with family Status: Acute (2) Hypokalemia Status: Acute (3) Dementia Status: Chronic (4) Acute renal failure Assessment & Plan: Stable renal function Status: Acute (5) DM2 (diabetes mellitus, type 2) Assessment & Plan: On insulin Status: Chronic (6) History of CVA with residual deficit Status: Chronic
[2017-12-05] MEDS: Insulin Lispro (humaLOG) 100 Units/ml Inj SC SCH ×3 (00:16→15:55)
[2017-12-05] MEDS: Silver Sulfadiazine 1% CREAM (50 gm) TOP SCH ×2 (08:46→16:48)
[2017-12-05] MEDS: Insulin Detemir 100 Units/ml Inj SC SCH (22:51)
--- NOTE | 2017-12-05 23:35 | CP.PCM.PN ---
Subjective - Date & Time of Evaluation Date of Evaluation: 12/05/17 Time of Evaluation: 11:10 - Subjective Subjective: Slightly less lethargic today. Able to open eyes and move extremities No overnight events per nursing staff Objective - Vital Signs/Intake and Output Vital Signs (last 24 hours): Temp Pulse Resp BP Pulse Ox 97.8 F 62 20 128/76 95 12/05/17 16:00 12/05/17 16:00 12/05/17 16:00 12/05/17 16:00 12/05/17 16:00 Intake and Output: 12/05/17 12/06/17 18:59 06:59 Intake Total 450 150 Output Total 900 Balance -450 150 - Medications Medications: Current Medications Acetaminophen (Tylenol 650mg/20.3ml Solution Ud) 650 mg PO Q6 PRN PRN Reason: temp >100.2 F Last Admin: 11/30/17 20:57 Dose: 650 mg Acetaminophen (Tylenol 650 Mg Supp) 650 mg [place] Q6 PRN PRN Reason: temp Last Admin: 12/01/17 20:07 Dose: 650 mg Acetaminophen (Tylenol 650 Mg Supp) 650 mg [place] ONCE PRN PRN Reason: Fever >100.4 F Aspirin (Aspirin Supp) 300 mg [place] DAILY [facility] Last Admin: 12/05/17 08:45 Dose: 300 mg Aspirin (Aspirin) 325 mg NG DAILY [facility] Last Admin: 12/01/17 09:20 Dose: 325 mg Atorvastatin Calcium (Lipitor) 10 mg NG DAILY [facility] Last Admin: 12/01/17 09:19 Dose: 10 mg Famotidine (Pepcid) 20 mg PO DAILY [facility] Last Admin: 12/01/17 09:18 Dose: 20 mg Insulin Detemir (Levemir) 12 units SC HS [facility] Last Admin: 12/05/17 22:51 Dose: 12 units Insulin Human Lispro (Humalog) 0 units SC 0000,0600,1200,1800 [facility] PRN Reason: Protocol Last Admin: 12/05/17 15:55 Dose: Not Given Pantoprazole Sodium (Protonix Inj) 40 mg IVP DAILY [facility] Last Admin: 12/05/17 08:45 Dose: 40 mg Silver Sulfadiazine (Silvadene 1% 50 Gm) 0 applic TOP BID [facility] Last Admin: 12/05/17 16:48 Dose: 1 applic - Labs Labs: 12/04/17 04:20 12/04/17 04:20 PT 13.2 Seconds (9.8-13.1) H 11/29/17 06:00 INR 1.2 (0.9-1.2) 11/29/17 06:00 APTT 36.5 Seconds (25.6-37.1) 11/29/17 06:00 - Constitutional Appears: Confused, Chronically Ill - Head Exam Head Exam: ATRAUMATIC - Respiratory Exam Respiratory Exam: Decreased Breath Sounds, NORMAL BREATHING PATTERN - Cardiovascular Exam Cardiovascular Exam: REGULAR RHYTHM, +S1, +S2 - GI/Abdominal Exam GI & Abdominal Exam: Soft, Normal Bowel Sounds - Neurological Exam Neurological Exam: Altered - Skin Skin Exam: Dry, Warm Assessment and Plan (1) Altered mental status Assessment & Plan: AMS secondary to hypernatremia now normalized NPO maintained Code status DNR/DNI For Hospice eval Discussed with family Status: Acute (2) Hypokalemia Status: Acute (3) Dementia Status: Chronic (4) Acute renal failure Assessment & Plan: Stable renal function Status: Acute (5) DM2 (diabetes mellitus, type 2) Assessment & Plan: On insulin Status: Chronic (6) History of CVA with residual deficit Status: Chronic
[2017-12-06] MEDS: Insulin Lispro (humaLOG) 100 Units/ml Inj SC SCH ×4 (00:30→17:59)
[2017-12-06] MEDS: Silver Sulfadiazine 1% CREAM (50 gm) TOP SCH ×2 (08:55→17:38)
[2017-12-06] MEDS: Insulin Detemir 100 Units/ml Inj SC SCH (21:53)
--- NOTE | 2017-12-06 23:17 | CP.PCM.PN ---
Subjective - Date & Time of Evaluation Date of Evaluation: 12/06/17 Time of Evaluation: 15:35 - Subjective Subjective: Seen and examined at bedside, lethargic, able to open eyes Remains on venti mask Objective - Vital Signs/Intake and Output Vital Signs (last 24 hours): Temp Pulse Resp BP Pulse Ox 98.4 F 64 20 153/81 H 99 12/06/17 16:58 12/06/17 16:58 12/06/17 16:58 12/06/17 16:58 12/06/17 16:58 Intake and Output: 12/06/17 12/07/17 18:59 06:59 Intake Total 600 Output Total 1800 Balance -1200 - Medications Medications: Current Medications Acetaminophen (Tylenol 650mg/20.3ml Solution Ud) 650 mg PO Q6 PRN PRN Reason: temp >100.2 F Last Admin: 11/30/17 20:57 Dose: 650 mg Acetaminophen (Tylenol 650 Mg Supp) 650 mg [place] Q6 PRN PRN Reason: temp Last Admin: 12/01/17 20:07 Dose: 650 mg Acetaminophen (Tylenol 650 Mg Supp) 650 mg [place] ONCE PRN PRN Reason: Fever >100.4 F Aspirin (Aspirin Supp) 300 mg [place] DAILY [facility] Last Admin: 12/06/17 08:53 Dose: 300 mg Aspirin (Aspirin) 325 mg NG DAILY [facility] Last Admin: 12/01/17 09:20 Dose: 325 mg Atorvastatin Calcium (Lipitor) 10 mg NG DAILY [facility] Last Admin: 12/01/17 09:19 Dose: 10 mg Famotidine (Pepcid) 20 mg PO DAILY [facility] Last Admin: 12/01/17 09:18 Dose: 20 mg Insulin Detemir (Levemir) 12 units SC HS [facility] Last Admin: 12/06/17 21:53 Dose: Not Given Insulin Human Lispro (Humalog) 0 units SC 0000,0600,1200,1800 [facility] PRN Reason: Protocol Last Admin: 12/06/17 17:59 Dose: Not Given Pantoprazole Sodium (Protonix Inj) 40 mg IVP DAILY [facility] Last Admin: 12/06/17 08:55 Dose: 40 mg Silver Sulfadiazine (Silvadene 1% 50 Gm) 0 applic TOP BID [facility] Last Admin: 12/06/17 17:38 Dose: 1 applic - Labs Labs: 12/04/17 04:20 12/04/17 04:20 PT 13.2 Seconds (9.8-13.1) H 11/29/17 06:00 INR 1.2 (0.9-1.2) 11/29/17 06:00 APTT 36.5 Seconds (25.6-37.1) 11/29/17 06:00 - Constitutional Appears: Confused, Chronically Ill - Head Exam Head Exam: ATRAUMATIC - Respiratory Exam Respiratory Exam: Decreased Breath Sounds, NORMAL BREATHING PATTERN - Cardiovascular Exam Cardiovascular Exam: REGULAR RHYTHM, +S1, +S2 - GI/Abdominal Exam GI & Abdominal Exam: Soft, Normal Bowel Sounds - Neurological Exam Neurological Exam: Altered - Skin Skin Exam: Dry, Warm Assessment and Plan (1) Altered mental status Assessment & Plan: AMS secondary to hypernatremia now normalized NPO maintained Code status DNR/DNI For Hospice eval Discussed with family Status: Acute (2) Hypokalemia Status: Acute (3) Dementia Status: Chronic (4) Acute renal failure Assessment & Plan: Stable renal function Status: Acute (5) DM2 (diabetes mellitus, type 2) Assessment & Plan: On insulin Status: Chronic (6) History of CVA with residual deficit Status: Chronic
[2017-12-07] MEDS: Insulin Lispro (humaLOG) 100 Units/ml Inj SC SCH ×3 (00:02→12:10)
[2017-12-07] MEDS: Silver Sulfadiazine 1% CREAM (50 gm) TOP SCH ×2 (08:44→16:46)
[2017-12-07] MEDS ORDERED: Dextrose 5%/0.9% NS 1,000 ML IV SCH (15:00)
[2017-12-07] MEDS: Insulin Detemir 100 Units/ml Inj SC SCH (22:17)
--- NOTE | 2017-12-07 23:18 | CP.PCM.PN ---
Subjective - Date & Time of Evaluation Date of Evaluation: 12/07/17 Time of Evaluation: 16:00 - Subjective Subjective: Seen and examined at bedside. Lethargic, able to open eyes, responds to tactile stimuli No events overnight per staff, remains on venti mask Objective - Vital Signs/Intake and Output Vital Signs (last 24 hours): Temp Pulse Resp BP Pulse Ox 98.4 F 67 20 130/77 99 12/07/17 15:48 12/07/17 15:48 12/07/17 15:48 12/07/17 15:48 12/07/17 15:48 - Medications Medications: Current Medications Acetaminophen (Tylenol 650mg/20.3ml Solution Ud) 650 mg PO Q6 PRN PRN Reason: temp >100.2 F Last Admin: 11/30/17 20:57 Dose: 650 mg Acetaminophen (Tylenol 650 Mg Supp) 650 mg [place] Q6 PRN PRN Reason: temp Last Admin: 12/01/17 20:07 Dose: 650 mg Acetaminophen (Tylenol 650 Mg Supp) 650 mg [place] ONCE PRN PRN Reason: Fever >100.4 F Aspirin (Aspirin Supp) 300 mg [place] DAILY [facility] Last Admin: 12/07/17 08:44 Dose: 300 mg Aspirin (Aspirin) 325 mg NG DAILY [facility] Last Admin: 12/01/17 09:20 Dose: 325 mg Atorvastatin Calcium (Lipitor) 10 mg NG DAILY [facility] Last Admin: 12/01/17 09:19 Dose: 10 mg Famotidine (Pepcid) 20 mg PO DAILY [facility] Last Admin: 12/01/17 09:18 Dose: 20 mg Dextrose (Dextrose 5% In Water 1000 Ml) 1,000 mls @ 75 mls/hr IV .[id number] [facility] Stop: 12/08/17 15:32 Last Admin: 12/07/17 15:34 Dose: 75 mls/hr Insulin Detemir (Levemir) 12 units SC HS [facility] Last Admin: 12/07/17 22:17 Dose: Not Given Insulin Human Lispro (Humalog) 0 units SC 0000,0600,1200,1800 [facility] PRN Reason: Protocol Last Admin: 12/07/17 12:10 Dose: Not Given Pantoprazole Sodium (Protonix Inj) 40 mg IVP DAILY [facility] Last Admin: 12/07/17 08:44 Dose: 40 mg Silver Sulfadiazine (Silvadene 1% 50 Gm) 0 applic TOP BID [facility] Last Admin: 12/07/17 16:46 Dose: 1 applic - Labs Labs: 12/04/17 04:20 12/04/17 04:20 PT 13.2 Seconds (9.8-13.1) H 11/29/17 06:00 INR 1.2 (0.9-1.2) 11/29/17 06:00 APTT 36.5 Seconds (25.6-37.1) 11/29/17 06:00 - Constitutional Appears: Chronically Ill - Head Exam Head Exam: ATRAUMATIC - Respiratory Exam Respiratory Exam: Decreased Breath Sounds, NORMAL BREATHING PATTERN - Cardiovascular Exam Cardiovascular Exam: REGULAR RHYTHM, +S1, +S2 - GI/Abdominal Exam GI & Abdominal Exam: Soft, Normal Bowel Sounds - Neurological Exam Neurological Exam: Altered - Skin Skin Exam: Dry, Warm Assessment and Plan (1) Altered mental status Assessment & Plan: AMS secondary to hypernatremia now normalized NPO maintained Code status DNR/DNI For Hospice eval Discussed with family Status: Acute (2) Hypokalemia Status: Acute (3) Dementia Status: Chronic (4) Acute renal failure Assessment & Plan: Stable renal function Status: Acute (5) DM2 (diabetes mellitus, type 2) Assessment & Plan: On insulin Status: Chronic (6) History of CVA with residual deficit Status: Chronic
[2017-12-08] MEDS: Insulin Lispro (humaLOG) 100 Units/ml Inj SC SCH ×4 (01:08→18:00)
[2017-12-08] MEDS ORDERED: Chlorhexidine Gluconate 1 APPL/PKT TP ONE (09:40)
[2017-12-08] MEDS: Silver Sulfadiazine 1% CREAM (50 gm) TOP SCH ×2 (09:49→16:31)
[2017-12-08] MEDS: Insulin Detemir 100 Units/ml Inj SC SCH (23:06)
--- NOTE | 2017-12-08 23:55 | CP.PCM.PN ---
Subjective - Date & Time of Evaluation Date of Evaluation: 12/08/17 Time of Evaluation: 18:00 - Subjective Subjective: Seen and examined at bedside, able to open eyes, responds to tactile stimuli Was seen and hospice entrance attendant today Objective - Vital Signs/Intake and Output Vital Signs (last 24 hours): Temp Pulse Resp BP Pulse Ox 98.7 F 71 20 125/65 95 12/08/17 17:32 12/08/17 17:32 12/08/17 17:32 12/08/17 17:32 12/08/17 17:32 Intake and Output: 12/08/17 12/09/17 18:59 06:59 Intake Total 900 Output Total 1200 Balance -300 - Medications Medications: Current Medications Acetaminophen (Tylenol 650mg/20.3ml Solution Ud) 650 mg PO Q6 PRN PRN Reason: temp >100.2 F Last Admin: 11/30/17 20:57 Dose: 650 mg Acetaminophen (Tylenol 650 Mg Supp) 650 mg [place] Q6 PRN PRN Reason: temp Last Admin: 12/01/17 20:07 Dose: 650 mg Acetaminophen (Tylenol 650 Mg Supp) 650 mg [place] ONCE PRN PRN Reason: Fever >100.4 F Aspirin (Aspirin Supp) 300 mg [place] DAILY [facility] Last Admin: 12/08/17 09:38 Dose: 300 mg Aspirin (Aspirin) 325 mg NG DAILY [facility] Last Admin: 12/01/17 09:20 Dose: 325 mg Atorvastatin Calcium (Lipitor) 10 mg NG DAILY [facility] Last Admin: 12/01/17 09:19 Dose: 10 mg Famotidine (Pepcid) 20 mg PO DAILY [facility] Last Admin: 12/01/17 09:18 Dose: 20 mg Dextrose (Dextrose 5% In Water 1000 Ml) 1,000 mls @ 75 mls/hr IV .[id number] [facility] Stop: 12/10/17 23:07 Last Admin: 12/08/17 23:41 Dose: 75 mls/hr Insulin Detemir (Levemir) 12 units SC [facility] Last Admin: 12/08/17 23:06 Dose: Not Given Insulin Human Lispro (Humalog) 0 units SC 0000,0600,1200,1800 [facility] PRN Reason: Protocol Last Admin: 12/08/17 18:00 Dose: Not Given Silver Sulfadiazine (Silvadene 1% 50 Gm) 0 applic TOP BID [facility] Last Admin: 12/08/17 16:31 Dose: 1 applic - Labs Labs: 12/04/17 04:20 12/04/17 04:20 PT 13.2 Seconds (9.8-13.1) H 11/29/17 06:00 INR 1.2 (0.9-1.2) 11/29/17 06:00 APTT 36.5 Seconds (25.6-37.1) 11/29/17 06:00 - Constitutional Appears: Chronically Ill - Head Exam Head Exam: ATRAUMATIC - Respiratory Exam Respiratory Exam: Clear to Ausculation Bilateral, NORMAL BREATHING PATTERN - Cardiovascular Exam Cardiovascular Exam: REGULAR RHYTHM, +S1, +S2 - GI/Abdominal Exam GI & Abdominal Exam: Soft, Normal Bowel Sounds - Neurological Exam Neurological Exam: Altered - Skin Skin Exam: Dry, Warm Assessment and Plan (1) Altered mental status Assessment & Plan: AMS secondary to hypernatremia now normalized NPO maintained IVF on going Code status DNR/DNI Hospice evaluated today, for re-eval tomorrow Will discuss with family if not candidate for hospice Status: Acute (2) Hypokalemia Status: Acute (3) Dementia Status: Chronic (4) Acute renal failure Assessment & Plan: Stable renal function Status: Acute (5) DM2 (diabetes mellitus, type 2) Status: Chronic (6) History of CVA with residual deficit Status: Chronic
[2017-12-09] MEDS: Insulin Lispro (humaLOG) 100 Units/ml Inj SC SCH ×3 (07:55→17:25)
[2017-12-09] MEDS: Insulin Detemir 100 Units/ml Inj SC SCH (21:47)
[2017-12-10] MEDS: Insulin Lispro (humaLOG) 100 Units/ml Inj SC SCH ×3 (00:30→12:01)
[2017-12-10 07:50] VITALS: BP 116/71; PULSE 75; RESP 18; TEMP 98.1; O2SAT 99
== END 2017-12-10 16:42 | disposition hospice, home (50) | DRG 64 ==
LOC: H.ER 22:45 → H.ERHOLD 11-23 00:34 → H.ICU/CCU 11-23 01:51 → H.TEL 12-01 15:43 → H.ICU/CCU 12-01 16:20 → H.MEDSURG1 12-05 12:24
PROVIDERS: ADMIT Internal Medicine; ATTEND Internal Medicine
PROC: 3E0234Z Introduction of Serum, Toxoid and Vaccine into Muscle, Percutaneous Approach (ICD-10-PCS; 2017-11-23)
PROC: 3E0F7GC Introduction of Other Therapeutic Substance into Respiratory Tract, Via Natural or Artificial Opening (ICD-10-PCS; principal; 2017-12-02)
DX: I63.8 Other cerebral infarction (principal); G93.41 Metabolic encephalopathy; J18.9 Pneumonia, unspecified organism; N17.9 Acute kidney failure, unspecified; E87.0 Hyperosmolality and hypernatremia; I69.354 Hemiplegia and hemiparesis following cerebral infarction affecting left non-dominant side; E87.6 Hypokalemia; E11.65 Type 2 diabetes mellitus with hyperglycemia; F03.90 Unspecified dementia, unspecified severity, without behavioral disturbance, psychotic disturbance, mood disturbance, and anxiety; D69.6 Thrombocytopenia, unspecified; I69.391 Dysphagia following cerebral infarction; R13.10 Dysphagia, unspecified; E86.0 Dehydration; I10 Essential (primary) hypertension; D72.829 Elevated white blood cell count, unspecified; Z66 Do not resuscitate; Z23 Encounter for immunization; Z79.02 Long term (current) use of antithrombotics/antiplatelets; Z79.82 Long term (current) use of aspirin